=== PATIENT | female | born 1960 | race Caucasian/White ===

== ENCOUNTER 2019-04-14 09:38 | Inpatient (IN) ==
--- NOTE | 2019-04-12 13:59 | PAT Medication Instructions ---
Medication Instructions Date of Service April 12, 2019 Home Medications Medication Instructions Recorded sennosides [Senokot] 8.6 mg PO HS #30 tab 04/11/19 lisinopril 20 mg-hydrochlorothiazide 12.5 mg tablet 0.5 tab PO QAM multivitamin tablet 1 tab PO DAILY calcium carbonate 500 mg calcium (1,250 mg) chewable tablet 500 mg PO DAILY denosumab [Prolia] 60 mg SUBCUT .[id number] sennosides [Senokot] 8.6 mg PO HS docusate sodium [Colace] 100 mg PO BID PRN oxycodone 5 mg PO Q6H PRN Continue as directed denosumab [Prolia] 60 mg SUBCUT .[id number] DO NOT take the morning of surgery lisinopril 20 mg-hydrochlorothiazide 12.5 mg tablet 0.5 tab PO QAM multivitamin tablet 1 tab PO DAILY calcium carbonate 500 mg calcium (1,250 mg) chewable tablet 500 mg PO DAILY docusate sodium [Colace] 100 mg PO BID PRN Take morning of surgery With a small sip of water, OTHERWISE NOTHING TO EAT OR DRINK AFTER MIDNIGHT: oxycodone 5 mg PO Q6H PRN (okay to take up to 4 hours prior to surgery if needed) Take evening before surgery oxycodone 5 mg PO Q6H PRN (if needed) Other Notes If you have any questions please call us at [phone] or [phone] or [phone] or [phone]
--- NOTE | 2019-04-12 14:10 | Anesthesiology Consultation ---
Date of Service April 12, 2019 Assessment & Plan (1) Encounter for pre-operative examination: Chart Review Chart Review: Acceptable Risk for Surgery (pending preop testing (labs, EKG)) and Patient seen in Pre Admission Testing Teaching & Discussion Pre-Anesthesia Teaching/Discussion Notes: Instructed NPO after midnight before surgery,except medications with 15 cc of water. Medication instructions provided according to the PAT guidelines. History Surgery Operation Date: 04/14/19 12:00 Proposed Procedures p Right Laparoscopic Hand Assisted Nephrectomy - Roe Infante MD Height/Weight Height: 4 ft 11.75 in Weight: 71.4 kg Allergies Allergy/AdvReac Type Severity Reaction Status Date / Time No Known Allergies Allergy Verified 04/12/19 13:45 Medications Home Medications Medication Instructions Recorded Confirmed Last Taken lisinopril 20 0.5 tab PO QAM #30 tab 02/20/19 04/12/19 Unknown mg-hydrochlorothiazide 12.5 mg tablet multivitamin tablet 1 tab PO DAILY 02/20/19 04/12/19 Unknown calcium carbonate 500 mg calcium 500 mg PO DAILY tab 03/08/19 04/12/19 Unknown (1,250 mg) chewable tablet denosumab [Prolia] 60 mg SUBCUT .[id number] 04/11/19 04/12/19 Unknown sennosides [Senokot] 8.6 mg PO HS #30 tab 04/11/19 04/12/19 Unknown docusate sodium [Colace] 100 mg PO BID PRN 04/12/19 04/12/19 Unknown oxycodone 5 mg PO Q6H PRN 04/12/19 04/12/19 Unknown Past Medical History Medical History Arthritis Hypertension Osteoporosis Asthma childhood; no current issues H. pylori infection HX Right kidney mass Exercise / Class Metabolic Activity II 4-5 Yardwork/Stairs/Walk up hill Past Family History Family History Mother Osteoporosis Diabetes Sister Diabetes Osteoporosis Hypertension Brother Hypertension Aunt Diabetes Hypertension Past Surgical History Surgical History History of foot surgery RT/LEFT FOOT History of tooth extraction Ulnar nerve entrapment at elbow RT/LEFT ULNAR NERVE RELEASE History of carpal tunnel surgery RT/LEFT History of colonoscopy History of surgery on wrist LEFT (BONE SPUR REMOVED) Past Anesthesia History No Hx of Anesthesia Complications (except PONV) and No Family Hx of Anesthesia Complications History of PONV No Hx of Motion Sickness and History of PONV Social History Smoking Status: Former smoker tobacco type: cigarettes Do You Dip or Chew Tobacco: No Smoking End Date: Quit 30 YEARS AGO Hx Alcohol Use: Yes Alcohol type: hard liquor alcohol intake frequency: holidays/special occasions only Hx Substance Use: No substance use type: does not use Review of Systems Patient denies chest pain, shortness of breath, dyspnea on exertion, cough, wheezing, palpitations. Physical Exam Vital Signs VITALS BP 111/68 P 72 TEMP 97.5 SP02 99%RA RESP 16 PHYSICAL Full neck and c-spine range of motion. Full TMJ range of motion. TMD 3 finger breaths Mallampati Score 2 Dentition: missing molars, upper front cap Lungs: clear throughout to auscultation Cardiac: regular rate and rhythm, no murmurs noted Spine: normal Carotid arteries: negative bruit Extremities: no edema Testing Laboratory Results 04/11/19 WBC 10.95 H/H 11.4/35.1 PLATELETS 305 SODIUM 139 POTASSIUM 3.6 CHLORIDE 104 CO2 24 BUN 24 CREATININE 1.0 GLUCOSE [address]: 04/12/19: No significant abnormality identified within the chest. No evidence for metastatic disease.
[~2019-04-14 09:38] MED LIST: CEFAZOLIN 2000MG 2,000 MG/15 ML SYR IV SCH; DEXAMETHASONE SOD INJ 4 MG/ML VIAL ONE; GLYCOPYRROLATE 0.2 MG/ML VIAL ONE; HYDROmorphone INJ 2 MG/ML SYR/VIAL ONE; LIDOCAINE HCL 2% 2 ML VIAL/AMP(20MG/ML) INFIL ONE; LR 15ML/HR IV SCH; MIDAZOLAM HCL 1 MG/ML 2ML VIAL ONE; NEOSTIGMINE METHYLSULFATE 5 MG/5 ML SYR ONE; ONDANSETRON INJ 2 MG/ML 2 ML VIAL ONE; PROPOFOL IV EMULSION 10 MG/ML 20 ML VIAL IV ONE; ROCURONIUM BROMIDE 10 MG/ML 5 ML VIAL ONE; fentaNYL citrate 100 MCG/2 ML VIAL ONE
[2019-04-14] MEDS ORDERED: ACETAMINOPHEN 1,000 MG/100 ML VIAL IV SCH (10:30)
[2019-04-14] MEDS ORDERED: BUPIVACAINE 0.5 % 5 MG/1 ML MPF 30ML VIAL ONE (10:47)
[2019-04-14] MEDS ORDERED: ePHEDrine sulfate 50 MG/ML AMP IV PRN (11:21)
[2019-04-14] MEDS ORDERED: ATROPINE SULFATE 0.1 MG/ML 10ML SYR IV PRN (11:21)
[2019-04-14] MEDS ORDERED: ONDANSETRON INJ 2 MG/ML 2 ML VIAL IV PRN ×2 (11:21→14:22)
[2019-04-14] MEDS ORDERED: SCOPOLAMINE 1.5 MG TDSY TD ONE (11:35)
--- NOTE | 2019-04-14 11:58 | History & Physical Bridge Note ---
Date of Service April 14, 2019 History & Physical Bridge Note I have examined the patient, reviewed the History & Physical and in the interval since the performance of the History & Physical I have noted the following changes of clinical significance: no changes noted
[2019-04-14] MEDS ORDERED: KETAMINE HCL INJ 50 MG/ML 10 ML VIAL ONE (12:25)
[2019-04-14] MEDS ORDERED: PHENYLEPHRINE 100MCG/ML 5ML SYR ONE (12:40)
[2019-04-14] MEDS ORDERED: fentaNYL citrate 100 MCG/2 ML VIAL ONE (13:15)
[2019-04-14] MEDS ORDERED: SURGICEL ABSORB HEMOSTAT 2IN X 14IN TOP ONE (13:46)
[2019-04-14] MEDS ORDERED: ONDANSETRON INJ 2 MG/ML 2 ML VIAL ONE (13:55)
[2019-04-14] MEDS ORDERED: TISSEEL FIBRIN SEALANT 10ML TOP ONE (14:00)
[2019-04-14] MEDS ORDERED: OXYCODONE/ACETAMINOPHEN 5mg/325mg TAB PO PRN ×2 (14:22)
[2019-04-14] MEDS ORDERED: ACETAMINOPHEN 325 MG TAB PO PRN (14:22)
[2019-04-14] MEDS ORDERED: HYDROmorphone INJ 1 MG/ML SYRINGE IV PRN (14:26)
[2019-04-14] MEDS ORDERED: HYDROmorphone INJ 2 MG/ML SYR/VIAL IV PRN (14:26)
[2019-04-14] MEDS ORDERED: DOCUSATE SODIUM 100 MG CAP PO PRN (14:27)
[2019-04-14] MEDS: fentaNYL citrate 100 MCG/2 ML VIAL IV PRN ×5 (14:45→15:06)
--- NOTE | 2019-04-14 14:51 | Operative Report ---
Post Operative Report Pre & Post Diagnosis Operation Date: 04/14/19 12:00 Pre-Op Diagnosis: Right Renal Mass Post-Op Diagnosis: Right Renal Mass Procedure Operation Date: 04/14/19 12:00 Actual Procedures p Laparoscopic Hand Assisted Right Radical Nephrectomy(Right) - Roe Infante MD Surgeon Roe Infante MD Commercial Roofing Estimator Alivia Cheatham MD Estimated Blood Loss 200 Findings Consistent with Post-Op Diagnosis Specimens R kidney + LN Description of Procedure R MADELINN I attest to the content of the Intraoperative Record and any orders documented therein. Any exceptions are noted below.
[2019-04-14 15:03] LABS: Hematocrit (blood only) 33.3 % (37-47); Hemoglobin 10.7 g/dL (12.0-16.0); Mean Corpuscular Hemoglobin 23.8 pg (25-34); Mean Corpuscular Volume 74.2 fL (80-100); Mean Platelet Volume 8.6 fL (7.4-10.4); Platelet Count 274 K/uL (130-400); RDW Coefficient of Variation 16.3 % (11.5-14.5); RDW Standard Deviation 43.9 fL (36.4-46.3); Red Blood Count 4.49 M/uL (4.2-5.4)
[2019-04-14 15:13] LABS: Partial Thromboplastin Ratio 0.9; Partial Thromboplastin Time 25.4 Seconds (21.0-31.0); Prothrombin Time 10.4 Seconds (9.0-12.0)
[2019-04-14 15:15] LABS: Mean Corpuscular Hgb Conc 32.1 g/dL (32-36)
[2019-04-14 15:29] LABS: BUN Creatinine Ratio 15.3 (10-20); Calcium 8.7 mg/dl (8.5-10.1); Creatinine Clr Calc Pharmacy 52.9 ml/min; Est GFR (African American) 71.9; Est GFR (Non-African American) 62.1; Potassium 4.1 mmol/L (3.5-5.1)
[2019-04-14 15:37] LABS: Basophils # (auto) 0.01 K/uL (0-0.2); Basophils % (auto) 0.1 %; Eosinophils # (auto) 0.02 K/uL (0-0.5); Eosinophils % (auto) 0.1 %; Immature Granulocytes # (auto) 0.05 K/uL (0.00-0.02); Immature Granulocytes % (auto) 0.3 %; Lymphocytes # (auto) 1.14 K/uL (1.2-3.4); Lymphocytes % (auto) 7.2 %; Monocytes # (auto) 0.34 K/uL (0.11-0.59); Monocytes % (auto) 2.2 %; Neutrophils # (auto) 14.24 K/uL (1.4-6.5); Neutrophils % (auto) 90.1 %
--- NOTE | 2019-04-14 15:37 | Operative Report ---
DATE OF OPERATION: 04/14/2019 PREOPERATIVE DIAGNOSIS: A 13 x 10 x 8 cm right renal mass with perinephric adenopathy. POSTOPERATIVE DIAGNOSIS: A 13 x 10 x 8 cm right renal mass with perinephric adenopathy. PROCEDURE: Right-sided hand-assisted laparoscopic radical nephrectomy. SURGEON: Roe Infante MD. GUARD DRIVER: Yusuf Cheatham MD. The foundation assistant was present throughout the case for retraction, management of the laparoscopic camera, instrument passage, patient positioning, wound closure and general patient safety. ESTIMATED BLOOD LOSS: 200 mL. SPECIMENS SENT TO PATHOLOGY: Right kidney plus perinephric lymph nodes. DRAINS LEFT IN PLACE: Include a 16-[place] Mart catheter to gravity drainage. ANESTHESIA: General anesthesia with endotracheal intubation plus local at port sites. COMPLICATIONS: None. FINDINGS: Large, nodular and indurated right renal mass with nodes remaining adherent to tumor and IVC, and plane of dissection noted to be clean at the completion of the case. BRIEF HISTORY: Ms. Mccormick is a pleasant 58-year-old female who has presented earlier this week with acute right flank pain and underwent imaging via the Emergency Room. This has demonstrated a large and worrisome right renal mass with evidence of local marielena metastases. No evidence of distant metastases is present on CT scan of the abdomen nor on CT scan of the chest, which has been obtained perioperatively. Seeing the worrisome nature of the patient's imaging findings, she is being brought to the operating room for prompt extirpated surgery. Please see outpatient H and P for further details. Intravenous Ancef was provided for antibiotic coverage today and SCDs were used for DVT prophylaxis. Intravenous Tylenol was provided perioperatively for analgesic purposes. DESCRIPTION OF PROCEDURE: The patient was properly identified and brought into the operative suite after identification of appropriate consent on the chart. General anesthesia with endotracheal intubation was initiated and the patient was prepped and draped in standard fashion for this procedure. daytime babysitter-out procedure was followed. The patient was placed in a gentle right flank up position with all pressure points being padded and an axillary roll being present. Right arm was placed within an arm sling and the table was flexed. After this was complete, the patient was prepped and draped. A Andrews incision was made in the right lower quadrant and brought down to the fascia of the external oblique. This was incised and the abdomen was sharply entered using Metzenbaum scissors without any evidence of injury to the intra-abdominal contents. Wound was enlarged over the surgeon's finger and a hand port was placed. Abdomen was inspected and noted to be free of any worrisome adhesions in the midline. Nodular mass consistent with the patient's CT scan imaging was appreciated over the right kidney. Abdomen was insufflated to 15 mmHg and 2 additional 12 mm ports were placed in the mid clavicular line. The patient's mass was noted to contain a relative paucity of covering fat and be associated with numerous large and tortuous pathologic vessels. The white line of Toldt was identified and the colon was noted to be well removed. This was incised using Harmonic scalpel and the colon was mobilized medially. Thankfully, a plane of dissection medial to the tumor was found. The renal hilum was appreciated to be in a rather cephalad location with the kidney being pushed upward from the inferior pole mass. Dissection was carried on the medial aspect until the lateral aspect of the inferior vena cava was identified. Gonadal vein and ureter were not convincingly identified over the course of this dissection until later. Following the lateral plane of the IVC, the psoas muscle was easily identified thanks to a paucity of intra-abdominal fat. This allowed for lateral traction on the kidney and mobilization of the medial plane of dissection towards the hilum. A large number of thick and vascular adhesions were identified between the IVC and the kidney inferior to the renal hilum and were taken using a vascular staple load. This dissection was continued until the renal vein and renal artery were able to be palpated and circumscribed. These were taken using separate vascular staple loads until the kidney was devascularized. Thick lower pole attachments off the tumor were able to be taken with a vascular staple load. The ureter was noted to be in a posterior location behind the renal mass having been pushed laterally by the tumor mass. After the lower pole was freed, the upper pole of the kidney, which was normal on imaging and on palpation, was able to be circumscribed. Again vascular staple loads were taken to the level of the adrenal gland, which was noted to be grossly uninvolved to complete the mobilization of the kidney. The kidney was removed from the abdomen and handed off as a specimen. The plane of dissection was inspected and noted to be free of any residual palpably abnormal or marielena tissue. IVC was noted to be well cleaned over the extent which had been involved on CT scan imaging. Therefore, no further dissection was felt to be necessary at this time to remove more abnormal tissue. Surgicel as well as Tisseel tissue sealants were used over the surgical bed for additional hemostasis. Intra-abdominal pressure was lowered with no evidence of any active bleeding or oozing. The colon was replaced in its normal anatomic position and abdomen was desufflated, and ports and hand port were removed. Sponge and instrument count was noted to be correct. Flexion was removed from the table and the incision was closed in 2 layers using 0 Vicryl suture in a running fashion on the internal musculature and peritoneum and #1 Vicryl in both running and interrupted suture on a relatively flimsy external oblique fascia. Subcutaneous tissues were closed using 3-0 Vicryl and skin was closed using 4-0 Monocryl and Dermabond. The fascia was also closed at the level of the 12 mm ports with 0 Vicryl suture on a UR-6 followed by 4-0 Monocryl at the skin and Dermabond as well. Excess carbon dioxide gas had been removed from the abdomen prior to completion of closure. Anesthesia was reversed and the patient was transferred to the recovery room in stable condition. FOLLOWUP CARE: The patient will be admitted to the floor for standard postoperative management. I attest to the content of the Intraoperative Record and any orders documented therein. Any exception s are noted below.
[2019-04-14] MEDS: CHECK SCOPOLAMINE PATCH PLACEMENT SCH ×2 (16:00→23:32)
--- NOTE | 2019-04-14 16:22 | Anesthesiology Progress Note ---
Date of Service April 14, 2019 Anesthesia Post Procedure Vital Signs Vital Signs: Temp Pulse Pulse Resp BP Pulse Ox 04/14/19 15:35 36.4 C L 45 L 18 127/55 L 100 04/14/19 15:25 36.4 C L 47 L 19 123/57 L 100 04/14/19 15:15 36.4 C L 57 L 20 131/52 L 92 04/14/19 15:05 36.1 C L 52 L 14 140/63 100 04/14/19 14:55 36.1 C L 53 L 15 139/79 100 04/14/19 14:45 36.1 C L 54 L 19 150/71 H 100 04/14/19 14:37 36.1 C L 61 20 128/75 100 04/14/19 10:15 36.9 C 77 18 137/68 98 Pain Intensity Abdomen: Pain Intensity: 2 Transfer of Care Handoff Completed per policy Notes Mental Status: alert / awake / arousable and participated in evaluation Patient Amnestic to Procedure: Yes Nausea / Vomiting: adequately controlled Pain: adequately controlled Airway Patency, RR, SpO2: stable & adequate BP & HR: stable & adequate Hydration State: stable & adequate Anesthetic Complications: no major complications apparent and Pt Satisfied with anesthetic care
[2019-04-14] MEDS: CEFAZOLIN 2000MG 2,000 MG/15 ML SYR IV SCH (21:37)
[2019-04-14] MEDS: SENNA 8.6 MG TAB PO SCH (21:38)
[2019-04-14] MEDS: LACTATED RINGER'S 1,000 ML IV SCH ×2 (22:02→22:03)
[2019-04-15] MEDS: CEFAZOLIN 2000MG 2,000 MG/15 ML SYR IV SCH (04:00)
[2019-04-15 06:02] LABS: Basophils # (auto) 0.01 K/uL (0-0.2); Basophils % (auto) 0.1 %; Hematocrit (blood only) 33.5 % (37-47); Hemoglobin 10.9 g/dL (12.0-16.0); Immature Granulocytes # (auto) 0.02 K/uL (0.00-0.02); Immature Granulocytes % (auto) 0.2 %; Lymphocytes % (auto) 11.1 %; Mean Corpuscular Hemoglobin 23.8 pg (25-34); Mean Corpuscular Hgb Conc 32.5 g/dL (32-36); Mean Corpuscular Volume 73.1 fL (80-100); Mean Platelet Volume 8.7 fL (7.4-10.4); Monocytes # (auto) 1.05 K/uL (0.11-0.59); Neutrophils # (auto) 9.31 K/uL (1.4-6.5); Neutrophils % (auto) 79.6 %; Platelet Count 294 K/uL (130-400); RDW Coefficient of Variation 16.1 % (11.5-14.5); RDW Standard Deviation 42.7 fL (36.4-46.3); Red Blood Count 4.58 M/uL (4.2-5.4); White Blood Count 11.69 K/uL (4.8-10.8)
[2019-04-15 06:30] LABS: BUN Creatinine Ratio 11.6 (10-20); Calcium 8.2 mg/dl (8.5-10.1); Creatinine Clr Calc Pharmacy 44.8 ml/min; Est GFR (African American) 58.9; Est GFR (Non-African American) 50.8; Potassium 4.1 mmol/L (3.5-5.1)
[2019-04-15] MEDS: LACTATED RINGER'S 1,000 ML IV SCH (07:37)
[2019-04-15] MEDS: CALCIUM CARBONATE 1250MG TAB PO SCH (08:11)
[2019-04-15] MEDS: LISINOPRIL/HCTZ 20/12.5MG 1 TAB TAB PO SCH (08:11)
--- NOTE | 2019-04-15 08:42 | Urology Progress Note ---
Date of Service April 15, 2019 Assessment & Plan (1) Kidney mass: A/P 58 yo female POD#1 s/p R HALN. Doing well. Full liquids this AM. Advance activity. DC IVF later today if tolerating PO well. Consider advancing diet to soft mechanical later depending on results. Findings reviewed. Labwork acceptable - stable Hb, minimal rise in Cr so far. Patient with dilated and bleeding vessels in OR and bruising at incisions - Heparin held OVN, will provide SQ today. Subjective 58 yo female POD#1 s/p R HALN. She reports being OOBTC yesterday, taking clears this AM without nausea or emesis. Still groggy, feeling appropriate abdominal pain at side of hand port. No other events or complaints noted. Review of Systems Constitutional: no fever and no chills Eyes: no diplopia Ear, Nose, Mouth, Throat: no ear trauma Respiratory: no hemoptysis Cardiovascular: no chest pain Gastrointestinal: + abdominal pain Integumentary: no acne and no boil Neurologic: no paralysis Psychiatric: no hopelessness Allergy / Immunological: no tongue swelling Physical Exam Constitutional: WD/WN, vitals as above Eyes: eyes not dysmorphic ENMT: Ears: no external ear abnormality Neck: trachea midline; no anterior neck swelling Respiratory: no respiratory distress and does not use accessory muscles Cardiovascular: Vessels: radial pulses present Gastrointestinal (Abdomen): Inspection/Auscultation: abdomen not distended Percussion/Palpation: + abdomen tender (minimal, appropriate) and abdomen soft inc c/d/i with unchanged ecchymosis Musculoskeletal: Head/Neck/Chest: normocephalic and neck supple Skin: normal turgor Neurologic: awake; not obtunded Psychiatric: Orientation: oriented x 3 Lymphatic: no lymphadenopathy Results & Data Vital Signs (Past 12 Hours) Vital Signs Temp Pulse Resp BP Pulse Ox 04/15/19 07:26 36.8 C 71 16 144/75 H 98 04/15/19 03:57 37.1 C 67 18 156/79 H 95 04/14/19 23:59 36.9 C 66 17 160/78 H 97 PG Care Time/CCT Total # of Minutes Spent Total Time Spent with Patient: Total time spent is greater than 50% in coordination of care (as documented) at patient's floor/unit and/or counseling patient:
[2019-04-15] MEDS: HEPARIN SOD 5,000 UNIT/0.5 ML VIAL SQ SCH ×2 (11:28→21:23)
--- NOTE | 2019-04-15 17:02 | Anesthesiology Progress Note ---
Date of Service April 15, 2019 Anesthesia Post Procedure Vital Signs Vital Signs: Temp Pulse Resp BP Pulse Ox 04/15/19 15:33 37.2 C 75 17 159/84 H 98 04/15/19 11:27 64 18 162/79 H 96 04/15/19 07:26 36.8 C 71 16 144/75 H 98 04/15/19 03:57 37.1 C 67 18 156/79 H 95 04/14/19 23:59 36.9 C 66 17 160/78 H 97 04/14/19 19:03 36.5 C 64 17 146/82 H 97 04/14/19 17:57 36.4 C L 54 L 16 155/77 H 100 Pain Intensity Abdomen: Pain Intensity: 5 Transfer of Care Handoff Completed per policy Notes Mental Status: alert / awake / arousable and participated in evaluation Patient Amnestic to Procedure: Yes Nausea / Vomiting: adequately controlled Pain: adequately controlled Airway Patency, RR, SpO2: stable & adequate BP & HR: stable & adequate Hydration State: stable & adequate Anesthetic Complications: no major complications apparent and Pt Satisfied with anesthetic care
[2019-04-15] MEDS: SENNA 8.6 MG TAB PO SCH (21:23)
[2019-04-16] MEDS: CALCIUM CARBONATE 1250MG TAB PO SCH (07:35)
[2019-04-16] MEDS: LISINOPRIL/HCTZ 20/12.5MG 1 TAB TAB PO SCH (07:35)
--- NOTE | 2019-04-16 10:36 | Urology Progress Note ---
Date of Service April 16, 2019 Assessment & Plan (1) Kidney mass: 58 yo female POD#2 s/p R HALN, doing well. Regular diet this AM. If tolerates, DC home. Rx for Colace and narcotic provided. Postop limitations reviewed, postop visit confirmed. Patient vocalizes good understanding of the DC plan. Subjective 58 yo female POD#2 s/p R HALN, doing well. She was ambulatory yesterday, notes no pain but "soreness" in abdomen, no f/c/n/v, no BM, no distension, tolerating full liquids, hungry for more. Past notes reviewed, AM labs pending. Review of Systems Constitutional: no fever and no chills Eyes: no diplopia Ear, Nose, Mouth, Throat: no ear trauma Respiratory: no hemoptysis Cardiovascular: no chest pain Integumentary: no acne and no boil Neurologic: no paralysis Psychiatric: no hopelessness Allergy / Immunological: no tongue swelling Physical Exam Constitutional: WD/WN, vitals as above Eyes: eyes not dysmorphic ENMT: Ears: no external ear abnormality Neck: trachea midline; no anterior neck swelling Respiratory: no respiratory distress and does not use accessory muscles Cardiovascular: Vessels: radial pulses present Gastrointestinal (Abdomen): Inspection/Auscultation: abdomen not distended Percussion/Palpation: + abdomen tender (minimal, appropriate) and abdomen soft inc c/d/i with stable bruising Musculoskeletal: Head/Neck/Chest: normocephalic and neck supple Skin: normal turgor Neurologic: awake; not obtunded Psychiatric: Orientation: oriented x 3 Lymphatic: no lymphadenopathy Results & Data Vital Signs (Past 12 Hours) Vital Signs Temp Pulse Resp BP Pulse Ox 04/16/19 07:25 37.2 C 84 19 154/82 H 95 04/15/19 22:59 37.4 C 80 16 148/87 H 94 Laboratory Results Laboratory Results - last 48 hr 04/14/19 04/14/19 04/14/19 14:56 14:56 14:56 WBC 15.80 H RBC 4.49 Hgb 10.7 L Hct 33.3 L MCV 74.2 L MCH 23.8 L MCHC 32.1 RDW Std Deviation 43.9 RDW Coeff of Ebony 16.3 H Plt Count 274 MPV 8.6 Immature Gran % (Auto) 0.3 Neut % (Auto) 90.1 Lymph % (Auto) 7.2 Hughes % (Auto) 2.2 Eos % (Auto) 0.1 Baso % (Auto) 0.1 Immature Gran # (Auto) 0.05 H Neut # (Auto) 14.24 H Lymph # (Auto) 1.14 L Hughes # (Auto) 0.34 Eos # (Auto) 0.02 Baso # (Auto) 0.01 PT 10.4 INR 1.0 APTT 25.4 PTT Ratio 0.9 Sodium 142 Potassium 4.1 Chloride 111 H Carbon Dioxide 26 Anion Gap 5.0 BUN 15 Creatinine 1.00 Est Cr Clr Drug Dosing 52.9 Est GFR ( Amer) 71.9 Est GFR (Non-Af Amer) 62.1 BUN/Creatinine Ratio 15.3 Glucose 129 H Calcium 8.7 Lipase Hepatitis C Ab Screen 04/15/19 04/15/19 04/15/19 05:34 05:34 05:34 WBC 11.69 H RBC 4.58 Hgb 10.9 L Hct 33.5 L MCV 73.1 L MCH 23.8 L MCHC 32.5 RDW Std Deviation 42.7 RDW Coeff of Ebony 16.1 H Plt Count 294 MPV 8.7 Immature Gran % (Auto) 0.2 Neut % (Auto) 79.6 Lymph % (Auto) 11.1 Hughes % (Auto) 9.0 Eos % (Auto) 0.0 Baso % (Auto) 0.1 Immature Gran # (Auto) 0.02 Neut # (Auto) 9.31 H Lymph # (Auto) 1.30 Hughes # (Auto) 1.05 H Eos # (Auto) 0.00 Baso # (Auto) 0.01 PT INR APTT PTT Ratio Sodium 138 Potassium 4.1 Chloride 106 Carbon Dioxide 25 Anion Gap 7.0 BUN 14 Creatinine 1.18 Est Cr Clr Drug Dosing 44.8 Est GFR ( Amer) 58.9 Est GFR (Non-Af Amer) 50.8 BUN/Creatinine Ratio 11.6 Glucose 113 H Calcium 8.2 L Lipase 93 Hepatitis C Ab Screen Neg PG Care Time/CCT Total # of Minutes Spent Total Time Spent with Patient: Total time spent is greater than 50% in coordination of care (as documented) at patient's floor/unit and/or counseling patient:
[2019-04-16 10:37] LABS: Basophils # (auto) 0.01 K/uL (0-0.2); Basophils % (auto) 0.1 %; Eosinophils # (auto) 0.02 K/uL (0-0.5); Eosinophils % (auto) 0.2 %; Hematocrit (blood only) 33.7 % (37-47); Hemoglobin 11.2 g/dL (12.0-16.0); Immature Granulocytes # (auto) 0.04 K/uL (0.00-0.02); Immature Granulocytes % (auto) 0.3 %; Lymphocytes # (auto) 1.78 K/uL (1.2-3.4); Lymphocytes % (auto) 13.8 %; Mean Corpuscular Hemoglobin 24.6 pg (25-34); Mean Corpuscular Hgb Conc 33.2 g/dL (32-36); Mean Corpuscular Volume 73.9 fL (80-100); Mean Platelet Volume 8.8 fL (7.4-10.4); Monocytes # (auto) 1.08 K/uL (0.11-0.59); Monocytes % (auto) 8.4 %; Neutrophils # (auto) 9.94 K/uL (1.4-6.5); Neutrophils % (auto) 77.2 %; Platelet Count 303 K/uL (130-400); RDW Coefficient of Variation 16.5 % (11.5-14.5); RDW Standard Deviation 44.8 fL (36.4-46.3); Red Blood Count 4.56 M/uL (4.2-5.4); White Blood Count 12.87 K/uL (4.8-10.8)
--- NOTE | 2019-04-16 10:38 | Discharge Summary ---
Date of Service April 16, 2019 Admission HPI Per Admitting Provider Patient with a right renal mass being admitted for right hand-assisted laparoscopic nephrectomy and marielena dissection due to pathologic lymphadenopathy on CT scan. Please see H&P for further details. Admission Exam Per Admitting Provider See H&P Principal Diagnosis Right renal mass and pathologic lymphadenopathy. Discharge Exam Constitutional WD/WN, vitals as above Eyes eyes not dysmorphic ENMT Ears: no external ear abnormality Neck trachea midline; no anterior neck swelling Respiratory no respiratory distress and does not use accessory muscles Cardiovascular Vessels: radial pulses present Gastrointestinal (Abdomen) Inspection/Auscultation: abdomen not distended Percussion/Palpation: + abdomen tender (minimal, appropriate) and abdomen soft Musculoskeletal Head/Neck/Chest: normocephalic and neck supple Skin normal turgor Neurologic awake; not obtunded Psychiatric Orientation: oriented x 3 Lymphatic no lymphadenopathy Discharge Data Allergies Allergy/AdvReac Type Severity Reaction Status Date / Time hydromorphone [From Dilaudid] AdvReac Intermediate N/V Verified 04/14/19 10:45 Procedures Performed Operation Date: 04/14/19 12:00 Actual Procedures p Laparoscopic Hand Assisted Right Radical Nephrectomy(Right) - Roe Infante MD Hospital Course (1) Kidney mass: 58 yo female POD#2 s/p R HALN, doing well. Regular diet this AM. If tolerates, DC home. Rx for Colace and narcotic provided. Postop limitations reviewed, postop visit confirmed. Patient vocalizes good understanding of the DC plan. Total Time Total Time Spent Total Time Spent (In Minutes): 20 Total Time Includes: Examination of the Patient, Discharge Planning, Medication Reconciliation, Communication With Other Providers and Other Discharge Plan Discharge Items Patient Disposition: Home - Self-Care Reason For Visit: Renal Mass Discharge Diagnosis: Right renal mass with perinephric adenopathy s/p right hand assist lap nephrectomy. Condition: Good Discharge Goals: Therapeutic intervention Activity: Per 'Additional Instructions' section Activity Comment: walking and stairs in your home are okay Lifting: No more than 10 pounds Bathing: Keep incision dry Bathing Comment: okay to shower, no tub baths or soaking Sexual Activity: Wait until after follow-up appointment Exercise/Sports: Rest today and Wait until after follow-up appointment Driving/Machine Use: Resume 1 day after discharge Driving/Machine Use Comment: please do not drive while taking prescription pain control Non-emergency contact: Urologist Call non-emergency contact if: you have any medication questions, your symptoms worsen, your pain is not controlled, your pain is worsening, your pain is unusual for you, your temperature is above 101, your wound has increased redness and your wound has increased drainage Follow-up/Referrals: Roe Infante MD [Physician] - 04/29/19 2:30 pm Carloz Infante, [Primary Care Provider] - Diet: Regular Diet Comment: stay hydrated Addtl Provider Instructions: Please take all medications as prescribed and keep all follow-ups as scheduled. Please call our office at [phone] with any questions, concerns or need to reschedule appointments for any reason. We are happy to assist you. Recovering at home: We recommend having someone with you for the first few days after surgery to help care for you. It is okay to shower tomorrow. Please avoid swimming, bathing or using hot tub until incisions are well healed. Avoid driving until you are not requiring pain medication any further. Walk at least a few times a day. Increase your distance, as you feel able. Stairs in your home are okay. Please avoid strenuous or sexual activity until your follow-up. We recommend using stool softener (i.e. Colace) to prevent constipation and straining, especially the first two weeks post operatively. Call [facility] [place] [facility] at [phone] if you experience: Chest pain or trouble breathing (call 121 or go to the hospital). Fever of 101F or higher Symptoms of infection at incision site, including redness or swelling, warmth, or bad-smelling drainage If you have catheter, and you notice: o Bloody urine or drainage that is dark red or has large clots (Please remember a small amount of blood is normal) o No drainage from the catheter for more than 6 hours o The catheter comes out of your bladder Pain that is not controlled with medicines Prescriptions: Continued lisinopril-hydrochlorothiazide 20-12.5 mg tablet 0.5 tab PO QAM Qty: 30 RF: 0 multivitamin tablet 1 tab PO DAILY RF: 0 calcium carbonate [Calci-Chew] 500 mg calcium (1,250 mg) tablet,chewable 500 mg PO DAILY RF: 0 docusate sodium [Colace] 100 mg capsule 100 mg PO BID PRN (Reason: Constipation) Qty: 30 RF: 0 oxycodone 5 mg tablet 5 mg PO Q6H PRN (Reason: Pain) Qty: 20 RF: 0 Prolia 60 mg/mL syringe 60 mg subcut .[id number] RF: 0 sennosides [Senokot] 8.6 mg tablet 8.6 mg PO HS Qty: 30 RF: 0 Stand-Alone Forms: [facility] Discharge Orders: Discharge Order (Routine); Ordered 04/16/19 Ordered By: Roe Infante Admission Data Admit Date/Time: 04/14/19 14:22 Attending Provider: Roe Infante I. Admit Provider: Roe Infante I. Primary Care Provider: Carloz Infante Service: Surgical Services Other Pending Studies at Discharge: Yes Studies:: Pathology report
[2019-04-16] MEDS: HEPARIN SOD 5,000 UNIT/0.5 ML VIAL SQ SCH (11:21)
[2019-04-16 12:01] LABS: BUN Creatinine Ratio 9.4 (10-20); Calcium 9.3 mg/dl (8.5-10.1); Creatinine Clr Calc Pharmacy 41.3 ml/min; Est GFR (African American) 53.4; Potassium 3.9 mmol/L (3.5-5.1)
--- NOTE | 2019-04-20 06:08 | Coding Query ---
PATHOLOGY To promote full compliance with coding requirements relating to patient care, physician participation is requested in all cases of power generation equipment repairer uncertainty. Please assist us with the question(s) below: Please review the Pathology report and please document any relevant diagnosis(es) below: Diagnosis(es): Renal cell carcinoma with marielena metastasis. Thank you Chayito WHITLEY
== END 2019-04-16 14:01 | disposition home or self-care (01) | DRG 658 ==
LOC: ASU 09:38 → 3W 14:22

== ENCOUNTER 2019-07-30 10:23 | Inpatient (IN) ==
[2019-07-30] MEDS ORDERED: DiphenhydrAMINE HCL 50 MG/ML VIAL IV STA (10:54)
[2019-07-30] MEDS ORDERED: MoRPHine SULFATE 4 MG/ML 1 ML CARP\\VIAL IV STA (10:54)
[2019-07-30] MEDS ORDERED: ONDANSETRON INJ 2 MG/ML 2 ML VIAL IV STA (10:54)
[2019-07-30] MEDS ORDERED: SODIUM CHLORIDE 0.9% 500 ML IV SCH (11:00)
[2019-07-30 11:18] LABS: Basophils # (auto) 0.01 K/uL (0-0.2); Basophils % (auto) 0.1 %; Eosinophils # (auto) 0.21 K/uL (0-0.5); Hematocrit (blood only) 41.7 % (37-47); Hemoglobin 14.2 g/dL (12.0-16.0); Immature Granulocytes # (auto) 0.02 K/uL (0.00-0.02); Immature Granulocytes % (auto) 0.2 %; Lymphocytes # (auto) 2.03 K/uL (1.2-3.4); Lymphocytes % (auto) 19.1 %; Mean Corpuscular Hemoglobin 27.4 pg (25-34); Mean Corpuscular Hgb Conc 34.1 g/dL (32-36); Mean Corpuscular Volume 80.3 fL (80-100); Mean Platelet Volume 8.7 fL (7.4-10.4); Monocytes # (auto) 0.92 K/uL (0.11-0.59); Monocytes % (auto) 8.6 %; Neutrophils # (auto) 7.46 K/uL (1.4-6.5); Platelet Count 235 K/uL (130-400); RDW Coefficient of Variation 16.7 % (11.5-14.5); RDW Standard Deviation 48.9 fL (36.4-46.3); Red Blood Count 5.19 M/uL (4.2-5.4); White Blood Count 10.65 K/uL (4.8-10.8)
[2019-07-30 11:34] LABS: Alanine Aminotransferase 32 U/L (12-78); Albumin Level 3.5 gm/dl (3.4-5.0); Aspartate Aminotransferase 30 U/L (15-37); BUN Creatinine Ratio 19.7 (10-20); Blood Urea Nitrogen 30 mg/dl (7-18); Calcium 10.3 mg/dl (8.5-10.1); Carbon Dioxide 31 mmol/L (21-32); Chloride 108 mmol/L (98-107); Creatinine Clr Calc Pharmacy 34.5 ml/min; Est GFR (Non-African American) 37.1; Glucose 96 mg/dl (70-99); Lipase 281 U/L (73-393); Potassium 3.9 mmol/L (3.5-5.1); Sodium 143 mmol/L (136-145)
[2019-07-30 11:39] LABS: Albumin Globulin Ratio 0.8 (0.9-2); Alkaline Phosphatase 72 U/L (45-117); Bilirubin,Total 0.4 mg/dl (0.2-1); Globulin 4.2 gm/dl (2.5-4.0); Total Protein 7.7 gm/dl (6.4-8.2); Troponin I < 0.015 ng/ml (0-0.045)
[2019-07-30] MEDS ORDERED: IOVERSOL 100ml IV PRN (11:46)
--- NOTE | 2019-07-30 12:07 | CT Scan Report ---
CT abd pelvis IV con only CLINICAL HISTORY: 59 years-old Female presenting with epigastric and upper abdominal pain after chemo 4 days ago. TECHNIQUE: Multidetector CT of the abdomen and pelvis was performed after the administration of intra venous contrast. IV contrast: 93 mL of Optiray 320. One or more dose lowering techniques were used co nsistent with the principles of ALARA (as low as reasonably achievable), including automatic exposure control, mA or kV adjustment to individual patient size, and/or use of iterative reconstruction. COMPARISON: 06/20/2019. CT DOSE (mGy.cm): The estimated cumulative dose is 409.04 mGy.cm. 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 Lung bases: Normal heart size. No pericardial or pleural effusion. Minimal dependent changes likely a telectasis. Liver: Normal morphology. Redemonstration of several hepatic lesions, which measure up to 10 mm. Ther e is question of a new lesion in segment 8 (series 3 image 41). Additional lesions may also be new or better visualized on the current exam. Patent hepatic vasculature. Biliary: No intrahepatic or extrahepatic biliary ductal dilatation. There is peribiliary infiltrative change along the common duct. There may also be biliary wall enhancement and thickening. Normal gall bladder. Pancreas: Normal. Spleen: Normal. Splenule noted. Adrenal glands: Normal. Kidneys and ureters: Status post right nephrectomy. Traumatic interval decrease in size of the prior soft tissue nodule along the right psoas with a punctate residual nodule (series 3 image 224). The le ft kidney is normal apart from a nonobstructing 4 mm calculus at the lower pole. Cyst or calyceal div erticulum noted in the interpolar region of the left kidney. No hydronephrosis. Left ureter nondisten ded. Bladder: Normal. Pelvic organs: Uterus and ovaries normal. Bowel: A few diverticula noted in the sigmoid colon. No bowel wall thickening or pericolonic inflamma tory change. The appendix is normal. No bowel obstruction. Peritoneal cavity: No free fluid or intraperitoneal gas. Lymph nodes: No enlarged lymph nodes in the abdomen or pelvis. Vasculature: Aorta and IVC patent and normal in caliber. Abdominal wall: Normal. Musculoskeletal: No destructive osseous lesion. IMPRESSION: 1. Peribiliary inflammatory change with biliary wall thickening and enhancement. This is suspicious for ascending cholangitis. 2. Several hepatic lesions may be new from the prior exam raising concern for progression of disease . Remaining lesions are grossly stable. 3. Traumatic interval decrease in size of the metastatic deposit along the right psoas in the right nephrectomy bed. 4. Left nephrolithiasis. Electronically signed by: Irving Layton M.D. 07/30/2019 12:05 PM
[2019-07-30] MEDS ORDERED: PIPERACILL/TAZOBAC CONSULT ACTIVE PRN ×2 (12:54→15:34)
[2019-07-30] MEDS ORDERED: PIPERACILLIN/TAZOBACTAM 4.5 GM/120 ML BAG IV ONE (12:54)
--- NOTE | 2019-07-30 13:14 | Emergency Department Note ---
Entered by Eusebia Wilkins acting as a scribe for Hermann Bourgeois DO History of Present Illness General Chief complaint: Rash Stated complaint: ITCHY BLOTCHING ON CHEST & STOMACH PAIN - HIGH BP Time Seen by Provider: 07/30/19 10:46 Source: patient History of Present Illness Onset (ago): hour(s) (this morning) Location: chest Radiation: proximal (bilateral arms) and other (breasts) Pain Consistency: + other (episode) Maximum Pain Intensity: 3 Quality: + other (rash) Associated symptoms: + denies other symptoms (changes in bowel movements, urin dieudonne symptoms) and + other (epigastric abdominal pain, vomiting (x1), hyperte nsion) The patient is a 59 year old female that is presenting to the Emergency Room with complaints of an episode of a rash that started his morning. The patient reports that she first noticed a pruritic rash on her chest, breasts, and bilateral arms this morning. She notes that the rash is worse on her left arm than her right. She states that it is still present currently. She denies using any medications for her symptoms. She denies having had a similar rash in the past. She states that she has some waxing and waning epigastric abdominal pain that started yesterday. She reports that it feels like there is a bowling ball in her abdomen. She states that it radiates slightly into her back. She notes that she vomited once last night. She denies any diarrhea or constipation. She states that had a normal bowel movement around 0800 this morning. She denies any urinary symptoms. She notes that she had her kidney removed in 03/2019 secondary to cancer. The patient reports that she finished 5 rounds of radiation for a mass on her vaginal wall. She notes that she is currently on a daily chemotherapy medication and that she received her second infusion of another chemotherapy agent 4 days ago. She reports that her blood pressure has been elevated at home recently. Home Medications Home Medications Medication Instructions Recorded Confirmed Type lisinopril 20 0.5 tab PO QAM #30 tab 02/20/19 07/30/19 History mg-hydrochlorothiazide 12.5 mg tablet multivitamin 1 tab PO DAILY 02/20/19 07/30/19 History calcium carbonate 500 mg calcium 500 mg PO DAILY tab 03/08/19 07/30/19 History (1,250 mg) chewable tablet Prolia 60 mg SUBCUT UD 04/11/19 07/30/19 History ferrous sulfate 325 mg (65 mg 325 mg PO DAILY #30 tab 07/03/19 07/30/19 Rx iron) tablet axitinib 1 mg tablet 5 mg PO Q12H 07/12/19 07/30/19 History ondansetron HCl 4 mg tablet 4 mg PO Q8H PRN tab 07/12/19 07/30/19 History pembrolizumab 25 mg/mL intravenous 2 mg/kg IV UD ml 07/12/19 07/30/19 History solution Allergies Allergy/AdvReac Type Severity Reaction Status Date / Time hydromorphone [From Dilaudid] AdvReac Intermediate N/V Verified 07/30/19 11:28 Past Med/Surg History Medical History Anemia Arthritis Asthma childhood; no current issues Chronic kidney disease, stage II (mild) (Inactive) Fatigue (Inactive) H. pylori infection HX Hypertension Metastatic renal cell carcinoma Nausea (Inactive) Osteoporosis Renal cell carcinoma of right kidney (Inactive) 04/14/19 Dr. Vandana Infante Right kidney mass Vaginal bleeding (Inactive) Diagnosed with metastatic renal cell carcinoma of vaginal mass 06/19/19 Surgical History History of carpal tunnel surgery RT/LEFT History of colonoscopy History of foot surgery RT/LEFT FOOT for bilateral bone spurs and plantar fasciaitis Right foot also had surgery for 2 hammer toes History of nephrectomy, right (Inactive ~03/2019) History of surgery on wrist LEFT (BONE SPUR REMOVED) History of tooth extraction Ulnar nerve entrapment at elbow RT/LEFT ULNAR NERVE RELEASE Family History Mother , 78 yo Osteoporosis Diabetes Stroke Hypertension Sister Diabetes Osteoporosis Hypertension Stroke Brother Hypertension Diabetes Aunt Diabetes Hypertension Stroke Father Unknown family medical history Family/Other Cervical cancer Lupus Multiple personalities Family/Other Medical history unknown Son No problems noted. Son No problems noted. Daughter No problems noted. 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 [email or web address] Feels Safe at Home: Yes Smoking Status: Former smoker Tobacco Type: cigarettes ; Age Started Using Tobacco: 16 ; Age Quit Using Tobacco: 39 ; packs per day: 0.5 ; Cigarettes Per Day: 1/2 PPD x 15 yrs when she smoked; ; Second Hand Exposure: No ; Hx Alcohol Use: Yes Alcohol type: hard liquor Alcohol Intake Frequency: Rarely Hx Substance Use: No caffeine: Yes (1 cup/day) during the past year weight has: remained stable Dental Care, Regularly: Yes Physical Activity Frequency: 3-4 Times per Week Seatbelt Use: always Review of Systems See HPI for pertinent positives & negatives. and A total of 10 systems reviewed and were otherwise negative Physical Exam Vital Signs Vital Signs - 24 hr 07/30/19 10:32 Temperature 36.8 C Temperature Source Oral Pulse Rate 80 Respiratory Rate 25 H Respiratory Effort / Characteristics Non-Labored Respiratory Depth Normal Respiratory Pattern Regular Blood Pressure 199/104 H Blood Pressure Mean 135 Blood Pressure Position Sitting Pulse Oximetry 99 Oxygen Delivery Method Room Air Sepsis Recent Fever Within 48 Hours No Sepsis New/Unexplained Change in Mental Status No Sepsis Action Taken by Nursing No Action Required CONSTITUTIONAL/VITAL SIGNS: Reviewed / noted above. GENERAL: Non-toxic in appearance. INTEGUMENTARY: Warm, dry, and [place]. Very faint rash noted on the left lateral shoulder and anterior chest. HEAD: Normocephalic. EYES: without scleral icterus or trauma. ENT/OROPHARYNX: clear and moist. LYMPHADENOPATHY/NECK: Is supple without lymphadenopathy or meningismus. RESPIRATORY: Lungs clear and equal. CARDIOVASCULAR: Regular rate and rhythm. GI/ABDOMEN: Soft. No organomegaly or pulsatile mass. No rebound or guarding. Normal bowel sounds. Tenderness to palpation of epigastric area of abdomen. EXTREMITIES: Warm and well perfused. BACK: No CVA tenderness. NEUROLOGICAL: Intact without focal deficits. PSYCHIATRIC: normal affect. MUSCULOSKELETAL: Normally developed with good muscle tone. Course Course 1047:The patient was evaluated in room C10. A complete history and physical examination was performed. 1301: Upon reevaluation, the patient is resting comfortably. I discussed laboratory and radiographic results with the patient. She verbalized agreement of the treatment plan. The patient will be evaluated for further management and care. 1313: I discussed the patient's case with Dr. David, [facility], who will evaluate the patient for further management and care. Administered Medications Ioversol (Optiray 320 100ml) 93 ml IV ONCE PRN PRN Reason: Interaction Checking Stop: 08/03/19 11:45 Last Admin: 07/30/19 11:48 Dose: 93 ml Documented by: [id number] Discontinued Medications Diphenhydramine HCl (Benadryl) 50 mg IV NOW STA Stop: 07/30/19 10:55 Last Admin: 07/30/19 11:12 Dose: 50 mg Documented by: [id number] Sodium Chloride (Nss) 500 mls @ 999 mls/hr IV .Q31M AKHIL Stop: 07/30/19 11:30 Last Infusion: 07/30/19 12:04 Dose: 0 mls/hr Documented by: [id number] Admin: 07/30/19 11:13 Dose: 999 mls/hr Documented by: [id number] Morphine Sulfate (Morphine Sulfate) 4 mg IV NOW STA Stop: 07/30/19 10:55 Last Admin: 07/30/19 11:13 Dose: 4 mg Documented by: [id number] Ondansetron HCl (Zofran) 4 mg IV NOW STA Stop: 07/30/19 10:55 Last Admin: 07/30/19 11:12 Dose: 4 mg Documented by: [id number] Medical Decision Making Differential Diagnosis Differential considered: pancreatitis, hepatitis, or acute cholecystitis, AAA, UTI, pyelonephritis, kidney stones, appendicitis, diverticulitis, shingles, bowel obstruction mesenteric ischemia, intussusception,hernia, ovarian torsion, ruptured ovarian. Medical Records Attestation: I reviewed the patient's medical records. Home Medications Current Medication List: was personally reviewed by me Laboratory Data Attestation: I reviewed the patient's lab results. Result diagrams: 07/30/19 11:09 07/30/19 11:09 Lab Results 07/30/19 07/30/19 Range/Units 11: 11:09 WBC 10.65 (4.8-10.8) K/uL RBC 5.19 (4.2-5.4) M/uL Hgb 14.2 (12.0-16.0) g/dL Hct 41.7 (37-47) % MCV 80.3 (80-100) fL MCH 27.4 (25-34) pg MCHC 34.1 (32-36) g/dL RDW Std Deviation 48.9 H (36.4-46.3) fL RDW Coeff of Ebony 16.7 H (11.5-14.5) % Plt Count 235 (130-400) K/uL MPV 8.7 (7.4-10.4) fL Immature Gran % (Auto) 0.2 % Neut % (Auto) 70.0 % Lymph % (Auto) 19.1 % [place] % (Auto) 8.6 % Eos % (Auto) 2.0 % Baso % (Auto) 0.1 % Immature Gran # (Auto) 0.02 (0.00-0.02) K/uL Neut # (Auto) 7.46 H (1.4-6.5) K/uL Lymph # (Auto) 2.03 (1.2-3.4) K/uL [place] # (Auto) 0.92 H (0.11-0.59) K/uL Eos # (Auto) 0.21 (0-0.5) K/uL Baso # (Auto) 0.01 (0-0.2) K/uL Sodium 143 (136-145) mmol/L Potassium 3.9 (3.5-5.1) mmol/L Chloride 108 H (98-107) mmol/L Carbon Dioxide 31 (21-32) mmol/L Anion Gap 4.0 (3-11) BUN 30 H (7-18) mg/dl Creatinine 1.52 H (0.6-1.2) mg/dl Est Cr Clr Drug Dosing 34.5 ml/min Est GFR ( Amer) 43.0 Est GFR (Non-Af Amer) 37.1 BUN/Creatinine Ratio 19.7 (10-20) Glucose 96 (70-99) mg/dl Calcium 10.3 H (8.5-10.1) mg/dl Total Bilirubin 0.4 (0.2-1) mg/dl AST 30 (15-37) U/L ALT 32 (12-78) U/L Alkaline Phosphatase 72 (45-117) U/L Troponin I < 0.015 (0-0.045) ng/ml Total Protein 7.7 (6.4-8.2) gm/dl Albumin 3.5 (3.4-5.0) gm/dl Globulin 4.2 H (2.5-4.0) gm/dl Albumin/Globulin Ratio 0.8 L (0.9-2) Lipase 281 (73-393) U/L Imaging Data Radiologist's Impression: Radiology results as stated below per my review and the radiologist's interpretation: CT abd pelvis IV con only CLINICAL HISTORY: 59 years-old Female presenting with epigastric and upper abdominal pain after chemo 4 days ago. TECHNIQUE: Multidetector CT of the abdomen and pelvis was performed after the administration of intravenous contrast. IV contrast: 93 mL of Optiray 320. One or more dose lowering techniques were used consistent with the principles of ALARA (as low as reasonably achievable), including automatic exposure control, mA or kV adjustment to individual patient size, and/or use of iterative reconstruction. COMPARISON: 06/20/2019. CT DOSE (mGy.cm): The estimated cumulative dose is 409.04 mGy.cm. FINDINGS: Bulk Receiver topogram: Surgical clips project over the right upper quadrant and right mid abdomen. Lung bases: Normal heart size. No pericardial or pleural effusion. Minimal dependent changes likely atelectasis. Liver: Normal morphology. Redemonstration of several hepatic lesions, which measure up to 10 mm. There is question of a new lesion in segment 8 (series 3 image 41). Additional lesions may also be new or better visualized on the current exam. Patent hepatic vasculature. Biliary: No intrahepatic or extrahepatic biliary ductal dilatation. There is peribiliary infiltrative change along the common duct. There may also be biliary wall enhancement and thickening. Normal gallbladder. Pancreas: Normal. Spleen: Normal. Splenule noted. Adrenal glands: Normal. Kidneys and ureters: Status post right nephrectomy. Traumatic interval decrease in size of the prior soft tissue nodule along the right psoas with a punctate residual nodule (series 3 image 224). The left kidney is normal apart from a nonobstructing 4 mm calculus at the lower pole. Cyst or calyceal diverticulum noted in the interpolar region of the left kidney. No hydronephrosis. Left ureter nondistended. Bladder: Normal. Pelvic organs: Uterus and ovaries normal. Bowel: A few diverticula noted in the sigmoid colon. No bowel wall thickening or pericolonic inflammatory change. The appendix is normal. No bowel obstruction. Peritoneal cavity: No free fluid or intraperitoneal gas. Lymph nodes: No enlarged lymph nodes in the abdomen or pelvis. Vasculature: Aorta and IVC patent and normal in caliber. Abdominal wall: Normal. Musculoskeletal: No destructive osseous lesion. IMPRESSION: 1. Peribiliary inflammatory change with biliary wall thickening and enhancement. This is suspicious for ascending cholangitis. 2. Several hepatic lesions may be new from the prior exam raising concern for progression of disease. Remaining lesions are grossly stable. 3. Traumatic interval decrease in size of the metastatic deposit along the right psoas in the right nephrectomy bed. 4. Left nephrolithiasis. Electronically signed by: Irving Layton M.D. 07/30/2019 12:05 PM ECG Data Attestation: I personally reviewed and interpreted this ECG as follows: Indication: + abdominal pain Rate (beats per minute): 70 Rhythm: + normal sinus ECG ST segments: no ST elevation ECG Findings: no PACs and no PVCs Blood Pressure Blood Pressure Findings: Elevated blood pressure Blood Pressure Disposition: Referred to patients primary care provider MDM Narrative This is a 59-year-old female who presents to the ED with a chief complaint of epigastric and right upper quadrant abdominal pain. The patient states that she also has a rash that is itchy on the left shoulder and chest.. The patient has a history of metastatic renal cell carcinoma. She is currently getting radiation therapy as well as chemotherapy. Her last chemotherapy session was on Wednesday, 4 days ago. The patient reports that her symptoms started yesterday. She denies any urinary symptoms. Last bowel movement was this morning and normal. She denies any new meds other than her chemo. She vomited once yesterday evening. Her physical exam reveals tenderness to the epigastric area. Her blood pressure was elevated. An EKG shows a normal sinus rhythm. CBC is normal. Chemistry panel was unremarkable. Troponin was negative. Lipase was negative. CT scan of the abdomen pelvis reveals findings concerning for a sending cholangitis. The patient was treated with IV fluids. She was also given some IV Zofran and morphine for her symptoms. She was given IV Benadryl for the rash. The patient's symptoms did seem to improve. She was ordered IV Zosyn after blood cultures. I spoke with the hospitalist, who will see the patient for further inpatient evaluation and care. Impression & Plan Ascending cholangitis, Epigastric abdominal pain, Rash Discharge Plan Visit Data Chief Complaint: Rash Stated Complaint: ITCHY BLOTCHING ON CHEST & STOMACH PAIN - HIGH BP ED Provider: Hermann Bourgeois Discharge Problem: Ascending cholangitis, Epigastric abdominal pain, Rash Patient Disposition: Being Evaluated by Hospitalist Forms Stand Alone Forms: My [facility] Prescriptions Prescriptions: No Action ondansetron HCl [Zofran] 4 mg tablet 4 mg PO Q8H PRN (Reason: Nausea) RF: 0 Keytruda 25 mg/mL solution 2 mg/kg IV UD RF: 0 Inlyta 1 mg tablet 5 mg PO Q12H RF: 0 ferrous sulfate [Iron (ferrous sulfate)] 325 mg (65 mg iron) tablet 325 mg PO DAILY Qty: 30 RF: 0 lisinopril-hydrochlorothiazide 20-12.5 mg tablet 0.5 tab PO QAM Qty: 30 RF: 0 multivitamin tablet 1 tab PO DAILY RF: 0 calcium carbonate [Calci-Chew] 500 mg calcium (1,250 mg) tablet,chewable 500 mg PO DAILY RF: 0 Prolia 60 mg/mL syringe 60 mg subcut UD RF: 0 Referrals Referrals: Carloz Infante, [Primary Care Provider] - The scribe's documentation has been prepared under my direction and personally reviewed by me in its entirety. I confirm that the note above accurately reflects all work, treatment, procedures, and medical decision making performed by me.
[2019-07-30] MEDS ORDERED: MoRPHine SULFATE 2 MG/ML CARP IV PRN (14:23)
[2019-07-30] MEDS ORDERED: KETOROLAC TROMETHAMINE 15 MG/ML VIAL IV PRN (14:23)
[2019-07-30] MEDS ORDERED: MoRPHine SULFATE 4 MG/ML 1 ML CARP\\VIAL IV PRN (14:23)
[2019-07-30] MEDS ORDERED: ONDANSETRON INJ 2 MG/ML 2 ML VIAL IV PRN (14:23)
--- NOTE | 2019-07-30 14:58 | History & Physical Report ---
Date of Service July 30, 2019 Assessment & Plan (1) Ascending cholangitis: Admit tele NPO IV Zosyn MRCP to further evaluate Consult gastroenterology (2) Epigastric abdominal pain: Pain and nausea control Pepcid IV 20mg BID (3) Metastatic renal cell carcinoma: Undergoing chemotherapy - last treatment 4 days prior Completed 5 radiation treatments S/P Right nephrectomy 04/03 Hold axitinib until able to take po. (4) Rash: Improved with dose of Benadryl in the ED Does not appear to be Zoster will monitor. (5) Acute kidney injury: Suspect due to decreased po intake and vomiting. Follow renal function as IVF are given overnight. (6) HTN (hypertension): Hold lisinopril/HCTZ PRN IV Hydralazine. History of Present Illness 59 y/o female presented to the ED with 2 complaints. 1) She developed a pruritic rash on her chest, breasts, and b/l arms this am. She is being treated for with chemotherapy for metastatic renal cell CA. She reports that she had the second infusion 4 days prior. She has also completed 5 rounds of radiation for a mass on vaginal wall. 2) She developed abdominal pain yesterday that she describes as a "bowling ball" sensation in the epigastric area. She has had nausea and vomited last night. No diarrhea or constipation. Last bm was this am and reported as normal. No dysuria or hematuria. She had right nephrectomy in04/03. Primary Care Provider: Carloz Infante DO Allergies Allergy/AdvReac Type Severity Reaction Status Date / Time hydromorphone [From Dilaudid] AdvReac Intermediate N/V Verified 07/30/19 11:28 Home Medications Home Medications Medication Instructions Recorded Confirmed Type lisinopril 20 0.5 tab PO QAM #30 tab 02/20/19 07/30/19 History mg-hydrochlorothiazide 12.5 mg tablet multivitamin 1 tab PO DAILY 02/20/19 07/30/19 History calcium carbonate 500 mg calcium 500 mg PO DAILY tab 03/08/19 07/30/19 History (1,250 mg) chewable tablet Prolia 60 mg SUBCUT UD 04/11/19 07/30/19 History ferrous sulfate 325 mg (65 mg 325 mg PO DAILY #30 tab 07/03/19 07/30/19 Rx iron) tablet axitinib 1 mg tablet 5 mg PO Q12H 07/12/19 07/30/19 History ondansetron HCl 4 mg tablet 4 mg PO Q8H PRN tab 07/12/19 07/30/19 History pembrolizumab 25 mg/mL intravenous 2 mg/kg IV UD ml 07/12/19 07/30/19 History solution Past Med/Surg History Medical History Anemia Arthritis Asthma childhood; no current issues Chronic kidney disease, stage II (mild) (Inactive) Fatigue (Inactive) H. pylori infection HX Hypertension Metastatic renal cell carcinoma Nausea (Inactive) Osteoporosis Renal cell carcinoma of right kidney (Inactive) 04/14/19 Dr. Vandana Infante Right kidney mass Vaginal bleeding (Inactive) Diagnosed with metastatic renal cell carcinoma of vaginal mass 06/19/19 Surgical History History of carpal tunnel surgery RT/LEFT History of colonoscopy History of foot surgery RT/LEFT FOOT for bilateral bone spurs and plantar fasciaitis Right foot also had surgery for 2 hammer toes History of nephrectomy, right (Inactive ~03/2019) History of surgery on wrist LEFT (BONE SPUR REMOVED) History of tooth extraction Ulnar nerve entrapment at elbow RT/LEFT ULNAR NERVE RELEASE Family History Mother , 78 yo Osteoporosis Diabetes Stroke Hypertension Sister Diabetes Osteoporosis Hypertension Stroke Brother Hypertension Diabetes Aunt Diabetes Hypertension Stroke Father Unknown family medical history Family/Other Cervical cancer Lupus Multiple personalities Family/Other Medical history unknown Son No problems noted. Son No problems noted. Daughter No problems noted. 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 [employer] Other Information That Helps Us Care for You: No Feels Safe at Home: Yes Safety Concerns: Feels Safe At This Time Smoking Status: Former smoker Tobacco Type: cigarettes ; Age Started Using Tobacco: 16 ; Age Quit Using Tobacco: 39 ; packs per day: 0.5 ; Cigarettes Per Day: 1/2 PPD x 15 yrs when she smoked; ; Do You Dip or Chew Tobacco: No ; Smoking End Date: 1988 ; Second Hand Exposure: No ; Tobacco Cessation Education Requested by Patient: No Hx Alcohol Use: No Hx Substance Use: No caffeine: Yes (1 cup/day) during the past year weight has: remained stable Dental Care, Regularly: Yes Physical Activity Frequency: 3-4 Times per Week Seatbelt Use: always Review of Systems Review of Systems: Constitutional- no fever or chills. Eyes- no acute visual changes ENT- no sinus drainage; no pharyngitis Pulmonary- no cough, no wheezing, no shortness of breath Cardiac- no chest pain, no palpitations, no orthopnea, no dependent edema GI- As in HPI - As in HPI Musculoskeletal- no arthralgias, no myalgias Derm- As in HPI Hematologic- no unusual bruising, no unusual bleeding Lymphatics- no adenopathy Endocrine- no polyuria or polydipsia; no heat or cold intolerance Neuro- no headaches, no focal neurologic symptoms Psych- no anxiety, no depression Physical Exam Physical Exam: General- adult female, NAD Head- atraumatic Eyes- PERRL, EOMI, anicteric ENT- oropharynx clear Neck- supple, no JVD, no adenopathy, no thyromegaly. Lungs- CTA b/l no r/r/w Heart- regular rhythm; no murmur, no gallop, no rub appreciated Abdomen- normal bowel sounds, soft, + tenderness to palpation over epigastric region and to the right upper quadrant. Extremities- no pretibial edema, no calf tenderness; peripheral pulses intact Neuro- alert, oriented x 3; PERRL, EOMI; electrical/instrument technician II-XII grossly intact, non-focal. Skin- warm & dry, Faint lacy rash on left shoulder and chest. No blisters, Non- tender. Results & Data Vital Signs (Past 12 Hours) Vital Signs Temp Pulse Pulse Resp BP BP Pulse Ox 07/30/19 13:52 78 16 178/91 H 98 07/30/19 10:32 36.8 C 80 25 H 199/104 H 99 Laboratory Results Laboratory Results WBC 10.65 K/uL (4.8-10.8) 07/30/19 11:09 RBC 5.19 M/uL (4.2-5.4) 07/30/19 11:09 Hgb 14.2 g/dL (12.0-16.0) 07/30/19 11:09 Hct 41.7 % (37-47) 07/30/19 11:09 MCV 80.3 fL (80-100) 07/30/19 11:09 MCH 27.4 pg (25-34) 07/30/19 11:09 MCHC 34.1 g/dL (32-36) 07/30/19 11:09 RDW Std Deviation 48.9 fL (36.4-46.3) H 07/30/19 11:09 RDW Coeff of Ebony 16.7 % (11.5-14.5) H 07/30/19 11:09 Plt Count 235 K/uL (130-400) 07/30/19 11:09 MPV 8.7 fL (7.4-10.4) 07/30/19 11:09 Immature Gran % (Auto) 0.2 % 07/30/19 11:09 Neut % (Auto) 70.0 % 07/30/19 11:09 Lymph % (Auto) 19.1 % 07/30/19 11:09 [place] % (Auto) 8.6 % 07/30/19 11:09 Eos % (Auto) 2.0 % 07/30/19 11:09 Baso % (Auto) 0.1 % 07/30/19 11:09 Immature Gran # (Auto) 0.02 K/uL (0.00-0.02) 07/30/19 11:09 Neut # (Auto) 7.46 K/uL (1.4-6.5) H 07/30/19 11:09 Lymph # (Auto) 2.03 K/uL (1.2-3.4) 07/30/19 11:09 [place] # (Auto) 0.92 K/uL (0.11-0.59) H 07/30/19 11:09 Eos # (Auto) 0.21 K/uL (0-0.5) 07/30/19 11:09 Baso # (Auto) 0.01 K/uL (0-0.2) 07/30/19 11:09 Sodium 143 mmol/L (136-145) 07/30/19 11:09 Potassium 3.9 mmol/L (3.5-5.1) 07/30/19 11:09 Chloride 108 mmol/L (98-107) H 07/30/19 11:09 Carbon Dioxide 31 mmol/L (21-32) 07/30/19 11:09 Anion Gap 4.0 (3-11) 07/30/19 11:09 BUN 30 mg/dl (7-18) H 07/30/19 11:09 Creatinine 1.52 mg/dl (0.6-1.2) H 07/30/19 11:09 Est Cr Clr Drug Dosing 34.5 ml/min 07/30/19 11:09 Est GFR ( Amer) 43.0 07/30/19 11:09 Est GFR (Non-Af Amer) 37.1 07/30/19 11:09 BUN/Creatinine Ratio 19.7 (10-20) 07/30/19 11:09 Glucose 96 mg/dl (70-99) 07/30/19 11:09 Calcium 10.3 mg/dl (8.5-10.1) H 07/30/19 11:09 Total Bilirubin 0.4 mg/dl (0.2-1) 07/30/19 11:09 AST 30 U/L (15-37) 07/30/19 11:09 ALT 32 U/L (12-78) 07/30/19 11:09 Alkaline Phosphatase 72 U/L (45-117) 07/30/19 11:09 Troponin I < 0.015 ng/ml (0-0.045) 07/30/19 11:09 Total Protein 7.7 gm/dl (6.4-8.2) 07/30/19 11:09 Albumin 3.5 gm/dl (3.4-5.0) 07/30/19 11:09 Globulin 4.2 gm/dl (2.5-4.0) H 07/30/19 11:09 Albumin/Globulin Ratio 0.8 (0.9-2) L 07/30/19 11:09 Lipase 281 U/L (73-393) 07/30/19 11:09 Diagnostic Findings [facility] [place], [place] [phone] CT Scan Report Patient: PETER LEBLANC Date: 07/30/19 MR#: [id number]: Aleyda BARRAZA RD Acct ID:[id number]: Date: 1960City Zip: [place] [address] Age: 59Location: ED Sex: F Room/Bed: Att Phy:Diagnosis: ITCHY BLOTCHING ON CHEST & STOMACH PAIN - HIGH BP Lidia Phy: Carloz Infante, DOService Date: 07/30/19 Fam Phy:Interpreting Phy: Irving Layton MD Admit Phy: Ordering Phy: Hermann Bourgeois D.O. cc: ~ CT abd pelvis IV con only CLINICAL HISTORY: 59 years-old Female presenting with epigastric and upper abdominal pain after chemo 4 days ago. TECHNIQUE: Multidetector CT of the abdomen and pelvis was performed after the administration of intravenous contrast. IV contrast: 93 mL of Optiray 320. One or more dose lowering techniques were used consistent with the principles of ALARA (as low as reasonably achievable), including automatic exposure control, mA or kV adjustment to individual patient size, and/or use of iterative reconstruction. COMPARISON: 06/20/2019. CT DOSE (mGy.cm): The estimated cumulative dose is 409.04 mGy.cm. FINDINGS: Transit Planning Director topogram: Surgical clips project over the right upper quadrant and right mid abdomen. Lung bases: Normal heart size. No pericardial or pleural effusion. Minimal dependent changes likely atelectasis. Liver: Normal morphology. Redemonstration of several hepatic lesions, which measure up to 10 mm. There is question of a new lesion in segment 8 (series 3 image 41). Additional lesions may also be new or better visualized on the current exam. Patent hepatic vasculature. Biliary: No intrahepatic or extrahepatic biliary ductal dilatation. There is peribiliary infiltrative change along the common duct. There may also be biliary wall enhancement and thickening. Normal gallbladder. Pancreas: Normal. Spleen: Normal. Splenule noted. Adrenal glands: Normal. Kidneys and ureters: Status post right nephrectomy. Traumatic interval decrease in size of the prior soft tissue nodule along the right psoas with a punctate residual nodule (series 3 image 224). The left kidney is normal apart from a nonobstructing 4 mm calculus at the lower pole. Cyst or calyceal diverticulum noted in the interpolar region of the left kidney. No hydronephrosis. Left ureter nondistended. Bladder: Normal. Pelvic organs: Uterus and ovaries normal. Bowel: A few diverticula noted in the sigmoid colon. No bowel wall thickening or pericolonic inflammatory change. The appendix is normal. No bowel obstruction. Peritoneal cavity: No free fluid or intraperitoneal gas. Lymph nodes: No enlarged lymph nodes in the abdomen or pelvis. Vasculature: Aorta and IVC patent and normal in caliber. Abdominal wall: Normal. Musculoskeletal: No destructive osseous lesion. IMPRESSION: 1. Peribiliary inflammatory change with biliary wall thickening and enhancement. This is suspicious for ascending cholangitis. 2. Several hepatic lesions may be new from the prior exam raising concern for progression of disease. Remaining lesions are grossly stable. 3. Traumatic interval decrease in size of the metastatic deposit along the right psoas in the right nephrectomy bed. 4. Left nephrolithiasis. Electronically signed by: Irving Layton M.D. 07/30/2019 12:05 PM Dictated: 07/30/19 1156 Transcribed: 07/30/19 1156 Code Status & VTE Plan VTE Prophylaxis Plan VTE Prophylaxis will be ordered: Yes PG Care Time/CCT Total # of Minutes Spent Total Time Spent: 60 Total Time Spent with Patient: Total time spent is greater than 50% in coordination of care (as documented) at patient's floor/unit and/or counseling patient:
[2019-07-30] MEDS ORDERED: HydrALAZINE HCL 20 MG/ML VIAL IV PRN (15:34)
[2019-07-30] MEDS ORDERED: DiphenhydrAMINE HCL 50 MG/ML VIAL IV PRN (15:34)
[2019-07-30] MEDS: D5W AND 1/2NSS 1,000 ML IV SCH ×2 (16:59→23:49)
--- NOTE | 2019-07-30 17:01 | Magnetic Resonance Report ---
MR MRCP CLINICAL HISTORY: 59 years-old Female presenting with Cholangitis mid abdominal pain, intermittently radiating to the back, vomiting yesterday. TECHNIQUE: Multisequence, multiplanar MR imaging of the abdomen was performed without the use of intr avenous contrast. Dedicated MRCP protocol was utilized. 3-D volumetric and/or maximum intensity proje ction (MIP) images were subsequently reconstructed for review. IV contrast: None. COMPARISON: CT performed earlier today. FINDINGS: Localizer images: Unremarkable. Lung bases: Normal heart size. No pericardial or pleural effusion. Lung base clear. Liver: Normal morphology. Underlying hepatic lesions not appreciated on this exam. Flow related enhan cement preserved within the portal vein and hepatic veins. Biliary: Biliary wall thickening. No biliary ductal dilatation. The posterior right hepatic duct may insert on the left hepatic duct prior to the confluence with the right anterior hepatic duct. Normal gallbladder apart from trace pericholecystic fluid at the gallbladder neck. Pancreas: Normal noncontrast appearance. No pancreatic ductal dilatation or anomaly. Spleen: Normal noncontrast appearance. Adrenal glands: Normal noncontrast appearance. Kidneys and ureters: Right nephrectomy. Left renal cysts noted. Mild perinephric fat infiltration or fluid, nonspecific. No left hydronephrosis Bowel: Normal noncontrast appearance. No bowel obstruction. Peritoneal cavity: No free fluid. Lymph nodes: No gross lymphadenopathy allowing for noncontrast technique. Vasculature: Normal noncontrast appearance. Abdominal wall: Normal. Musculoskeletal: Normal. IMPRESSION: 1. No cholelithiasis or biliary duct dilatation. Biliary ductal wall thickening is again suggested. Correlate clinically for ascending cholangitis. 2. Trace pericholecystic fluid at the gallbladder neck likely relates to the presumed cholangitis. N o convincing evidence of cholecystitis. 3. Underlying hepatic lesions not appreciated on this noncontrast, nondedicated exam. Electronically signed by: Irving Layton M.D. 07/30/2019 5:00 PM
[2019-07-30 17:51] LABS: Appearance Urine Clear (Clear); Bilirubin Urine Negative (Negative); Blood Urine 1+ (Negative); Color Urine Yellow; Glucose Urine UA Negative (Negative); Ketones Urine Negative (Negative); Leukocyte Esterase Urine Trace (Negative); Nitrite Urine Negative (Negative); Protein Urine Negative (Negative); Specific Gravity Urine <= 1.005 (1.000-1.030); Urobilinogen Urine Negative (Negative)
[2019-07-30] MEDS: PIPERACILLIN/TAZOBACTAM 3.375 GM in DEXTROSE 5% 100 ML IV SCH (18:10)
[2019-07-30 18:17] LABS: Bacteria Urine Negative (Negative); RBC Urine 0-4 /hpf (0-4); Renal Epithelial Cells Urine 0-5 /lpf (0-5)
[2019-07-30] MEDS: FAMOTIDINE 20 MG in SYRINGE 3 ML IV SCH (20:31)
[2019-07-30] MEDS: HEPARIN SOD 5,000 UNIT/0.5 ML VIAL SQ SCH (20:31)
[2019-07-30] MEDS ORDERED: PIPERACILLIN/TAZOBACTAM 3.375 GM in DEXTROSE 5% 100 ML IV SCH (21:00)
[2019-07-31] MEDS: PIPERACILLIN/TAZOBACTAM 3.375 GM in DEXTROSE 5% 100 ML IV SCH ×2 (02:07→09:25)
[2019-07-31] MEDS: HEPARIN SOD 5,000 UNIT/0.5 ML VIAL SQ SCH ×3 (06:14→21:12)
[2019-07-31] MEDS: D5W AND 1/2NSS 1,000 ML IV SCH ×3 (06:16→18:33)
[2019-07-31 06:47] LABS: Hematocrit (blood only) 37.4 % (37-47); Hemoglobin 12.5 g/dL (12.0-16.0); Mean Corpuscular Hgb Conc 33.4 g/dL (32-36); Mean Corpuscular Volume 80.8 fL (80-100); Mean Platelet Volume 8.9 fL (7.4-10.4); Platelet Count 187 K/uL (130-400); RDW Standard Deviation 49.9 fL (36.4-46.3); Red Blood Count 4.63 M/uL (4.2-5.4)
[2019-07-31 07:39] LABS: Albumin Globulin Ratio 0.8 (0.9-2); Albumin Level 2.8 gm/dl (3.4-5.0); BUN Creatinine Ratio 14.1 (10-20); Bilirubin Direct 0.1 mg/dl (0-0.2); Bilirubin,Total 0.8 mg/dl (0.2-1); Calcium 8.5 mg/dl (8.5-10.1); Creatinine Clr Calc Pharmacy 33.4 ml/min; Est GFR (African American) 41.4; Est GFR (Non-African American) 35.7; Globulin 3.4 gm/dl (2.5-4.0); Potassium 3.6 mmol/L (3.5-5.1); Total Protein 6.2 gm/dl (6.4-8.2)
[2019-07-31] MEDS: FAMOTIDINE 20 MG in SYRINGE 3 ML IV SCH (09:25)
--- NOTE | 2019-07-31 16:41 | Hospitalist Progress Note ---
Date of Service July 31, 2019 Assessment & Plan (1) Epigastric abdominal pain: Patient is a 59 year old female with PMHx Metastatic Renal Cell Carcinoma with chemo & radiation treatments, presenting initially for complaints of abdominal pain and rash. Epigastric abdominal pain -Initial concern for Ascending Cholangitis from CT and MRCP impressions -GI Consulted, appreciate recs -Notes Ascending Cholangitis unlikely since patient has no elevated white count or fever and has normal liver and lipase tests. -Believes it is secondary to patients chemotherapy. -Recommend advancing diet to clear liquids tonight, full diet in AM, DC if patient tolerates full. -Recommend Benedryl prior to next chemo infusion. -IV Zosyn started initially for empiric treatment of Ascending Cholangitis - discontinued. -Pepcid IV, Zofran PRN for nausea control -Pain control with Ketolorac, Morphine Metastatic Renal Cell Carcinoma -Undergoing chemotherapy - last treatment 5 days prior -Completed 5 radiation treatments -S/P Right nephrectomy 04/03 -Continue Axitinib BID with Zofran 8mg BID Rash -Improved with dose of Benadryl in the ED -Currently without rash. -will monitor. THAO -Suspect due to decreased po intake and vomiting. -Fluids d/c since patient is taking PO -BMP in AM. HTN -Hold lisinopril/HCTZ, consider restart in the AM. -PRN IV Hydralazine. FEN/GI - Clear liquids, advance to full in AM Code - Full DVT - Heparin Dispo - PCU w/ Tele - Plan for DC in AM if able to tolerate full diet. (2) Metastatic renal cell carcinoma: (3) Rash: (4) Acute kidney injury: (5) HTN (hypertension): Supervising Physician Co-Signing Physician Notes Resident Physician Supervision Note: I independently interviewed and examined the patient and verified the flores history and physical, reviewed labs and image studies, discussed the case with the resident Dr. Rogel and agree with the findings and care plan. Subjective Patient seen at the bedside this morning. Patient stated that she was feeling much better today and that her epigastric pain and nausea had significantly improved. She notes that her epigastric pain is a 2/10 this morning and that it does not radiate. She also notes the rash that she came in with last night has resolved. She states that she last had chemotherapy 5 days ago and that she had finished her radiation therapy last week. Review of Systems Constitutional: no fever, no chills, no sweats, no body aches, no fatigue and no weakness Eyes: no eye pain Ear, Nose, Mouth, Throat: no dizziness Respiratory: no cough, no dyspnea and no dyspnea on exertion Cardiovascular: no chest pain, no dyspnea, no dyspnea on exertion, no palpitations, no lightheadedness and no calf pain Gastrointestinal: + abdominal pain (2/10 epigastric pain ); no bloating, no nausea, no vomiting and no constipation Genitourinary: no dysuria and no hematuria Integumentary: no rash Physical Exam Constitutional: WD/WN, vitals as above Eyes: normal visual rg by confrontation ENMT: external ear and nose normal, oropharynx normal Neck: trachea midline, no thyromegaly Respiratory: normal respiratory effort, lungs clear to auscultation Cardiovascular: RRR, no murmur, no edema Extremities: no calf tenderness and no edema Gastrointestinal (Abdomen): Inspection/Auscultation: abdomen normal to inspection and normal bowel sounds; abdomen not distended Percussion/Palpation: + abdomen tender (slight TTP epigastric region) and abdomen soft; no guarding Skin: no rashes, warm and dry Psychiatric: A+Ox3, euthymic affect Results & Data Vital Signs (Past 12 Hours) Vital Signs Temp Pulse Pulse Resp BP Pulse Ox 07/31/19 15:54 36.6 C 60 18 138/83 96 07/31/19 10:54 36.9 C 59 L 18 122/80 96 07/31/19 07:44 36.4 C L 64 18 112/70 98 07/31/19 07:00 60 Laboratory Results Abnormal lab results 07/30/19 07/31/19 07/31/19 Range/Units 17:12 06:23 06:23 RDW Std Deviation 49.9 H (36.4-46.3) fL RDW Coeff of Ebony 17.0 H (11.5-14.5) % BUN 22 H (7-18) mg/dl Creatinine 1.57 H (0.6-1.2) mg/dl Glucose 107 H (70-99) mg/dl Total Protein 6.2 L (6.4-8.2) gm/dl Albumin 2.8 L (3.4-5.0) gm/dl Albumin/Globulin Ratio 0.8 L (0.9-2) Urine Blood 1+ H (Negative) Ur Leukocyte Esterase Trace H (Negative) Urine WBC 5-10 H (0-5) /hpf Ur Epithelial Cells 10-20 H (0-5) /lpf Medications Administered Current Inpatient Medications Axitinib (Inlyta) 5 ea PO 0700,1900 [facility] Stop: 08/30/19 18:59 Diphenhydramine HCl (Benadryl) 25 mg IV Q4H PRN PRN Reason: Itching Stop: 08/29/19 15:33 Heparin Sodium (Porcine) (Heparin Sodium (Porcine)) 5,000 units SQ Q8 [facility] Stop: 08/29/19 21:59 Last Admin: 07/31/19 14:25 Dose: 5,000 units Documented by: Hydralazine HCl (Hydralazine Hcl) 10 mg IV Q4H PRN PRN Reason: Systolic BP > 160 or diastolic >95 Stop: 08/29/19 15:33 Dextrose/Sodium Chloride (D5w And 1/2nss) 1,000 mls @ 150 mls/hr IV .Q6H40M [facility] Stop: 08/29/19 15:33 Last Admin: 07/31/19 12:55 Dose: 150 mls/hr Documented by: Famotidine 20 mg/ Syringe 5 mls @ 2.5 mls/min IV DAILY [facility] Stop: 08/29/19 20:59 Ketorolac Tromethamine (Toradol) 15 mg IV Q6H PRN PRN Reason: Mild pain/fever Stop: 08/04/19 14:22 Last Admin: 07/30/19 16:59 Dose: 15 mg Documented by: Morphine Sulfate (Morphine Sulfate) 2 mg IV Q3H PRN PRN Reason: Moderate Pain Stop: 08/13/19 14:22 Morphine Sulfate (Morphine Sulfate) 4 mg IV Q4H PRN PRN Reason: Severe Pain Stop: 08/13/19 14:22 Ondansetron HCl (Zofran) 4 mg IV Q4H PRN PRN Reason: nausea or vomiting Stop: 08/29/19 14:22 Ondansetron HCl (Zofran Odt) 8 mg PO 0700,1900 [facility] Stop: 08/30/19 18:59
--- NOTE | 2019-07-31 16:44 | Consultation Report ---
DATE OF CONSULTATION: 07/31/2019 REASON FOR EVALUATION: Epigastric and chest pain and possible cholangitis. HISTORY OF PRESENT ILLNESS: The patient is a 59-year-old who was diagnosed with a renal cell carcinoma of the right kidney status post right nephrectomy in 03/2019. The patient was also found to have metastatic disease to the vaginal area and has received 5 radiation therapy treatments. She is currently on a Keytruda IV and also takes an oral medication in the form of chemotherapy twice a day. Her last infusion of Keytruda was 5 days ago, she presented to the hospital 2 days ago with a full sensation in the epigastric and chest area like a bowling ball sensation. She had vomited twice at home. She also developed a splotchy red rash across her chest and upper arms that resolved with Benadryl. Since being hospitalized, she had a CAT scan of the abdomen that showed some thickening of the bile duct, raising the possibility of ascending cholangitis. The patient does not have an elevated white count, does not have a fever. Her liver tests and lipase are normal, pretty much ruling out ascending cholangitis. PAST MEDICAL HISTORY: Remarkable for carpal tunnel surgery, foot surgery, wrist surgery, ulnar entrapment surgery in the right elbow. She has had a right nephrectomy for renal cell cancer metastatic to the vaginal area. She has osteoporosis, chronic kidney disease, asthma. MEDICATIONS: Per list. ALLERGIES: DILAUDID. FAMILY HISTORY: Mother of diabetes, hypertension and stroke. Father; unknown family history of the father. She has 2 sons and a daughter, all healthy. REVIEW OF SYSTEMS: Currently negative for 12 systems. SOCIAL HISTORY: The patient is . 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 Former smoker, drinks alcohol rarely. PHYSICAL EXAMINATION: GENERAL: The patient is sitting in bed, writing Rita cards in no acute distress. VITAL SIGNS: Normal. She is afebrile. ABDOMEN: Shows a right lower quadrant scar and a drain scar. There are no masses, tenderness, or hepatosplenomegaly. Villar sign is negative. IMPRESSION: The patient has epigastric pain, probably reaction to her chemotherapy as there was a rash associated with it that resolved with Benadryl. Her white count, liver tests, lipase are all normal. CAT scan was really nondiagnostic. I really do not think she has cholangitis. There are no gallstones. I think we can advance her diet to a full liquid diet at this point and a solid diet tomorrow, if she tolerates it and if she does well, she can probably go home tomorrow. I would recommend that she get Benadryl prior to her next chemo infusion as I suspect that her reaction that required hospitalization was from her chemo.
[2019-07-31] MEDS: ONDANSETRON 8MG OD TAB PO SCH (18:52)
[2019-07-31] MEDS: INLYTA 5 MG PO SCH (18:52)
[2019-08-01] MEDS: HEPARIN SOD 5,000 UNIT/0.5 ML VIAL SQ SCH (06:11)
[2019-08-01] MEDS: ONDANSETRON 8MG OD TAB PO SCH (06:46)
[2019-08-01] MEDS: INLYTA 5 MG PO SCH (06:47)
[2019-08-01 06:51] LABS: Hematocrit (blood only) 38.3 % (37-47); Hemoglobin 12.6 g/dL (12.0-16.0); Mean Corpuscular Hemoglobin 26.5 pg (25-34); Mean Corpuscular Hgb Conc 32.9 g/dL (32-36); Mean Corpuscular Volume 80.6 fL (80-100); Platelet Count 186 K/uL (130-400); RDW Coefficient of Variation 16.9 % (11.5-14.5); RDW Standard Deviation 49.6 fL (36.4-46.3); Red Blood Count 4.75 M/uL (4.2-5.4); White Blood Count 5.18 K/uL (4.8-10.8)
[2019-08-01 07:21] LABS: BUN Creatinine Ratio 9.4 (10-20); Calcium 8.8 mg/dl (8.5-10.1); Creatinine Clr Calc Pharmacy 39.8 ml/min; Est GFR (African American) 51.5; Est GFR (Non-African American) 44.5; Potassium 4.3 mmol/L (3.5-5.1)
[2019-08-01 07:52] VITALS: PULSE 65; TEMP 97.9; O2SAT 99
[2019-08-01] MEDS ORDERED: FAMOTIDINE 20 MG in SYRINGE 3 ML IV SCH (09:00)
--- NOTE | 2019-08-01 09:58 | Discharge Summary ---
Date of Service August 01, 2019 Admission HPI Per Admitting Provider 59 y/o female presented to the ED with 2 complaints. 1) She developed a pruritic rash on her chest, breasts, and b/l arms this am. She is being treated for with chemotherapy for metastatic renal cell CA. She reports that she had the second infusion 4 days prior. She has also completed 5 rounds of radiation for a mass on vaginal wall. 2) She developed abdominal pain yesterday that she describes as a "bowling ball" sensation in the epigastric area. She has had nausea and vomited last night. No diarrhea or constipation. Last bm was this am and reported as normal. No dysuria or hematuria. She had right nephrectomy in 04/03. Admission Exam Per Admitting Provider General- adult female, NAD Head- atraumatic Eyes- PERRL, EOMI, anicteric ENT- oropharynx clear Neck- supple, no JVD, no adenopathy, no thyromegaly. Lungs- CTA b/l no r/r/w Heart- regular rhythm; no murmur, no gallop, no rub appreciated Abdomen- normal bowel sounds, soft, + tenderness to palpation over epigastric region and to the right upper quadrant. Extremities- no pretibial edema, no calf tenderness; peripheral pulses intact Neuro- alert, oriented x 3; PERRL, EOMI; spray dry operator II-XII grossly intact, non-focal. Skin- warm & dry, Faint lacy rash on left shoulder and chest. No blisters, Non- tender. Principal Diagnosis Epigastric pain secondary to chemotherapy Discharge Exam Constitutional WD/WN, vitals as above Eyes normal visual rg by confrontation ENMT external ear and nose normal, oropharynx normal Neck trachea midline, no thyromegaly Respiratory normal respiratory effort, lungs clear to auscultation Cardiovascular RRR, no murmur, no edema Extremities: no calf tenderness and no edema Gastrointestinal (Abdomen) Inspection/Auscultation: abdomen normal to inspection and normal bowel sounds; abdomen not distended Percussion/Palpation: abdomen soft; abdomen nontender and no guarding Skin no rashes, warm and dry Psychiatric A+Ox3, euthymic affect Discharge Data Allergies Allergy/AdvReac Type Severity Reaction Status Date / Time hydromorphone [From Dilaudid] AdvReac Intermediate N/V Verified 07/30/19 11:28 Consultations 07/30/19 13:08 ED Decision to Admit Stat 07/30/19 15:34 Consult Gastroenterology Routine Ordered Studies 07/30/19 10:54 CT abd pelvis IV con only Stat 07/30/19 15:34 MR MRCP Routine Hospital Course (1) Epigastric abdominal pain: Patient is a 59 year old female with PMHx Metastatic Renal Cell Carcinoma with chemo & radiation treatments, presenting initially for complaints of abdominal pain and rash. Epigastric abdominal pain secondary to chemotherapy side effect -Initial concern for Ascending Cholangitis from CT and MRCP impressions -GI Consulted, appreciate recs -Notes Ascending Cholangitis unlikely since patient has no elevated white count or fever and has normal liver and lipase tests. -Believes it is secondary to patients chemotherapy. -Recommend advancing diet to clear liquids tonight, full diet in AM, DC if patient tolerates full. -Recommend Benedryl prior to next chemo infusion. -IV Zosyn started initially for empiric treatment of Ascending Cholangitis - discontinued. -Pain and nausea resolved. -Patient tolerated full diet. Metastatic Renal Cell Carcinoma -Undergoing chemotherapy - last treatment 6 days prior -Completed 5 radiation treatments -S/P Right nephrectomy 04/03 -Continued Axitinib BID with Zofran 8mg BID Rash -Improved with dose of Benadryl in the ED -Rash resolved THAO -Suspect due to decreased po intake and vomiting. -Fluids d/c since patient is taking PO -Creatinine improved to 1.31 from 1.52 on admission. HTN -Held lisinopril/HCTZ. resumed on discharge FEN/GI - Full diet Code - Full DVT - Heparin while inpatient Dispo - Patient DC Home (2) Metastatic renal cell carcinoma: (3) Rash: (4) Acute kidney injury: (5) HTN (hypertension): Total Time Total Time Spent Total Time Spent (In Minutes): see attending attestation Discharge Plan Discharge Items Patient Disposition: Home - Self-Care Reason For Visit: CHOLANGITIS Discharge Diagnosis: Epigastric pain, likely secondary to chemotherapy reaction Condition on Discharge: Good Activity: Per Instructions section Non-emergency contact: Primary Care Provider Call non-emergency contact if: you have any medication questions and your symptoms worsen Follow-up/Referrals: Carloz Infante DO [Primary Care Provider] - Diet: Regular Addtl Attending Provider Instructions: kika Minor were evaluated and treated at [facility] from the dates of 07/30/19 - 08/01/19 for epigastric pain and rash. You had noted that you had been having nausea and vomiting for the previous 3 days upon admission. You were given Benadryl in the ED which resolved your rash, and your nausea and epigastric pain was controlled with medications as well. Imaging showed that you may have had an infection of your bile duct, but further lab work and evaluation by our Certified Mortician ruled that out. We feel that your symptoms more likely came from the recent treatment of chemotherapy that you had received for your metastatic renal cell carcinoma. Our Certified Mortician recommended that you take Benadryl prior to your next chemotherapy appointment, as that may help prevent both the epigastric pain and rash from recurring. You are being discharged after tolerating a regular diet home. Please follow up with your PCP within the next week. Please continue your home medications as prescribed. If you have any questions or concerns, please contact us at the hospital, your PCP, or return to the ED for further evaluation. Pending Studies at Discharge: No Stand-Alone Forms: My [facility] [employer], Work/School Release (Inpt), Smoking Cessation Medications and DC Order Prescriptions: Continued ondansetron HCl [Zofran] 4 mg tablet 4 mg PO Q8H PRN (Reason: Nausea) RF: 0 Keytruda 25 mg/mL solution 2 mg/kg IV UD RF: 0 Inlyta 1 mg tablet 5 mg PO Q12H RF: 0 ferrous sulfate [Iron (ferrous sulfate)] 325 mg (65 mg iron) tablet 325 mg PO DAILY Qty: 30 RF: 0 lisinopril-hydrochlorothiazide 20-12.5 mg tablet 0.5 tab PO QAM Qty: 30 RF: 0 multivitamin tablet 1 tab PO DAILY RF: 0 calcium carbonate [Calci-Chew] 500 mg calcium (1,250 mg) tablet,chewable 500 mg PO DAILY RF: 0 Prolia 60 mg/mL syringe 60 mg subcut UD RF: 0 Discharge Orders: Discharge Order (Routine); Ordered 08/01/19 Ordered By: Tay Rogel Admission Data Admit Date/Time: 07/30/19 15:23 Attending Provider: Daniela Martin Admit Provider: Francisco Javier David Primary Care Provider: Carloz Infante Other Providers: Francisco Javier David ; Jonas Salazar Other Interventions: Discharge Summary Assessment (RN) Last Done: 08/01/19 11:56 DC Date/Time DO NOT enter until pt leaves facility: 08/01/19 13:15 Supervising Physician Co-Signing Physician Notes Resident Physician Supervision Note: I independently interviewed and examined the patient and verified the flores history and physical, reviewed labs and image studies, discussed the case with the resident Dr. Rogel and agree with the findings and care plan.
[2019-08-01 11:58] VITALS: BP 109/72
== END 2019-08-01 13:15 | disposition home or self-care (01) | DRG 445 ==
LOC: ED 10:23 → 2S 14:50 → SUATTDRO 15:23

== ENCOUNTER 2021-09-26 17:14 | Inpatient (IN) ==
[2021-09-26] MEDS ORDERED: SODIUM CHLORIDE 0.9% 500 ML IV SCH (17:45)
--- NOTE | 2021-09-26 18:02 | XRay Report ---
XR chest 1V portable CLINICAL HISTORY: weakness TECHNIQUE: Single frontal radiograph of the chest was obtained. Comparison: None available at the time of this dictation. FINDINGS: No lines and tubes are seen. Calcified aortic knob is seen. The lungs are clear. No evidence of pleur al effusion or pneumothorax. IMPRESSION: No acute chest disease. ACT 112: Negative or not required by law. Electronically signed by: Kyaw Avila M.D. 09/26/2021 6:01 PM
[2021-09-26] MEDS ORDERED: SODIUM CHLORIDE 0.9% 1000ML 1,000 ML IV ONE (18:03)
[2021-09-26] MEDS ORDERED: ONDANSETRON INJ 2 MG/ML 2 ML VIAL IV STA (18:03)
[2021-09-26 18:24] LABS: Basophils # (auto) 0.02 K/uL (0-0.2); Basophils % (auto) 0.2 %; Eosinophils # (auto) 0.38 K/uL (0-0.5); Eosinophils % (auto) 4.1 %; Hematocrit (blood only) 45.2 % (37-47); Hemoglobin 15.5 g/dL (12.0-16.0); Immature Granulocytes # (auto) 0.01 K/uL (0.00-0.02); Immature Granulocytes % (auto) 0.1 %; Lymphocytes # (auto) 3.26 K/uL (1.2-3.4); Lymphocytes % (auto) 34.8 %; Mean Corpuscular Hemoglobin 28.3 pg (25-34); Mean Corpuscular Hgb Conc 34.3 g/dL (32-36); Mean Corpuscular Volume 82.6 fL (80-100); Mean Platelet Volume 9.3 fL (7.4-10.4); Monocytes # (auto) 0.74 K/uL (0.11-0.59); Monocytes % (auto) 7.9 %; Neutrophils # (auto) 4.97 K/uL (1.4-6.5); Neutrophils % (auto) 52.9 %; Platelet Count 348 K/uL (130-400); RDW Coefficient of Variation 16.1 % (11.5-14.5); RDW Standard Deviation 48.4 fL (36.4-46.3); Red Blood Count 5.47 M/uL (4.2-5.4); White Blood Count 9.38 K/uL (4.8-10.8)
[2021-09-26 18:38] LABS: INR 0.9 (0.9-1.1); Prothrombin Time 9.6 Seconds (9.0-12.0)
--- NOTE | 2021-09-26 18:52 | Emergency Department Note ---
Impression & Plan Shock, Metastatic renal cell carcinoma, Acute renal failure (ARF), Back pain ED Provider Note Provider: Eris Peguero MD DATE OF SERVICE: 09/26/2021 CHIEF COMPLAINT: Weakness HISTORY OF PRESENT ILLNESS: Patient is a 61-year-old female with a past medical history including renal cell cancer status post right nephrectomy and chemotherapy, hypothyroidism, mild CAD, and prior episode of cholangitis presenting here today via ambulance from PCPs office. Patient evidently is been following closely with them with worsening weakness. Has been increasing malaise and weakness difficulty ambulating with some shortness of breath at times decreased oral intake. Patient noted at the PCPs office to be hypotensive and requiring some oxygen. Patient states over the past 3 weeks has been having spasms and pain her back. Denies abdominal pain or chest pain. States she feels somewhat lightheaded but denies any falls. Patient reports she has been nauseous at times reports she is had little intake basically the last several days. Has been given some oxycodone which he states has not helped her back pain. Patient states she has been feeling unsteady. REVIEW OF SYSTEMS: A total of 10 review of systems was obtained and negative except as stated above in the HPI. PAST MEDICAL HISTORY: As noted above MEDICATIONS: Reviewed home medication list SOCIAL HISTORY: Former smoker PHYSICAL EXAM: GENERAL: alert and oriented in no acute distress on stretcher fatigued in appearance Head: normocephalic and atraumatic EYES: No injection, discharge or icterus. NECK: Trachea midline. Supple. ENT: Mucous membranes pink and moist. LUNGS: Airway patent. No retractions. Breath sounds clear with good air entry bilaterally. HEART: Regular rate and rhythm. No chest wall tenderness ABDOMEN: Soft and non-tender, without guarding or rebound. SKIN: Acyanotic, warm, dry, without rashes EXTREMITIES: Without swelling, tenderness or deformity NEUROLOGICAL: No focal deficits moving all extremities No aphasia. No facial droop or slurred speech. EK bpm normal sinus rhythm. No PVC or PAC. No acute ST segment elevation or depression with nonspecific T wave changes. QTc 575 CONTINUOUS CARDIAC MONITORING: was ordered and showed a heart rate of 70s-90s bpm in normal sinus rhythm Patient's laboratory studies and imaging reviewed. Differential includes Infection, dehydration, metabolic abnormality, hypo/hyperglycemia, electrolyte disturbance, anemia, hypoxia, cardiac sources, intracerebral event, toxicologic, neurologic, as well as other pathologies. IMPRESSION/MEDICAL DECISION MAKING: Reviewed prior medical records here with significant history for the patient. Blood pressure begins to improve with some IV hydration here. Question dehydration. Given her history of cancer and chemotherapy question if infection may be playing a part. Fairly benign abdomen. Not significantly hypoxic here but was hypoxic earlier. Given her complex history however will complete a CT of the chest as well as the abdomen pelvis today. Blood work returns likely with no leukocytosis or leukopenia. No anemia noted today. Lactate not elevated. Negative Covid test. Chest x-ray per radiology without findings concerning for pneumonia, pneumothorax, or pleural effusion. Procalcitonin does return elevated but greater than 4. EKG and troponin were sent. Some evidence of prolonged QTC. Troponin detectable not abnormal. Doubt this represents ACS. Significantly worse creatinine today BUN minimally elevated. Some anion gap noted. No hyperkalemia based on labs. Ammonia not elevated. Patient given additional 1.5 L lactated Ringer's after 1.5 L of normal saline. Given the persistent hypotension as well as history of some steroid he was given a dose of hydrocortisone. Will start on Levophed as her blood pressures of trended down to the 80s again. Reports that she feels some twitches and weakness in her extremities diffusely. Patient reports that she does not want dialysis would be full code otherwise. Sent for noncontrast CT of the abdomen pelvis. CT abdomen pelvis without acute pathology per the radiology report. Will defer any further PE work-up at this time as again she has been weaned to room air. Patient mentating appropriately. Question septic shock although I do not have a clear source. Has needed to escalate some of the Levophed drip. Covered with vancomycin for MRSA coverage. Discussed with the hospitalist team and patient updated at bedside. DIAGNOSIS: Weakness, acute renal failure, shock, prolonged QTC, history of renal cell cancer DISPOSITION: Hospitalist will evaluate Patient was agreeable with this plan. Critical Care I have personally spent 46 minutes of critical care time in the direct managemen t of this patient. This includes bedside care, interpretation of diagnostic studies, and testing, discussion with consultants, patient, and family members, and other required patient management activities. These 46 minutes is in excess of all separately billable procedures. Past Med/Surg History Medical History (Updated 09/26/21 @ 23:01 by ABDULKADIR Turner) Anemia Arthritis Asthma childhood; no current issues Chronic kidney disease, stage II (mild) H. pylori infection HX Hyperthyroidism Metastatic renal cell carcinoma Osteoporosis Renal cell carcinoma of right kidney 04/14/19 Dr. Vandana Infante--sx/chemo Surgical History History of carpal tunnel surgery RT/LEFT History of colonoscopy History of foot surgery RT/LEFT FOOT for bilateral bone spurs and plantar fasciaitis Right foot also had surgery for 2 hammer toes History of nephrectomy, right (~03/2019) History of surgery on wrist LEFT (BONE SPUR REMOVED) History of tooth extraction Ulnar nerve entrapment at elbow RT/LEFT ULNAR NERVE RELEASE Family History Mother , 78 yo Diabetes Osteoporosis Hypertension Stroke Sister Diabetes Osteoporosis Hypertension Stroke Brother Diabetes Hypertension Aunt Diabetes Cardiac disorder Hypertension Stroke Father Unknown family medical history Family/Other Multiple personalities Cervical cancer Lupus Uncle Diabetes Cardiac disorder Stroke Grandfather Parkinsonism Other No family history of adverse response to anesthesia Denies family history of Ovarian cancer Prostate cancer Kidney disease Myocardial infarction Breast cancer Colorectal cancer Social History Smoking Status: Never smoker Age Started Using Tobacco: 16; Age Quit Using Tobacco: 39; packs per day: 0.5; Cigarettes Per Day: 1/2 PPD x 15 yrs when she smoked;; Second Hand Exposure: No; Hx Alcohol Use: No Hx Substance Use: No Preferred Language: Yi Communication Ability: Effective Visual Impairment: No Limitations Hearing Ability: Normal Retail Account Executive Required: No Beliefs That Will Affect Care: None marital status: Current Living Situation: Spouse current occupational status: employed 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 Feels Safe at Home: Yes Childhood Exposure to Second-Hand Smoke: Yes caffeine: Yes (1 cup/day) during the past year weight has: remained stable Dental Care, Regularly: Yes Physical Activity Frequency: 3-4 Times per Week Seatbelt Use: always Sunscreen Use: Yes Assistive Devices: Glasses Allergies Allergies Allergy/AdvReac Type Severity Reaction Status Date / Time hydromorphone [From Dilaudid] AdvReac Intermediate N/V Verified 09/26/21 16:07 Home Meds Home Medications Medication Instructions Recorded Confirmed multivitamin 1 tab PO QDL 02/20/19 09/26/21 denosumab 60 mg/mL subcutaneous 60 mg SUBCUT UD 04/11/19 09/26/21 syringe (Prolia) pembrolizumab 25 mg/mL intravenous 2 mg/kg IV .EVERY 6 WEEKS ml 07/12/19 solution (Keytruda) ascorbic acid (vitamin C) 1,000 mg 1 g PO QDL 06/07/20 09/26/21 tablet (Vitamin C) cholecalciferol (vitamin D3) 25 1,000 unit PO QAM 06/07/20 09/26/21 mcg (1,000 unit) tablet (Vitamin D3) nystatin 100,000 unit/gram topical 1 applic TOPICAL BID PRN 06/07/20 09/26/21 powder potassium gluconate 595 mg (99 mg) 595 mg PO QDL 06/07/20 09/26/21 tablet axitinib 1 mg tablet (Inlyta) 2 mg PO .ON HOLD SINCE09/24/21 tab 09/17/21 09/26/21 cyclobenzaprine 10 mg tablet 10 mg PO HS PRN 09/26/21 09/26/21 ondansetron HCl 8 mg tablet 8 mg PO Q8 PRN 09/26/21 09/26/21 oxycodone 5 mg tablet 5 mg PO .EVERY 4-6 HOURS PRN 09/26/21 09/26/21 pantoprazole 40 mg tablet,delayed 40 mg PO DAILY 09/26/21 09/26/21 release Previous Rx's Medication Instructions Recorded levothyroxine 100 mcg tablet 100 mcg PO .COMPLEX 90 Days #90 tab 09/03/21 lisinopril 20 0.5 tab PO QAM #90 tab 09/03/21 mg-hydrochlorothiazide 12.5 mg tablet Results & Data (ED) Vital Signs Vital Signs - 24 hr 09/26/21 17:17 09/26/21 18:20 09/26/21 18:21 Temperature 36.4 C L Temperature Source Oral Pulse Rate 114 H 83 Pulse Rate [Apical] 83 Pulse Rate from SpO2 Sensor Pulse Rhythm Regular Pulse Strength Normal Respiratory Rate 20 19 19 Respiratory Effort / Characteristics Non-Labored Spontaneous Respiratory Depth Normal Respiratory Pattern Regular Blood Pressure 85/53 L 81/45 L Blood Pressure [Right Arm] 81/45 L Blood Pressure Mean 63 57 Blood Pressure Mean [Right Arm] 57 Blood Pressure Position Sitting Pulse Oximetry 97 98 Oxygen Delivery Method Room Air Room Air Sepsis Recent Fever Within 48 Hours No Sepsis New/Unexplained Change in Mental Status No Sepsis Action Taken by Nursing No Action Required 09/26/21 18:30 09/26/21 18:31 09/26/21 18:40 Temperature Temperature Source Pulse Rate 84 84 87 Pulse Rate [Apical] Pulse Rate from SpO2 Sensor Pulse Rhythm Pulse Strength Respiratory Rate 12 11 L 15 Respiratory Effort / Characteristics Respiratory Depth Respiratory Pattern Blood Pressure 96/50 L Blood Pressure [Right Arm] Blood Pressure Mean 65 Blood Pressure Mean [Right Arm] Blood Pressure Position Pulse Oximetry Oxygen Delivery Method Sepsis Recent Fever Within 48 Hours Sepsis New/Unexplained Change in Mental Status Sepsis Action Taken by Nursing 09/26/21 18:45 09/26/21 18:49 09/26/21 18:50 Temperature Temperature Source Pulse Rate 87 83 84 Pulse Rate [Apical] Pulse Rate from SpO2 Sensor 85 Pulse Rhythm Pulse Strength Respiratory Rate 13 15 8 L Respiratory Effort / Characteristics Respiratory Depth Respiratory Pattern Blood Pressure 86/60 L Blood Pressure [Right Arm] Blood Pressure Mean 60 68 Blood Pressure Mean [Right Arm] Blood Pressure Position Pulse Oximetry 99 Oxygen Delivery Method Sepsis Recent Fever Within 48 Hours Sepsis New/Unexplained Change in Mental Status Sepsis Action Taken by Nursing 09/26/21 19:00 09/26/21 19:10 09/26/21 19:15 Temperature Temperature Source Pulse Rate 85 86 85 Pulse Rate [Apical] Pulse Rate from SpO2 Sensor 84 86 86 Pulse Rhythm Pulse Strength Respiratory Rate 18 14 12 Respiratory Effort / Characteristics Respiratory Depth Respiratory Pattern Blood Pressure 97/60 L 68/43 L Blood Pressure [Right Arm] Blood Pressure Mean 72 51 Blood Pressure Mean [Right Arm] Blood Pressure Position Pulse Oximetry 94 95 95 Oxygen Delivery Method Sepsis Recent Fever Within 48 Hours Sepsis New/Unexplained Change in Mental Status Sepsis Action Taken by Nursing 09/26/21 19:20 09/26/21 19:30 09/26/21 19:40 Temperature Temperature Source Pulse Rate 87 82 82 Pulse Rate [Apical] Pulse Rate from SpO2 Sensor 86 83 82 Pulse Rhythm Pulse Strength Respiratory Rate 21 10 L 12 Respiratory Effort / Characteristics Respiratory Depth Respiratory Pattern Blood Pressure 82/39 L 77/44 L Blood Pressure [Right Arm] Blood Pressure Mean 53 55 Blood Pressure Mean [Right Arm] Blood Pressure Position Pulse Oximetry 96 98 99 Oxygen Delivery Method Sepsis Recent Fever Within 48 Hours Sepsis New/Unexplained Change in Mental Status Sepsis Action Taken by Nursing 09/26/21 19:45 09/26/21 19:50 09/26/21 19:53 Temperature Temperature Source Pulse Rate 83 85 85 Pulse Rate [Apical] Pulse Rate from SpO2 Sensor 83 94 H 87 Pulse Rhythm Pulse Strength Respiratory Rate 11 L 19 15 Respiratory Effort / Characteristics Respiratory Depth Respiratory Pattern Blood Pressure 70/45 L 80/49 L Blood Pressure [Right Arm] Blood Pressure Mean 53 59 Blood Pressure Mean [Right Arm] Blood Pressure Position Pulse Oximetry 99 86 L 97 Oxygen Delivery Method Sepsis Recent Fever Within 48 Hours Sepsis New/Unexplained Change in Mental Status Sepsis Action Taken by Nursing 09/26/21 19:55 09/26/21 20:00 09/26/21 20:07 Temperature Temperature Source Pulse Rate 88 81 83 Pulse Rate [Apical] 81 Pulse Rate from SpO2 Sensor 87 86 84 Pulse Rhythm Pulse Strength Respiratory Rate 13 19 12 Respiratory Effort / Characteristics Respiratory Depth Respiratory Pattern Blood Pressure 67/48 L 104/57 L 95/48 L Blood Pressure [Right Arm] 104/57 L Blood Pressure Mean 54 72 63 Blood Pressure Mean [Right Arm] 72 Blood Pressure Position Pulse Oximetry 97 91 96 Oxygen Delivery Method Sepsis Recent Fever Within 48 Hours Sepsis New/Unexplained Change in Mental Status Sepsis Action Taken by Nursing 09/26/21 20:10 09/26/21 20:15 09/26/21 20:38 Temperature Temperature Source Pulse Rate 82 Pulse Rate [Apical] 83 85 Pulse Rate from SpO2 Sensor 97 H Pulse Rhythm Pulse Strength Respiratory Rate 11 L 11 L 19 Respiratory Effort / Characteristics Respiratory Depth Respiratory Pattern Blood Pressure 72/48 L Blood Pressure [Right Arm] 70/53 L 81/55 L Blood Pressure Mean 56 Blood Pressure Mean [Right Arm] 58 63 Blood Pressure Position Pulse Oximetry 89 L 99 98 Oxygen Delivery Method Room Air Sepsis Recent Fever Within 48 Hours Sepsis New/Unexplained Change in Mental Status Sepsis Action Taken by Nursing 09/26/21 20:44 09/26/21 21:25 09/26/21 22:04 Temperature Temperature Source Pulse Rate Pulse Rate [Apical] 86 88 85 Pulse Rate from SpO2 Sensor Pulse Rhythm Pulse Strength Respiratory Rate 15 13 11 L Respiratory Effort / Characteristics Respiratory Depth Respiratory Pattern Blood Pressure Blood Pressure [Right Arm] 95/69 L 107/65 97/72 L Blood Pressure Mean Blood Pressure Mean [Right Arm] 77 79 80 Blood Pressure Position Pulse Oximetry 100 97 97 Oxygen Delivery Method Sepsis Recent Fever Within 48 Hours Sepsis New/Unexplained Change in Mental Status Sepsis Action Taken by Nursing 09/26/21 22:06 Temperature Temperature Source Pulse Rate Pulse Rate [Apical] 87 Pulse Rate from SpO2 Sensor Pulse Rhythm Pulse Strength Respiratory Rate 12 Respiratory Effort / Characteristics Respiratory Depth Respiratory Pattern Blood Pressure Blood Pressure [Right Arm] 97/72 L Blood Pressure Mean Blood Pressure Mean [Right Arm] 80 Blood Pressure Position Pulse Oximetry 98 Oxygen Delivery Method Room Air Sepsis Recent Fever Within 48 Hours Sepsis New/Unexplained Change in Mental Status Sepsis Action Taken by Nursing Laboratory Data Result diagrams: 09/26/21 18:05 09/26/21 18:05 Lab Results 09/26/21 09/26/21 09/26/21 Range/Units 18:05 18:05 18:05 WBC 9.38 (4.8-10.8) K/uL RBC 5.47 H (4.2-5.4) M/uL Hgb 15.5 (12.0-16.0) g/dL Hct 45.2 (37-47) % MCV 82.6 (80-100) fL MCH 28.3 (25-34) pg MCHC 34.3 (32-36) g/dL RDW Std Deviation 48.4 H (36.4-46.3) fL RDW Coeff of Ebony 16.1 H (11.5-14.5) % Plt Count 348 (130-400) K/uL MPV 9.3 (7.4-10.4) fL Immature Gran % (Auto) 0.1 % Neut % (Auto) 52.9 % Lymph % (Auto) 34.8 % [place] % (Auto) 7.9 % Eos % (Auto) 4.1 % Baso % (Auto) 0.2 % Neut # (Auto) 4.97 (1.4-6.5) K/uL Lymph # (Auto) 3.26 (1.2-3.4) K/uL [place] # (Auto) 0.74 H (0.11-0.59) K/uL Eos # (Auto) 0.38 (0-0.5) K/uL Baso # (Auto) 0.02 (0-0.2) K/uL Immature Gran # (Auto) 0.01 (0.00-0.02) K/uL PT (9.0-12.0) Seconds INR (0.9-1.1) VBG pH (7.36-7.41) VBG pCO2 (38-50) mmHg VBG pO2 mmHg VBG HCO3 mmol/L VBG O2 Saturation % VBG Base Excess mEq/L Barometric Pressure mm/Hg Sodium 133 L (136-145) mmol/L Potassium 3.8 (3.5-5.1) mmol/L Chloride 97 L (98-107) mmol/L Carbon Dioxide 19 L (21-32) mmol/L Anion Gap 17 H (3-11) BUN 27 H (6-23) mg/dl Creatinine 3.86 H (0.6-1.2) mg/dl Est Cr Clr Drug Dosing Not Reportable Est GFR ( Amer) 13.8 ml/min Est GFR (Non-Af Amer) 11.9 ml/min BUN/Creatinine Ratio 7.0 L (10-20) Glucose 91 (70-99(Fasting)) mg/dl Lactate (0.4-2.0) mmol/L Calcium 9.8 (8.5-10.1) mg/dl Magnesium 2.4 (1.7-2.4) mg/dl Total Bilirubin 0.7 (0.2-1.0) mg/dl AST 40 H (13-39) U/L ALT 26 (7-52) U/L Alkaline Phosphatase 45 (34-104) U/L Ammonia (18-72) umol/L Total Creatine Kinase (26-192) U/L Troponin I 0.04 (0-0.04) ng/ml Total Protein 6.3 (6.0-8.3) gm/dl Albumin 3.7 (3.4-5.0) gm/dl Globulin 2.6 (2.5-4.0) gm/dl Albumin/Globulin Ratio 1.4 (0.9-2) Lipase 38 (11-82) U/L Procalcitonin (0-0.5) ng/ml TSH 2.887 (0.300-4.500) uIu/ml Urine Color Urine Appearance (Clear) Urine pH (4.5-7.5) Ur Specific [place] (1.000-1.030) Urine Protein (Negative) Urine Glucose (UA) (Negative) Urine Ketones (Negative) Urine Blood (Negative) Urine Nitrite (Negative) Urine Bilirubin (Negative) Urine Urobilinogen (Negative) Ur Leukocyte Esterase (Negative) Urine WBC (Auto) (0-5) /hpf Urine RBC (Auto) (0-4) /hpf U Hyaline Cast (Auto) (0-5) /lpf U Epithel Cells (Auto) (0-5) /lpf Urine Bacteria (Auto) (Negative) Uric Acid Crystals (None Prsent) Ur Random Creatinine mg/dl Urine Sodium mmol/L Urine Potassium mmol/L Urine Chloride mmol/L SARS-CoV-2, RNA, NAAT (NEGATIVE) 09/26/21 09/26/21 09/26/21 Range/Units 18:05 18:05 18:05 WBC (4.8-10.8) K/uL RBC (4.2-5.4) M/uL Hgb (12.0-16.0) g/dL Hct (37-47) % MCV (80-100) fL MCH (25-34) pg MCHC (32-36) g/dL RDW Std Deviation (36.4-46.3) fL RDW Coeff of Ebony (11.5-14.5) % Plt Count (130-400) K/uL MPV (7.4-10.4) fL Immature Gran % (Auto) % Neut % (Auto) % Lymph % (Auto) % [place] % (Auto) % Eos % (Auto) % Baso % (Auto) % Neut # (Auto) (1.4-6.5) K/uL Lymph # (Auto) (1.2-3.4) K/uL [place] # (Auto) (0.11-0.59) K/uL Eos # (Auto) (0-0.5) K/uL Baso # (Auto) (0-0.2) K/uL Immature Gran # (Auto) (0.00-0.02) K/uL PT 9.6 (9.0-12.0) Seconds INR 0.9 (0.9-1.1) VBG pH (7.36-7.41) VBG pCO2 (38-50) mmHg VBG pO2 mmHg VBG HCO3 mmol/L VBG O2 Saturation % VBG Base Excess mEq/L Barometric Pressure mm/Hg Sodium (136-145) mmol/L Potassium (3.5-5.1) mmol/L Chloride (98-107) mmol/L Carbon Dioxide (21-32) mmol/L Anion Gap (3-11) BUN (6-23) mg/dl Creatinine (0.6-1.2) mg/dl Est Cr Clr Drug Dosing Est GFR ( Amer) ml/min Est GFR (Non-Af Amer) ml/min BUN/Creatinine Ratio (10-20) Glucose (70-99(Fasting)) mg/dl Lactate 1.8 (0.4-2.0) mmol/L Calcium (8.5-10.1) mg/dl Magnesium (1.7-2.4) mg/dl Total Bilirubin (0.2-1.0) mg/dl AST (13-39) U/L ALT (7-52) U/L Alkaline Phosphatase (34-104) U/L Ammonia (18-72) umol/L Total Creatine Kinase (26-192) U/L Troponin I (0-0.04) ng/ml Total Protein (6.0-8.3) gm/dl Albumin (3.4-5.0) gm/dl Globulin (2.5-4.0) gm/dl Albumin/Globulin Ratio (0.9-2) Lipase (11-82) U/L Procalcitonin 4.32 H (0-0.5) ng/ml TSH (0.300-4.500) uIu/ml Urine Color Urine Appearance (Clear) Urine pH (4.5-7.5) Ur Specific [place] (1.000-1.030) Urine Protein (Negative) Urine Glucose (UA) (Negative) Urine Ketones (Negative) Urine Blood (Negative) Urine Nitrite (Negative) Urine Bilirubin (Negative) Urine Urobilinogen (Negative) Ur Leukocyte Esterase (Negative) Urine WBC (Auto) (0-5) /hpf Urine RBC (Auto) (0-4) /hpf U Hyaline Cast (Auto) (0-5) /lpf U Epithel Cells (Auto) (0-5) /lpf Urine Bacteria (Auto) (Negative) Uric Acid Crystals (None Prsent) Ur Random Creatinine mg/dl Urine Sodium mmol/L Urine Potassium mmol/L Urine Chloride mmol/L SARS-CoV-2, RNA, NAAT (NEGATIVE) 09/26/21 09/26/21 09/26/21 Range/Units 18:05 18:20 19:01 WBC (4.8-10.8) K/uL RBC (4.2-5.4) M/uL Hgb (12.0-16.0) g/dL Hct (37-47) % MCV (80-100) fL MCH (25-34) pg MCHC (32-36) g/dL RDW Std Deviation (36.4-46.3) fL RDW Coeff of Ebony (11.5-14.5) % Plt Count (130-400) K/uL MPV (7.4-10.4) fL Immature Gran % (Auto) % Neut % (Auto) % Lymph % (Auto) % [place] % (Auto) % Eos % (Auto) % Baso % (Auto) % Neut # (Auto) (1.4-6.5) K/uL Lymph # (Auto) (1.2-3.4) K/uL [place] # (Auto) (0.11-0.59) K/uL Eos # (Auto) (0-0.5) K/uL Baso # (Auto) (0-0.2) K/uL Immature Gran # (Auto) (0.00-0.02) K/uL PT (9.0-12.0) Seconds INR (0.9-1.1) VBG pH (7.36-7.41) VBG pCO2 (38-50) mmHg VBG pO2 mmHg VBG HCO3 mmol/L VBG O2 Saturation % VBG Base Excess mEq/L Barometric Pressure mm/Hg Sodium (136-145) mmol/L Potassium (3.5-5.1) mmol/L Chloride (98-107) mmol/L Carbon Dioxide (21-32) mmol/L Anion Gap (3-11) BUN (6-23) mg/dl Creatinine (0.6-1.2) mg/dl Est Cr Clr Drug Dosing Est GFR ( Amer) ml/min Est GFR (Non-Af Amer) ml/min BUN/Creatinine Ratio (10-20) Glucose (70-99(Fasting)) mg/dl Lactate (0.4-2.0) mmol/L Calcium (8.5-10.1) mg/dl Magnesium (1.7-2.4) mg/dl Total Bilirubin (0.2-1.0) mg/dl AST (13-39) U/L ALT (7-52) U/L Alkaline Phosphatase (34-104) U/L Ammonia 14.0 L (18-72) umol/L Total Creatine Kinase 267 H (26-192) U/L Troponin I (0-0.04) ng/ml Total Protein (6.0-8.3) gm/dl Albumin (3.4-5.0) gm/dl Globulin (2.5-4.0) gm/dl Albumin/Globulin Ratio (0.9-2) Lipase (11-82) U/L Procalcitonin (0-0.5) ng/ml TSH (0.300-4.500) uIu/ml Urine Color Urine Appearance (Clear) Urine pH (4.5-7.5) Ur Specific [place] (1.000-1.030) Urine Protein (Negative) Urine Glucose (UA) (Negative) Urine Ketones (Negative) Urine Blood (Negative) Urine Nitrite (Negative) Urine Bilirubin (Negative) Urine Urobilinogen (Negative) Ur Leukocyte Esterase (Negative) Urine WBC (Auto) (0-5) /hpf Urine RBC (Auto) (0-4) /hpf U Hyaline Cast (Auto) (0-5) /lpf U Epithel Cells (Auto) (0-5) /lpf Urine Bacteria (Auto) (Negative) Uric Acid Crystals (None Prsent) Ur Random Creatinine mg/dl Urine Sodium mmol/L Urine Potassium mmol/L Urine Chloride mmol/L SARS-CoV-2, RNA, NAAT NEGATIVE (NEGATIVE) 09/26/21 09/26/21 09/26/21 Range/Units 19:01 22:00 22:00 WBC (4.8-10.8) K/uL RBC (4.2-5.4) M/uL Hgb (12.0-16.0) g/dL Hct (37-47) % MCV (80-100) fL MCH (25-34) pg MCHC (32-36) g/dL RDW Std Deviation (36.4-46.3) fL RDW Coeff of Ebony (11.5-14.5) % Plt Count (130-400) K/uL MPV (7.4-10.4) fL Immature Gran % (Auto) % Neut % (Auto) % Lymph % (Auto) % [place] % (Auto) % Eos % (Auto) % Baso % (Auto) % Neut # (Auto) (1.4-6.5) K/uL Lymph # (Auto) (1.2-3.4) K/uL [place] # (Auto) (0.11-0.59) K/uL Eos # (Auto) (0-0.5) K/uL Baso # (Auto) (0-0.2) K/uL Immature Gran # (Auto) (0.00-0.02) K/uL PT (9.0-12.0) Seconds INR (0.9-1.1) VBG pH 7.35 L (7.36-7.41) VBG pCO2 38 (38-50) mmHg VBG pO2 32 mmHg VBG HCO3 21 mmol/L VBG O2 Saturation < 60.0 % VBG Base Excess -4.3 mEq/L Barometric Pressure 726.1 mm/Hg Sodium (136-145) mmol/L Potassium (3.5-5.1) mmol/L Chloride (98-107) mmol/L Carbon Dioxide (21-32) mmol/L Anion Gap (3-11) BUN (6-23) mg/dl Creatinine (0.6-1.2) mg/dl Est Cr Clr Drug Dosing Est GFR ( Amer) ml/min Est GFR (Non-Af Amer) ml/min BUN/Creatinine Ratio (10-20) Glucose (70-99(Fasting)) mg/dl Lactate (0.4-2.0) mmol/L Calcium (8.5-10.1) mg/dl Magnesium (1.7-2.4) mg/dl Total Bilirubin (0.2-1.0) mg/dl AST (13-39) U/L ALT (7-52) U/L Alkaline Phosphatase (34-104) U/L Ammonia (18-72) umol/L Total Creatine Kinase (26-192) U/L Troponin I (0-0.04) ng/ml Total Protein (6.0-8.3) gm/dl Albumin (3.4-5.0) gm/dl Globulin (2.5-4.0) gm/dl Albumin/Globulin Ratio (0.9-2) Lipase (11-82) U/L Procalcitonin (0-0.5) ng/ml TSH (0.300-4.500) uIu/ml Urine Color Urine Appearance (Clear) Urine pH (4.5-7.5) Ur Specific [place] (1.000-1.030) Urine Protein (Negative) Urine Glucose (UA) (Negative) Urine Ketones (Negative) Urine Blood (Negative) Urine Nitrite (Negative) Urine Bilirubin (Negative) Urine Urobilinogen (Negative) Ur Leukocyte Esterase (Negative) Urine WBC (Auto) (0-5) /hpf Urine RBC (Auto) (0-4) /hpf U Hyaline Cast (Auto) (0-5) /lpf U Epithel Cells (Auto) (0-5) /lpf Urine Bacteria (Auto) (Negative) Uric Acid Crystals (None Prsent) Ur Random Creatinine 119.5 mg/dl Urine Sodium 36 mmol/L Urine Potassium 39.5 mmol/L Urine Chloride 34 mmol/L SARS-CoV-2, RNA, NAAT (NEGATIVE) 09/26/21 Range/Units 22:00 WBC (4.8-10.8) K/uL RBC (4.2-5.4) M/uL Hgb (12.0-16.0) g/dL Hct (37-47) % MCV (80-100) fL MCH (25-34) pg MCHC (32-36) g/dL RDW Std Deviation (36.4-46.3) fL RDW Coeff of Ebony (11.5-14.5) % Plt Count (130-400) K/uL MPV (7.4-10.4) fL Immature Gran % (Auto) % Neut % (Auto) % Lymph % (Auto) % [place] % (Auto) % Eos % (Auto) % Baso % (Auto) % Neut # (Auto) (1.4-6.5) K/uL Lymph # (Auto) (1.2-3.4) K/uL [place] # (Auto) (0.11-0.59) K/uL Eos # (Auto) (0-0.5) K/uL Baso # (Auto) (0-0.2) K/uL Immature Gran # (Auto) (0.00-0.02) K/uL PT (9.0-12.0) Seconds INR (0.9-1.1) VBG pH (7.36-7.41) VBG pCO2 (38-50) mmHg VBG pO2 mmHg VBG HCO3 mmol/L VBG O2 Saturation % VBG Base Excess mEq/L Barometric Pressure mm/Hg Sodium (136-145) mmol/L Potassium (3.5-5.1) mmol/L Chloride (98-107) mmol/L Carbon Dioxide (21-32) mmol/L Anion Gap (3-11) BUN (6-23) mg/dl Creatinine (0.6-1.2) mg/dl Est Cr Clr Drug Dosing Est GFR ( Amer) ml/min Est GFR (Non-Af Amer) ml/min BUN/Creatinine Ratio (10-20) Glucose (70-99(Fasting)) mg/dl Lactate (0.4-2.0) mmol/L Calcium (8.5-10.1) mg/dl Magnesium (1.7-2.4) mg/dl Total Bilirubin (0.2-1.0) mg/dl AST (13-39) U/L ALT (7-52) U/L Alkaline Phosphatase (34-104) U/L Ammonia (18-72) umol/L Total Creatine Kinase (26-192) U/L Troponin I (0-0.04) ng/ml Total Protein (6.0-8.3) gm/dl Albumin (3.4-5.0) gm/dl Globulin (2.5-4.0) gm/dl Albumin/Globulin Ratio (0.9-2) Lipase (11-82) U/L Procalcitonin (0-0.5) ng/ml TSH (0.300-4.500) uIu/ml Urine Color Dark Yellow Urine Appearance Clear (Clear) Urine pH 5.0 (4.5-7.5) Ur Specific [place] 1.018 (1.000-1.030) Urine Protein Trace H (Negative) Urine Glucose (UA) Negative (Negative) Urine Ketones 1+ H (Negative) Urine Blood 1+ H (Negative) Urine Nitrite Negative (Negative) Urine Bilirubin Negative (Negative) Urine Urobilinogen Negative (Negative) Ur Leukocyte Esterase Trace H (Negative) Urine WBC (Auto) 1-5 (0-5) /hpf Urine RBC (Auto) 0-4 (0-4) /hpf U Hyaline Cast (Auto) 10-30 H (0-5) /lpf U Epithel Cells (Auto) >30 H (0-5) /lpf Urine Bacteria (Auto) Negative (Negative) Uric Acid Crystals Present A (None Prsent) Ur Random Creatinine mg/dl Urine Sodium mmol/L Urine Potassium mmol/L Urine Chloride mmol/L SARS-CoV-2, RNA, NAAT (NEGATIVE) Administered Medications Norepinephrine Bitartrate (Levophed/D5w) 8 mg in 508 mls @ 38.431 mls/hr IV .[id number] [facility]; Protocol Stop: 10/26/21 19:29 Last Titration: 09/26/21 21:05 Dose: 0.11 mcg/kg/min, 38.4 mls/hr Documented by: [id number] Titration: 09/26/21 20:17 Dose: 0.09 mcg/kg/min, 31.4 mls/hr Documented by: [id number] Titration: 09/26/21 20:10 Dose: 0.07 mcg/kg/min, 24.5 mls/hr Documented by: [id number] Admin: 09/26/21 19:57 Dose: 0.05 mcg/kg/min, 17.5 mls/hr Documented by: [id number] Cosigned by: [id number] Vancomycin HCl 1,750 mg/ (Sodium Chloride) 535 mls @ 200 mls/hr IV NOW ONE Stop: 09/26/21 23:45 Last Admin: 09/26/21 21:59 Dose: 200 mls/hr Documented by: [id number] Discontinued Medications Hydrocortisone Sodium Succinate (Hydrocortisone Sod Succinate 100 Mg/2 Ml Vial) 50 mg IV NOW STA Stop: 09/26/21 19:28 Last Admin: 09/26/21 19:38 Dose: 50 mg Documented by: [id number] Hydrocortisone Sodium Succinate (Hydrocortisone Sod Succinate 100 Mg/2 Ml Vial) 100 mg IV NOW STA Stop: 09/26/21 21:06 Last Admin: 09/26/21 21:19 Dose: 100 mg Documented by: [id number] Sodium Chloride (Nss) 500 mls @ 999 mls/hr IV .Q31M AKHIL Stop: 09/26/21 18:15 Last Infusion: 09/26/21 19:12 Dose: 0 mls/hr Documented by: [id number] Admin: 09/26/21 18:18 Dose: 999 mls/hr Documented by: [id number] Sodium Chloride (Nss 1000ml) 1,000 mls @ 999 mls/hr IV .Q1H1M ONE Stop: 09/26/21 19:03 Last Infusion: 09/26/21 19:12 Dose: 0 mls/hr Documented by: [id number] Admin: 09/26/21 18:18 Dose: 999 mls/hr Documented by: [id number] Lactated Ringer's (Lr) 1,000 mls @ 999 mls/hr IV .Q1H1M ONE Stop: 09/26/21 20:27 Last Infusion: 09/26/21 21:35 Dose: 0 mls/hr Documented by: [id number] Admin: 09/26/21 19:45 Dose: 999 mls/hr Documented by: [id number] Cefepime HCl (Maxipime) 2,000 mg in 20 mls @ 5 mls/min IV NOW STA; Protocol Stop: 09/26/21 19:37 Last Admin: 09/26/21 19:39 Dose: 5 mls/min Documented by: [id number] Lactated Ringer's (Lr) 500 mls @ 999 mls/hr IV .Q31M ONE Stop: 09/26/21 21:21 Last Infusion: 09/26/21 21:47 Dose: 0 mls/hr Documented by: [id number] Admin: 09/26/21 21:16 Dose: 999 mls/hr Documented by: [id number] Ondansetron HCl (Ondansetron Inj 2 Mg/Ml 2 Ml Vial) 4 mg IV NOW STA Stop: 09/26/21 18:04 Last Admin: 09/26/21 18:18 Dose: 4 mg Documented by: [id number] Imaging Data Radiologist's Impression: Chest X-Ray 09/26/21 17:23 XR chest 1V portable CLINICAL HISTORY: weakness TECHNIQUE: Single frontal radiograph of the chest was obtained. Comparison: None available at the time of this dictation. FINDINGS: No lines and tubes are seen. Calcified aortic knob is seen. The lungs are clear. No evidence of pleural effusion or pneumothorax. IMPRESSION: No acute chest disease. ACT 112: Negative or not required by law. Electronically signed by: Kyaw Avila M.D. 09/26/2021 6:01 PM Abdomen/Pelvis CT 09/26/21 19:13 CT abd pelvis wo con CLINICAL HISTORY: back pain, vomiting, rhiannon TECHNIQUE: Helical axial images of the abdomen and pelvis were obtained. Automated dose lowering techniques and/or adjustment according to patient size were utilized for this exam. This exam was performed without intravenous contrast. COMPARISON: None available at the time of this dictation. FINDINGS: Lower chest: No acute abnormality Liver: Unremarkable. No focal lesions are seen. Gallbladder and biliary tree: No calcified gallstones. Normal caliber wall. No intra- or extrahepatic biliary ductal dilation. Pancreas: Unremarkable, no focal lesions. Spleen: Splenule is incidentally noted. Adrenals: Unremarkable. Kidneys and ureters: Status post right nephrectomy. Bladder: Limited evaluation due to underdistention. Reproductive organs: Unremarkable. Bowel: Unremarkable appearance of the bowel. The appendix is normal. Lymph nodes Retroperitoneal: Unremarkable. Mesenteric: Unremarkable. Pelvic: Unremarkable. Peritoneum: Normal. Vessels: Unremarkable. Abdominal wall: A fat-containing umbilical hernia is seen. Bones: Unremarkable. IMPRESSION: No acute abnormalities. ACT 112: Negative or not required by law. Electronically signed by: Kyaw Avila M.D. 09/26/2021 8:47 PM Discharge Plan Visit Data Chief Complaint: Weakness Stated Complaint: Weakness ED Provider: Eris Peguero Discharge Problem: Shock, Metastatic renal cell carcinoma, Acute renal failure (ARF), Back pain Patient Disposition: Being Evaluated by Hospitalist Forms Stand Alone Forms: [facility] Prescriptions Prescriptions: No Action Keytruda 25 mg/mL solution 2 mg/kg IV .EVERY 6 WEEKS RF: 0 lisinopril-hydrochlorothiazide 20-12.5 mg tablet 0.5 tab PO QAM Qty: 90 RF: 1 levothyroxine 100 mcg tablet 100 mcg PO .COMPLEX 90 Days Qty: 90 RF: 0 Inlyta 1 mg tablet 2 mg PO .ON HOLD SINCE09/24/21 RF: 0 multivitamin tablet 1 tab PO QDL RF: 0 Prolia 60 mg/mL syringe 60 mg subcut UD RF: 0 nystatin 100,000 unit/gram powder 1 applic topical BID PRN (Reason: Rash) RF: 0 ascorbic acid (vitamin C) [Vitamin C] 1,000 mg Tablet 1 g PO QDL RF: 0 cholecalciferol (vitamin D3) [Vitamin D3] 25 mcg (1,000 unit) Tablet 1,000 unit PO QAM RF: 0 potassium gluconate 595 mg (99 mg) Tablet 595 mg PO QDL RF: 0 ondansetron HCl 8 mg tablet 8 mg PO Q8 PRN (Reason: Nausea) RF: 0 oxycodone 5 mg tablet 5 mg PO .EVERY 4-6 HOURS PRN (Reason: Pain) RF: 0 pantoprazole 40 mg tablet,delayed release (DR/EC) 40 mg PO DAILY RF: 0 cyclobenzaprine 10 mg tablet 10 mg PO HS PRN (Reason: Muscle Spasm) RF: 0 Referrals Referrals: Carloz Infante DO [Primary Care Provider] - Discharge Problem: Metastatic renal cell carcinoma Qualifiers: Laterality: right Qualified Code(s): C64.1 - Malignant neoplasm of right kidney, except renal pelvis Acute renal failure (ARF) Qualifiers: Acute renal failure type: unspecified Qualified Code(s): N17.9 - Acute kidney failure, unspecified Back pain Qualifiers: Back pain location: low back pain Sciatica presence: without sciatica
[2021-09-26 19:11] LABS: Alanine Aminotransferase 26 U/L (7-52); Albumin Globulin Ratio 1.4 (0.9-2); Albumin Level 3.7 gm/dl (3.4-5.0); Alkaline Phosphatase 45 U/L (34-104); Anion Gap 17 (3-11); Aspartate Aminotransferase 40 U/L (13-39); Bilirubin,Total 0.7 mg/dl (0.2-1.0); Blood Urea Nitrogen 27 mg/dl (6-23); Calcium 9.8 mg/dl (8.5-10.1); Carbon Dioxide 19 mmol/L (21-32); Chloride 97 mmol/L (98-107); Est GFR (African American) 13.8 ml/min; Est GFR (Non-African American) 11.9 ml/min; Globulin 2.6 gm/dl (2.5-4.0); Glucose 91 mg/dl (70-99(Fasting)); Lipase 38 U/L (11-82); Magnesium 2.4 mg/dl (1.7-2.4); Potassium 3.8 mmol/L (3.5-5.1); Sodium 133 mmol/L (136-145); Total Protein 6.3 gm/dl (6.0-8.3)
[2021-09-26 19:16] LABS: Base Excess VBG -4.3 mEq/L; HCO3 VBG 21 mmol/L; Oxygen Saturation VBG < 60.0 %; PCO2 VBG 38 mmHg (38-50); PO2 VBG 32 mmHg; pH VBG 7.35 (7.36-7.41)
[2021-09-26] MEDS ORDERED: HYDROCORTISONE SOD SUCCINATE 100 MG/2 ML VIAL IV STA ×3 (19:27→22:03)
[2021-09-26] MEDS ORDERED: LACTATED RINGER'S 1,000 ML IV ONE (19:27)
[2021-09-26] MEDS ORDERED: STAT IV Infusion **Titration per Protocol STA (19:27)
[2021-09-26 19:34] LABS: Troponin I 0.04 ng/ml (0-0.04)
[2021-09-26] MEDS ORDERED: CEFEPIME 2,000 MG/20 ML VIAL IV STA (19:34)
[2021-09-26] MEDS: NOREPINEPHRINE/D5W 8 MG/508 ML BAG IV SCH (19:57)
--- NOTE | 2021-09-26 20:49 | CT Scan Report ---
CT abd pelvis wo con CLINICAL HISTORY: back pain, vomiting, rhiannon TECHNIQUE: Helical axial images of the abdomen and pelvis were obtained. Automated dose lowering tech niques and/or adjustment according to patient size were utilized for this exam. This exam was perfor med without intravenous contrast. COMPARISON: None available at the time of this dictation. FINDINGS: Lower chest: No acute abnormality Liver: Unremarkable. No focal lesions are seen. Gallbladder and biliary tree: No calcified gallstones. Normal caliber wall. No intra- or extrahepatic biliary ductal dilation. Pancreas: Unremarkable, no focal lesions. Spleen: Splenule is incidentally noted. Adrenals: Unremarkable. Kidneys and ureters: Status post right nephrectomy. Bladder: Limited evaluation due to underdistention. Reproductive organs: Unremarkable. Bowel: Unremarkable appearance of the bowel. The appendix is normal. Lymph nodes Retroperitoneal: Unremarkable. Mesenteric: Unremarkable. Pelvic: Unremarkable. Peritoneum: Normal. Vessels: Unremarkable. Abdominal wall: A fat-containing umbilical hernia is seen. Bones: Unremarkable. IMPRESSION: No acute abnormalities. ACT 112: Negative or not required by law. Electronically signed by: Kyaw Avila M.D. 09/26/2021 8:47 PM
[2021-09-26] MEDS ORDERED: LACTATED RINGER'S 500 ML IV ONE (20:51)
[2021-09-26] MEDS ORDERED: VANCOMYCIN HCL 1,750 MG in SODIUM CHLORIDE 0.9% 500 ML IV ONE (21:05)
[2021-09-26] MEDS ORDERED: VANCOMYCIN CONSULT ACTIVE PRN (21:05)
[2021-09-26] MEDS ORDERED: ICU PROTOCOL FOR HYPERGLYCEMIA PRN (21:50)
[2021-09-26 22:16] LABS: Appearance Urine Clear (Clear); Bacteria Urine Automated Negative (Negative); Bilirubin Urine Negative (Negative); Blood Urine 1+ (Negative); Color Urine Dark Yellow; Epithelial Cell Urine Auto >30 /lpf (0-5); Glucose Urine UA Negative (Negative); Ketones Urine 1+ (Negative); Leukocyte Esterase Urine Trace (Negative); Nitrite Urine Negative (Negative); Protein Urine Trace (Negative); RBC Urine Automated 0-4 /hpf (0-4); Specific Gravity Urine 1.018 (1.000-1.030); Urobilinogen Urine Negative (Negative)
[2021-09-26 22:24] LABS: Urine Potassium 39.5 mmol/L
--- NOTE | 2021-09-26 22:24 | History & Physical Report ---
Date of Service September 26, 2021 Assessment & Plan (1) Shock: Plan: Shock requiring Levophed infusion to maintain MAPS - DDX: Sepsis vs. Adrenal insufficiency vs. hypovolemia - Patient resuscitated with 2L crystalloid- continue with Normosol infusion - Compensated metabolic acidosis with GAP 17 - Base deficit -4 - Responded to stress dose steroid- continue Hydrocortisone 50mg IV q6 - Blood and urine culture pending- PCT 4.32 - Continue Vanco and Cefepime- Defer to ICU for Vanco vs. Dapto - TSH is normal - random cortisol pending (unable to perform on weekend) - No new medications and no BB/CA channel blockers as cause - To the ICU continue workup and supportive care (2) ARF (acute renal failure): Plan: Acute rise in SPINNER OPEN END to 3.8 - Likely secondary to hypotension - Trace protein with trace blood- no EOS in periphery - BUN stable - HCO3 19- follow closely- consider changing IVF to isotonic HCO3 if needed - Renal artery ultrasound with Duplex pending- CTAP performed without contrast secondary to SPINNER OPEN END - MONIE/Diuretic held - FeUREA- pending with UUN - UCT 119.5 with UA- 36 (3) Metastatic renal cell carcinoma: Plan: 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 - Patient is maintained on Pembrolizumab her Axitinib is on hold - Last treatment was last week. (4) Back pain at L4-L5 level: Plan: Consider MRI when stable and central access obtained for further eval of back pain etiology (5) Hypothyroidism: Plan: Stable TSH and T4 (6) Numbness and tingling of both legs: Plan: CK mildly elevated 267 - Consider MRI once stable - Has been ongoing so not acute change (7) GERD (gastroesophageal reflux disease): Plan: Change PPI to IV while on high dose steroids and vasopressor History of Present Illness Primary Care Provider: Carloz Infante, DO 61 YOF with past medical history of: HTN, Hypothyroidism, solitary kidney and Renal cell carcinoma with right sided nephrectomy 2018 who has been battling side effects including weakness in bilateral extremities and diarrhea, appetite loss and weight loss. She has been on steroids to assist manage these symptoms of 5mg PO daily, which has been weaned off in late Aug. She has had ongoing lower back pain starting in Sep 06 with muscle spasms that are causing her to have her muscles tighten up as well as her legs and she has to spend most of her time lying down. She was evaluated by orthopaedics for her pain following a CT AP in without metastic disease and normal appearing left kidney and adrenal gland. 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 For her appetite loss she has recently stopped her Axitinib. She was to have a AM cortisol drawn within the upcoming weeks. Patient is mentating well and is appropriate at this time. She deneis any new medications starting, or having any fevers, chills, urinary symptoms or loss of bowels or bladder. Her back pain is in the lower lumbar region and is steady and sharp ache in nature, worsens with bending forward or sitting. Relieved somewhat by lying down. She has seen chiropractor recently and denies any injections. Patient comes to the EMD today following PCP evaluation where she was noted to be hypotensive, unsteadiness when getting up from standing. She did not endorse labored breathing or hypoxia however PCP note states she started showing signs of labored breathing and EMS was called. She arrived to the EMD remaining hypotensive and hypothermic, a septic workup was initiated to include blood c ulture, procalcitonin, lactate and VBG as well as routine CBC and BMP. She was initiated on Levophed infusion that was escalated to 0.12mcg/kg/min to maintain MAPS ~65. Her BMP was notable for acute rise in her SPINNER OPEN END to 3.86 from 0.96 on 09/22/21 (baseline 0.9-1.29), HCO3 19, compensated metabolic acidosis, mild hyponatremia 133, Gap of 17. PCT was elevated to 4 with normal lactate. She had CT of abdomen and pelvis done with no acute process, CXR without opacities or pneumothorax. She has no focal neurological deficits. Patient was initially given 50mg IV hydrocortisone without effect, and re-dose 100mg hydrocortisone for total of 150mg Hydrocortisone with increase in her BP and MAPS currently. Her TSH is normal and her electrolytes are within normal range. Urine was obtained for UA, renal lytes, renal ultrasound with Doppler ordered, She was started on Cefepime and Vancomycin for empiric coverage. ICU was consulted for admission. Allergies Allergy/AdvReac Type Severity Reaction Status Date / Time hydromorphone [From Dilaudid] AdvReac Intermediate N/V Verified 09/26/21 16:07 Home Medications Medication Instructions Recorded Confirmed Type multivitamin 1 tab PO QDL 02/20/19 09/26/21 History denosumab 60 mg/mL subcutaneous 60 mg SUBCUT UD 04/11/19 09/26/21 History syringe (Prolia) pembrolizumab 25 mg/mL intravenous 2 mg/kg IV .EVERY 6 WEEKS ml 07/12/19 09/26/21 History solution (Keytruda) ascorbic acid (vitamin C) 1,000 mg 1 g PO QDL 06/07/20 09/26/21 History tablet (Vitamin C) cholecalciferol (vitamin D3) 25 1,000 unit PO QAM 06/07/20 09/26/21 History mcg (1,000 unit) tablet (Vitamin D3) nystatin 100,000 unit/gram topical 1 applic TOPICAL BID PRN 06/07/20 09/26/21 History powder potassium gluconate 595 mg (99 mg) 595 mg PO QDL 06/07/20 09/26/21 History tablet levothyroxine 100 mcg tablet 100 mcg PO .COMPLEX 90 Days #90 tab 09/03/21 09/26/21 Rx lisinopril 20 0.5 tab PO QAM #90 tab 09/03/21 09/26/21 Rx mg-hydrochlorothiazide 12.5 mg tablet axitinib 1 mg tablet (Inlyta) 2 mg PO .ON HOLD SINCE09/24/21 tab 09/17/21 09/26/21 History cyclobenzaprine 10 mg tablet 10 mg PO HS PRN 09/26/21 09/26/21 History ondansetron HCl 8 mg tablet 8 mg PO Q8 PRN 09/26/21 09/26/21 History oxycodone 5 mg tablet 5 mg PO .EVERY 4-6 HOURS PRN 09/26/21 09/26/21 History pantoprazole 40 mg tablet,delayed 40 mg PO DAILY 09/26/21 09/26/21 History release Past Med/Surg History Medical History (Updated 09/26/21 @ 23:01 by ABDULKADIR Turner) Anemia Arthritis Asthma childhood; no current issues Chronic kidney disease, stage II (mild) H. pylori infection HX Hyperthyroidism Metastatic renal cell carcinoma Osteoporosis Renal cell carcinoma of right kidney 04/14/19 Dr. Vandana Infante--sx/chemo Surgical History History of carpal tunnel surgery RT/LEFT History of colonoscopy History of foot surgery RT/LEFT FOOT for bilateral bone spurs and plantar fasciaitis Right foot also had surgery for 2 hammer toes History of nephrectomy, right (~03/2019) History of surgery on wrist LEFT (BONE SPUR REMOVED) History of tooth extraction Ulnar nerve entrapment at elbow RT/LEFT ULNAR NERVE RELEASE Family History Mother , 78 yo Diabetes Osteoporosis Hypertension Stroke Sister Diabetes Osteoporosis Hypertension Stroke Brother Diabetes Hypertension Aunt Diabetes Cardiac disorder Hypertension Stroke Father Unknown family medical history Family/Other Multiple personalities Cervical cancer Lupus Uncle Diabetes Cardiac disorder Stroke Grandfather Parkinsonism Other No family history of adverse response to anesthesia Denies family history of Ovarian cancer Prostate cancer Kidney disease Myocardial infarction Breast cancer Colorectal cancer Social History Smoking Status: Never smoker Age Started Using Tobacco: 16; Age Quit Using Tobacco: 39; packs per day: 0.5; Cigarettes Per Day: 1/2 PPD x 15 yrs when she smoked;; Second Hand Exposure: No; Do You Dip or Chew Tobacco: No; Tobacco Cessation Education Requested by Patient: No Hx Alcohol Use: No Hx Substance Use: No Preferred Language: Ukrainian Communication Ability: Effective Visual Impairment: No Limitations Hearing Ability: Normal [facility] Required: No Beliefs That Will Affect Care: None marital status: Current Living Situation: Spouse current occupational status: employed 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 Other Information That Helps Us Care for You: No Feels Safe at Home: Yes Safety Concerns: Feels Safe At This Time Childhood Exposure to Second-Hand Smoke: Yes caffeine: Yes (1 cup/day) during the past year weight has: remained stable Dental Care, Regularly: Yes Physical Activity Frequency: 3-4 Times per Week Seatbelt Use: always Sunscreen Use: Yes Assistive Devices: Glasses Review of Systems Review of Systems: REVIEW OF SYSTEMS: Constitutional: No fever, sweats or chills Eyes: No diplopia, no worsening or blurred vision ENT: normal hearing, no trouble swallowing Respiratory: No cough, sputum, dyspnea at rest or on exertion Cardiovascular: (+) dizziness today, No chest pain, tightness or palpitations Abdomen: No pain, nausea, vomiting, diarrhea or constipation Musculoskeletal: (+) lower back pain with weakness, leg muscle pain, joint pain , calf pain, swelling Neurologic: (+) weakness, numbness/tingling, or balance problems Psychiatric: No anxiety or depression Skin: No rash or itch Physical Exam Physical Exam: PHYSICAL EXAM: General: awake, alert, fatigued Head: Normocephalic, atraumatic ENT: PERRLA, EOMI, no pharyngeal exudate, mucous membranes moist Neuro: AAO x 3, speech clear and appropriate, strength 4/5 upper and 4/5 lower extremity, pain with straight leg raise, sensation intact and equal all extremities and dermatomes, no pronator drift, normal Babinski, no loss of bowel or bladder Chest: equal rise and fall of the chest, no accessory muscle use, no heaves or thrills, decreased in the bases Cardiac: Regular rate and rhythm, telemetry reviewed-NSR with PAc, skin warm dry, cap refill <3 seconds, peripheral pulses +2 no JVD, no murmur, trace lower extremity edema bilaterally GI: NABS x 4 quadrants, soft, nontender to palpation, no rebound, guarding or tenderness, small soft hernia : Spontaneously voiding- last voided at 1500- Mart placed, no pain, no CVA tenderness, Extremities: Normal inspection, no peripheral edema or erythema, calfs nontender to palpation Psych: Normal mood and affect Skin: no rash or erythema Results & Data Results & Data ([facility]) Vital Signs (Past 12 Hours) Vital Signs Temp Pulse Pulse Resp BP BP Pulse Ox 09/26/21 22:06 87 12 97/72 L 98 09/26/21 22:04 85 11 L 97/72 L 97 09/26/21 21:25 88 13 107/65 97 09/26/21 20:44 86 15 95/69 L 100 09/26/21 20:38 85 19 81/55 L 98 09/26/21 20:15 83 11 L 70/53 L 99 09/26/21 20:10 82 11 L 72/48 L 89 L 09/26/21 20:07 83 12 95/48 L 96 09/26/21 20:00 81 81 19 104/57 L 104/57 L 91 09/26/21 19:55 88 13 67/48 L 97 09/26/21 19:53 85 15 80/49 L 97 09/26/21 19:50 85 19 86 L 09/26/21 19:45 83 11 L 70/45 L 99 09/26/21 19:40 82 12 99 09/26/21 19:30 82 10 L 77/44 L 98 09/26/21 19:20 87 21 82/39 L 96 09/26/21 19:15 85 12 68/43 L 95 09/26/21 19:10 86 14 95 09/26/21 19:00 85 18 97/60 L 94 09/26/21 18:50 84 8 L 99 09/26/21 18:49 83 15 86/60 L 09/26/21 18:45 87 13 09/26/21 18:40 87 15 09/26/21 18:31 84 11 L 96/50 L 09/26/21 18:30 84 12 09/26/21 18:21 83 19 81/45 L 09/26/21 18:20 83 19 81/45 L 98 09/26/21 17:17 36.4 C L 114 H 20 85/53 L 97 Laboratory Results Abnormal lab results 09/26/21 09/26/21 09/26/21 Range/Units 18:05 18:05 18:05 RBC 5.47 H (4.2-5.4) M/uL RDW Std Deviation 48.4 H (36.4-46.3) fL RDW Coeff of Ebony 16.1 H (11.5-14.5) % [place] # (Auto) 0.74 H (0.11-0.59) K/uL VBG pH (7.36-7.41) Sodium 133 L (136-145) mmol/L Chloride 97 L (98-107) mmol/L Carbon Dioxide 19 L (21-32) mmol/L Anion Gap 17 H (3-11) BUN 27 H (6-23) mg/dl Creatinine 3.86 H (0.6-1.2) mg/dl BUN/Creatinine Ratio 7.0 L (10-20) AST 40 H (13-39) U/L Ammonia (18-72) umol/L Total Creatine Kinase (26-192) U/L Procalcitonin 4.32 H (0-0.5) ng/ml Urine Protein (Negative) Urine Ketones (Negative) Urine Blood (Negative) Ur Leukocyte Esterase (Negative) U Hyaline Cast (Auto) (0-5) /lpf U Epithel Cells (Auto) (0-5) /lpf Uric Acid Crystals (None Prsent) 09/26/21 09/26/21 09/26/21 Range/Units 18:05 19:01 19:01 RBC (4.2-5.4) M/uL RDW Std Deviation (36.4-46.3) fL RDW Coeff of Ebony (11.5-14.5) % [place] # (Auto) (0.11-0.59) K/uL VBG pH 7.35 L (7.36-7.41) Sodium (136-145) mmol/L Chloride (98-107) mmol/L Carbon Dioxide (21-32) mmol/L Anion Gap (3-11) BUN (6-23) mg/dl Creatinine (0.6-1.2) mg/dl BUN/Creatinine Ratio (10-20) AST (13-39) U/L Ammonia 14.0 L (18-72) umol/L Total Creatine Kinase 267 H (26-192) U/L Procalcitonin (0-0.5) ng/ml Urine Protein (Negative) Urine Ketones (Negative) Urine Blood (Negative) Ur Leukocyte Esterase (Negative) U Hyaline Cast (Auto) (0-5) /lpf U Epithel Cells (Auto) (0-5) /lpf Uric Acid Crystals (None Prsent) 09/26/21 Range/Units 22:00 RBC (4.2-5.4) M/uL RDW Std Deviation (36.4-46.3) fL RDW Coeff of Ebony (11.5-14.5) % [place] # (Auto) (0.11-0.59) K/uL VBG pH (7.36-7.41) Sodium (136-145) mmol/L Chloride (98-107) mmol/L Carbon Dioxide (21-32) mmol/L Anion Gap (3-11) BUN (6-23) mg/dl Creatinine (0.6-1.2) mg/dl BUN/Creatinine Ratio (10-20) AST (13-39) U/L Ammonia (18-72) umol/L Total Creatine Kinase (26-192) U/L Procalcitonin (0-0.5) ng/ml Urine Protein Trace H (Negative) Urine Ketones 1+ H (Negative) Urine Blood 1+ H (Negative) Ur Leukocyte Esterase Trace H (Negative) U Hyaline Cast (Auto) 10-30 H (0-5) /lpf U Epithel Cells (Auto) >30 H (0-5) /lpf Uric Acid Crystals Present A (None Prsent) Diagnostic Findings Chest X-Ray 09/26/21 17:23 XR chest 1V portable CLINICAL HISTORY: weakness TECHNIQUE: Single frontal radiograph of the chest was obtained. Comparison: None available at the time of this dictation. FINDINGS: No lines and tubes are seen. Calcified aortic knob is seen. The lungs are clear. No evidence of pleural effusion or pneumothorax. IMPRESSION: No acute chest disease. ACT 112: Negative or not required by law. Electronically signed by: Kyaw Avila M.D. 09/26/2021 6:01 PM Abdomen/Pelvis CT 09/26/21 19:13 CT abd pelvis wo con CLINICAL HISTORY: back pain, vomiting, rhiannon TECHNIQUE: Helical axial images of the abdomen and pelvis were obtained. Automated dose lowering techniques and/or adjustment according to patient size were utilized for this exam. This exam was performed without intravenous contrast. COMPARISON: None available at the time of this dictation. FINDINGS: Lower chest: No acute abnormality Liver: Unremarkable. No focal lesions are seen. Gallbladder and biliary tree: No calcified gallstones. Normal caliber wall. No intra- or extrahepatic biliary ductal dilation. Pancreas: Unremarkable, no focal lesions. Spleen: Splenule is incidentally noted. Adrenals: Unremarkable. Kidneys and ureters: Status post right nephrectomy. Bladder: Limited evaluation due to underdistention. Reproductive organs: Unremarkable. Bowel: Unremarkable appearance of the bowel. The appendix is normal. Lymph nodes Retroperitoneal: Unremarkable. Mesenteric: Unremarkable. Pelvic: Unremarkable. Peritoneum: Normal. Vessels: Unremarkable. Abdominal wall: A fat-containing umbilical hernia is seen. Bones: Unremarkable. IMPRESSION: No acute abnormalities. ACT 112: Negative or not required by law. Electronically signed by: Kyaw Avila M.D. 09/26/2021 8:47 PM Medications Administered Home Medications multivitamin 1 tab PO QDL 02/20/19 [History Confirmed 09/26/21] denosumab 60 mg/mL subcutaneous syringe (Prolia) 60 mg SUBCUT UD 04/11/19 [History Confirmed 09/26/21] pembrolizumab 25 mg/mL intravenous solution (Keytruda) 2 mg/kg IV .EVERY 6 WEEKS ml 07/12/19 [History Confirmed 09/26/21] ascorbic acid (vitamin C) 1,000 mg tablet (Vitamin C) 1 g PO QDL 06/07/20 [History Confirmed 09/26/21] cholecalciferol (vitamin D3) 25 mcg (1,000 unit) tablet (Vitamin D3) 1,000 unit PO QAM 06/07/20 [History Confirmed 09/26/21] nystatin 100,000 unit/gram topical powder 1 applic TOPICAL BID PRN 06/07/20 [History Confirmed 09/26/21] potassium gluconate 595 mg (99 mg) tablet 595 mg PO QDL 06/07/20 [History Confirmed 09/26/21] levothyroxine 100 mcg tablet 100 mcg PO .COMPLEX 90 Days #90 tab 09/03/21 [Rx Confirmed 09/26/21] lisinopril 20 mg-hydrochlorothiazide 12.5 mg tablet 0.5 tab PO QAM #90 tab 09/03/21 [Rx Confirmed 09/26/21] axitinib 1 mg tablet (Inlyta) 2 mg PO .ON HOLD SINCE09/24/21 tab 09/17/21 [History Confirmed 09/26/21] cyclobenzaprine 10 mg tablet 10 mg PO HS PRN 09/26/21 [History Confirmed 09/26/21] ondansetron HCl 8 mg tablet 8 mg PO Q8 PRN 09/26/21 [History Confirmed 09/26/21] oxycodone 5 mg tablet 5 mg PO .EVERY 4-6 HOURS PRN 09/26/21 [History Confirmed 09/26/21] pantoprazole 40 mg tablet,delayed release 40 mg PO DAILY 09/26/21 [History Confirmed 09/26/21] Active Medications Heparin Sodium (Porcine) (Heparin Sod 5,000 Unit/0.5 Ml Vial) 7,500 units SQ Q8 AKHIL Stop: 10/26/21 21:59 Norepinephrine Bitartrate (Levophed/D5w) 8 mg in 508 mls @ 38.431 mls/hr IV .[id number] AKHIL; Protocol Stop: 10/26/21 19:29 Last Titration: 09/26/21 21:05 Dose: 0.11 mcg/kg/min, 38.4 mls/hr Documented by: Vancomycin HCl 1,750 mg/ (Sodium Chloride) 535 mls @ 200 mls/hr IV NOW ONE Stop: 09/26/21 23:45 Last Admin: 09/26/21 21:59 Dose: 200 mls/hr Documented by: Parenteral Electrolytes (Normosol-R) 1,000 mls @ 125 mls/hr IV .Q8H AKHIL Stop: 10/26/21 21:59 Pantoprazole Sodium 40 mg/ (Syringe) 10 mls @ 5 mls/min IV DAILY@1100 AKHIL Stop: 10/27/21 10:59 Miscellaneous (Icu Protocol For Hyperglycemia) 1 ea N/A PRN PRN; Protocol PRN Reason: Hyperglycemia Protocol Stop: 09/28/21 21:49 Miscellaneous Information (Vancomycin Consult Active) 1 ea N/A UD PRN PRN Reason: Consult Stop: 10/26/21 21:04 Norepinephrine Bitartrate (Levophed/D5w) 8 mg in 508 mls @ 38.431 mls/hr IV .[id number] AKHIL; Protocol Stop: 10/26/21 19:29 Last Titration: 09/26/21 21:05 Dose: 0.11 mcg/kg/min, 38.4 mls/hr Documented by: [id number] Titration: 09/26/21 20:17 Dose: 0.09 mcg/kg/min, 31.4 mls/hr Documented by: [id number] Titration: 09/26/21 20:10 Dose: 0.07 mcg/kg/min, 24.5 mls/hr Documented by: [id number] Admin: 09/26/21 19:57 Dose: 0.05 mcg/kg/min, 17.5 mls/hr Documented by: [id number] Cosigned by: [id number] Vancomycin HCl 1,750 mg/ (Sodium Chloride) 535 mls @ 200 mls/hr IV NOW ONE Stop: 09/26/21 23:45 Last Admin: 09/26/21 21:59 Dose: 200 mls/hr Documented by: [id number] Discontinued Medications Hydrocortisone Sodium Succinate (Hydrocortisone Sod Succinate 100 Mg/2 Ml Vial) 50 mg IV NOW STA Stop: 09/26/21 19:28 Last Admin: 09/26/21 19:38 Dose: 50 mg Documented by: [id number] Hydrocortisone Sodium Succinate (Hydrocortisone Sod Succinate 100 Mg/2 Ml Vial) 100 mg IV NOW STA Stop: 09/26/21 21:06 Last Admin: 09/26/21 21:19 Dose: 100 mg Documented by: [id number] Sodium Chloride (Nss) 500 mls @ 999 mls/hr IV .Q31M AKHIL Stop: 09/26/21 18:15 Last Infusion: 09/26/21 19:12 Dose: 0 mls/hr Documented by: [id number] Admin: 09/26/21 18:18 Dose: 999 mls/hr Documented by: [id number] Sodium Chloride (Nss 1000ml) 1,000 mls @ 999 mls/hr IV .Q1H1M ONE Stop: 09/26/21 19:03 Last Infusion: 09/26/21 19:12 Dose: 0 mls/hr Documented by: [id number] Admin: 09/26/21 18:18 Dose: 999 mls/hr Documented by: [id number] Lactated Ringer's (Lr) 1,000 mls @ 999 mls/hr IV .Q1H1M ONE Stop: 09/26/21 20:27 Last Infusion: 09/26/21 21:35 Dose: 0 mls/hr Documented by: [id number] Admin: 09/26/21 19:45 Dose: 999 mls/hr Documented by: [id number] Cefepime HCl (Maxipime) 2,000 mg in 20 mls @ 5 mls/min IV NOW STA; Protocol Stop: 09/26/21 19:37 Last Admin: 09/26/21 19:39 Dose: 5 mls/min Documented by: [id number] Lactated Ringer's (Lr) 500 mls @ 999 mls/hr IV .Q31M ONE Stop: 09/26/21 21:21 Last Infusion: 09/26/21 21:47 Dose: 0 mls/hr Documented by: [id number] Admin: 09/26/21 21:16 Dose: 999 mls/hr Documented by: [id number] Ondansetron HCl (Ondansetron Inj 2 Mg/Ml 2 Ml Vial) 4 mg IV NOW STA Stop: 09/26/21 18:04 Last Admin: 09/26/21 18:18 Dose: 4 mg Documented by: [id number] ECG Additional Comments: NSR with prolonged QT 503 Code Status & VTE Plan Code Status CODE: FULL VTE: SCDs, Heparin 7500 q8 subq VTE Prophylaxis Plan VTE Prophylaxis will be ordered: Yes Supervising Physician Co-Signing Physician Notes Patient seen and examined, chart reviewed, case discussed with ABDULKADIR Corbin and I agree with his assessment and plan as above. In brief, patient is a 61yo female with history of HTN, Hypothyroidism, RCC s/p right nephrectomy presenting with weakness, diarrhea, appetite loss. Seen by PCP today and found to be hypotensive and unsteady. Hypothermia with T of 36.4. Low blood pressures in ER unresponsive to 3L crystalloid infusion. Administered Hydrocortisone 50mg IV + 100mg IV in the ER. Patient initiated on Levophed infusion. Seen at bedside in MICU after transferred from ER. Patient being prepped for central line placement. States that she feels much improved. Denies fever, chills, chest pain, cough, facial pain, joint pain, recent vomiting or diarrhea. Skin - warm, dry, intact, no rashes or lesions HEENT - NC/AT, Neck supple, No JVD Heart - +S1/S2, regular, no m/r/g Lungs - CTA anteriorly, no rales/rhonchi/wheezes Abd - +BS, soft, NT/ND Ext - No edema Labs and images reviewed. Patient with anion gap metabolic acidosis - pH on VBG=7.35, Gap=17, HCO3=19 BUN=27, Cr=3.86 up from 10 and 0.96, respectively on 09/22/21 Procalcitonin is elevated at 4.32 CT Abdomen and Pelvis unremarkable as was chest x-ray Assessment/Plan - 61yo female presenting with hypothermia, shock resistant to IVF resuscitation (3L total administered in ER, 30mL/kg met). Ddx to include adrenal insufficiency - patient recently on steroids which have been tapered off. She is s/p nephrectomy for RCC - metastatic disease with mets to liver, left kidney. ?Sepsis - source unclear ?Dehydration as well -MICU admission -Continue Levophed infusion - goal MAP >65 -Continue stress dose hydrocortisone -Empiric antibiotics, await cultures -Follow renal function -Renal duplex pending -Remainder as above PG Care Time/CCT Total # of Minutes Spent Total Time Spent with Patient: Total time spent is greater than 50% in coordination of care (as documented) at patient's floor/unit and/or counseling patient: Critical Care time 60 minutes Coding Level of Care Code None Diagnoses Shock R57.9 Metastatic renal cell carcinoma C64.1 Laterality: right ARF (acute renal failure) N17.9 Hypothyroidism E03.9 Numbness and tingling of both legs R20.0; R20.2 GERD (gastroesophageal reflux disease) K21.9 Back pain at L4-L5 level M54.50 (1) Metastatic renal cell carcinoma Laterality: right Qualified Code(s): C64.1 - Malignant neoplasm of right kidney, except renal pelvis
[2021-09-26 22:34] LABS: Uric Acid Crystals Urine Present (None Prsent)
--- NOTE | 2021-09-26 23:46 | Critical Care Consultation ---
Date of Consultation September 26, 2021 Assessment & Plan (1) Shock: Reason Critically Ill: 61-year-old female with metastatic renal cell carcinoma and solitary kidney presents to the ICU in shock requiring vasopressor support Neuro - CAM ICU: Negative Cardiac - Shocketiology septic versus adrenal insufficiency -See ID below for treatment of sepsis -Possible adrenal insufficiency as patient has been weaned from prednisone recently. Received 150 mg hydrocortisone in the ED. Will proceed with 50 mg every 6 -Received 2.5 L crystalloid bolus. Continue with IV fluid resuscitation -Hold antihypertensives -Central line inserted for vasopressors. Currently on Levophed drip and will titrate for maps greater than 65 Respiratory - No history of pulmonary disease. Currently maintaining oxygen saturation on room air without labored breathing. Continuous monitoring pulse ox GI - N.p.o. Famotidine RENAL/LYTES - Acute renal failurecreatinine 3.86 with baseline 0.96 and patient with solitary kidney. -Likely ATN secondary to hypotension -Follow-up US duplex renal artery -Continue maintain maps greater than 65 -Continue with IV fluid resuscitation -Avoid nephrotoxins and renally adjust medications -Monitor with routine BMPs Metastatic renal cell carcinomainitial stage of three with mets to liver, left kidney, IVC, left hilar -Most recent scan without evidence of metastasis -Currently maintained on Keytruda which she states she received Wednesday - Foleystrict I's and O's ENDO - No history of diabetes, ICU hyperglycemic protocol Hypothyroidcontinue Synthroid HEME - H&H stable, monitor routine CBCs ID - Sepsis?Patient with normal WBC and afebrile but currently in shock with elevated procalcitonin. Without clear source patient on chemotherapy and steroids. -Continue broad-spectrum antibiotics cefepime, vancomycin -Follow-up urine and blood culture LINES/IV ACCESS - Right internal jugular line DVT PROPHYLAXIS - SCDs I have personally spent 50 minutes of critical care time in the direct management of this patient. This is a life/limb threatening event. This includes time spent evaluating patient, direct bedside care, chart review, placing orders, interpretation of diagnostic studies, discussion with consultants, patient, and family members, as well as other required patient management activities. This time is exclusive of all separately billable procedures, and teaching time and separate from and in addition to any other critical care service time. Thank you for allowing us to participate in the care of this patient. Please refer to my attending physician's documentation for any further recommendations. (2) Back pain at L4-L5 level: (3) GERD (gastroesophageal reflux disease): (4) ARF (acute renal failure): (5) Shock: (6) Metastatic renal cell carcinoma: (7) Solitary kidney: History of Present Illness History of Present Illness Patient is a 61-year-old female with past medical history significant for HTN, hypothyroidism, solitary kidney and renal cell carcinoma with right-sided nephrectomy in 2019. She states that her last chemotherapy was on Wednesday with Keytruda. She was also on 5 mg prednisone daily which was recently weaned off in August. She was evaluated by her primary care physician earlier today and was noted to be weak and unsteady while standing and hypotensive. She was noted to be hypotensive and hypothermic in the ED with elevated pro calcitonin, and she had elevated creatinine. She was started on Levophed drip. She also received 2.5 L crystalloid bolus. Chest x-ray was unremarkable along with CT a bdomen and pelvis. She received 150 mg hydrocortisone in the ED. She was started on broad-spectrum antibiotics and transferred to the ICU. Currently patient is alert and oriented and appears comfortable and is mentating well. She denies any current headaches or dizziness or syncope. She denies recent illness, cough, congestion, sore throat, shortness of breath, chest pain, palpitations, abdominal pain, nausea or vomiting or diarrhea, or swelling in extremities. Patient does state that she has had recent muscle spasms of back pain that started late August. Allergies Allergy/AdvReac Type Severity Reaction Status Date / Time hydromorphone [From Dilaudid] AdvReac Intermediate N/V Verified 09/26/21 16:07 Home Medications Medication Instructions Recorded Confirmed Type multivitamin 1 tab PO QDL 02/20/19 09/26/21 History denosumab 60 mg/mL subcutaneous 60 mg SUBCUT UD 04/11/19 09/26/21 History syringe (Prolia) pembrolizumab 25 mg/mL intravenous 2 mg/kg IV .EVERY 6 WEEKS ml 07/12/19 09/26/21 History solution (Keytruda) ascorbic acid (vitamin C) 1,000 mg 1 g PO QDL 06/07/20 09/26/21 History tablet (Vitamin C) cholecalciferol (vitamin D3) 25 1,000 unit PO QAM 06/07/20 09/26/21 History mcg (1,000 unit) tablet (Vitamin D3) nystatin 100,000 unit/gram topical 1 applic TOPICAL BID PRN 06/07/20 09/26/21 History powder potassium gluconate 595 mg (99 mg) 595 mg PO QDL 06/07/20 09/26/21 History tablet levothyroxine 100 mcg tablet 100 mcg PO .COMPLEX 90 Days #90 tab 09/03/21 09/26/21 Rx lisinopril 20 0.5 tab PO QAM #90 tab 09/03/21 09/26/21 Rx mg-hydrochlorothiazide 12.5 mg tablet axitinib 1 mg tablet (Inlyta) 2 mg PO .ON HOLD SINCE09/24/21 tab 09/17/21 09/26/21 History cyclobenzaprine 10 mg tablet 10 mg PO HS PRN 09/26/21 09/26/21 History ondansetron HCl 8 mg tablet 8 mg PO Q8 PRN 09/26/21 09/26/21 History oxycodone 5 mg tablet 5 mg PO .EVERY 4-6 HOURS PRN 09/26/21 09/26/21 History pantoprazole 40 mg tablet,delayed 40 mg PO DAILY 09/26/21 09/26/21 History release Patient History Medical History (Updated 09/26/21 @ 23:01 by ABDULKADIR Turner) Anemia Arthritis Asthma childhood; no current issues Chronic kidney disease, stage II (mild) H. pylori infection HX Hyperthyroidism Metastatic renal cell carcinoma Osteoporosis Renal cell carcinoma of right kidney 04/14/19 Dr. Vandana Infante--sx/chemo Surgical History History of carpal tunnel surgery RT/LEFT History of colonoscopy History of foot surgery RT/LEFT FOOT for bilateral bone spurs and plantar fasciaitis Right foot also had surgery for 2 hammer toes History of nephrectomy, right (~03/2019) History of surgery on wrist LEFT (BONE SPUR REMOVED) History of tooth extraction Ulnar nerve entrapment at elbow RT/LEFT ULNAR NERVE RELEASE Family History Mother , 78 yo Diabetes Osteoporosis Hypertension Stroke Sister Diabetes Osteoporosis Hypertension Stroke Brother Diabetes Hypertension Aunt Diabetes Cardiac disorder Hypertension Stroke Father Unknown family medical history Family/Other Multiple personalities Cervical cancer Lupus Uncle Diabetes Cardiac disorder Stroke Grandfather Parkinsonism Other No family history of adverse response to anesthesia Denies family history of Ovarian cancer Prostate cancer Kidney disease Myocardial infarction Breast cancer Colorectal cancer Social History Smoking Status: Never smoker Age Started Using Tobacco: 16; Age Quit Using Tobacco: 39; packs per day: 0.5; Cigarettes Per Day: 1/2 PPD x 15 yrs when she smoked;; Second Hand Exposure: No; Do You Dip or Chew Tobacco: No; Tobacco Cessation Education Requested by Patient: No Hx Alcohol Use: No Hx Substance Use: No Preferred Language: Arabic Communication Ability: Effective Visual Impairment: No Limitations Hearing Ability: Normal Sap Architect Required: No Beliefs That Will Affect Care: None marital status: Current Living Situation: Spouse current occupational status: employed 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 Other Information That Helps Us Care for You: No Feels Safe at Home: Yes Safety Concerns: Feels Safe At This Time Childhood Exposure to Second-Hand Smoke: Yes caffeine: Yes (1 cup/day) during the past year weight has: remained stable Dental Care, Regularly: Yes Physical Activity Frequency: 3-4 Times per Week Seatbelt Use: always Sunscreen Use: Yes Assistive Devices: Glasses Review of Systems Review of Systems: All systems reviewed & are unremarkable except as noted in HPI & below Physical Exam Constitutional: cooperative and comfortable Eyes: PERRL, conjunctivae normal, anicteric sclerae ENMT: external ear and nose normal, oropharynx normal Neck: trachea midline, no thyromegaly Respiratory: normal respiratory effort, lungs clear to auscultation Cardiovascular: RRR, no murmur, no edema Heart Sounds: normal S1 and normal S2 Vessels: no JVD Extremities: normal capillary refill Gastrointestinal (Abdomen): normal bowel sounds, soft, nontender, no hepatosplenomegaly Musculoskeletal: no cyanosis or clubbing, extremities motor strength 5/5 Skin: no rashes, warm and dry Neurologic: PERRL, EOMI, accommodation nl, no face palsy, no dysarthria Psychiatric: A+Ox3, euthymic affect Genitourinary: Indwelling Mart catheter present Results & Data Results & Data ([facility]) Vital Signs (Past 12 Hours) Vital Signs Temp Pulse Pulse Resp BP BP Pulse Ox 09/26/21 22:06 87 12 97/72 L 98 09/26/21 22:04 85 11 L 97/72 L 97 09/26/21 21:25 88 13 107/65 97 09/26/21 20:44 86 15 95/69 L 100 09/26/21 20:38 85 19 81/55 L 98 09/26/21 20:15 83 11 L 70/53 L 99 09/26/21 20:10 82 11 L 72/48 L 89 L 09/26/21 20:07 83 12 95/48 L 96 09/26/21 20:00 81 81 19 104/57 L 104/57 L 91 09/26/21 19:55 88 13 67/48 L 97 09/26/21 19:53 85 15 80/49 L 97 09/26/21 19:50 85 19 86 L 09/26/21 19:45 83 11 L 70/45 L 99 09/26/21 19:40 82 12 99 09/26/21 19:30 82 10 L 77/44 L 98 09/26/21 19:20 87 21 82/39 L 96 09/26/21 19:15 85 12 68/43 L 95 09/26/21 19:10 86 14 95 09/26/21 19:00 85 18 97/60 L 94 09/26/21 18:50 84 8 L 99 09/26/21 18:49 83 15 86/60 L 09/26/21 18:45 87 13 09/26/21 18:40 87 15 09/26/21 18:31 84 11 L 96/50 L 09/26/21 18:30 84 12 09/26/21 18:21 83 19 81/45 L 09/26/21 18:20 83 19 81/45 L 98 09/26/21 17:17 36.4 C L 114 H 20 85/53 L 97 Coding Level of Care Code Critical Care 1st 30-74 mins Diagnoses Back pain at L4-L5 level M54.50 GERD (gastroesophageal reflux disease) K21.9 ARF (acute renal failure) N17.9 Shock R57.9 Metastatic renal cell carcinoma C64.1 Laterality: right Shock R57.9 Solitary kidney Q60.0 (1) Metastatic renal cell carcinoma Laterality: right Qualified Code(s): C64.1 - Malignant neoplasm of right kidney, except renal pelvis
--- NOTE | 2021-09-27 00:28 | Procedure Note ---
Procedure Note Date of Service September 27, 2021 Note INTERNAL JUGULAR CENTRAL LINE PROCEDURE NOTE: Procedure: Internal Jugular Central Line Placement Attending: Dr. Adams Provider: ABDULKADIR Pinedo Indication: Central Drug Administration Anesthesia: Lidocaine 1% Line placed emergently in the setting of shock requiring vasopressor support. A time-out was completed verifying correct patient, procedure, site, positioning, and implants(s) or special equipment if applicable. Patients right neck was cleansed and draped in the typical sterile fashion using Chloraprep. The Internal Jugular Vein and Carotid Artery were identified using ultrasound. The superficial tissue was anesthetized using three mL of 1% lidocaine without epinephrine under direct visualization with the ultrasound. After adequate anesthetization was achieved, the Internal Jugular vein was cannulated under direct ultrasound guidance using an introducer needle on a syringe. Good venous blood return was maintained prior to removal of syringe from introducer needle. Using Seldinger Technique, a guide wire was advanced through the introducer needle without resistance. The introducer needle was removed and ultrasound images were obtained of the guide wire within the Internal Jugular Vein and saved to the patients medical record. A small incision was made in penetrating fashion at the guide wire insertion site utilizing an 11 blade scalpel. The dilator was advanced to the vessel without resistance. The dilator was exchanged for the triple lumen catheter which was advanced into the vessel without resistance. The guide wire was removed intact from the catheter without issue. Claves were placed on each catheter tip with confirmation of good blood flow from each lumen. Each port was easily flushed with sterile saline. The catheter was placed at 16 cm and sutured in place. BioPatch was applied to the catheter and a sterile Tegaderm dressing was applied over the catheter with careful attention to sterility. Patient tolerated procedure well. No immediate complications were met. Post procedure x-ray was completed, placement was appropriate and no pneumothorax was noted. Images obtained are saved for permanent record Procedural Ultrasound Guidance: Procedure Date: 09/27/2021 Indication: Central venous catheter insertion Attending: Dr. Adams Provider: ABDULKADIR Pinedo Artery AND Vein visualized: Yes Compressible Vein: Yes Guidewire or Short Catheter seen in vein prior to dilation: Yes Line confirmed in Vein with ultrasound: Yes Images obtained are saved for permanent record. Coding CPT Codes Tubes, Drains, and Vasc Access - Tubes, Drains, and Vasc Access: [id number] Place catheter in vein superior or inferior vena cava ([id number]) Tubes, Drains, and Vasc Access - Tubes, Drains, and Vasc Access: [id number] Ultrasound Guidance For Vascular ([id number]) [facility] [place] Procedure Codes (Charges) Tubes, Drains, and Vasc Access Procedure 1: Tubes, Drains, and Vasc Access: [id number] Place catheter in vein superior or inferior vena cava Procedure 2: Tubes, Drains, and Vasc Access: [id number] Ultrasound Guidance For Vascular
[2021-09-27] MEDS ORDERED: NORMOSOL-R 1,000 ML IV SCH (01:00)
[2021-09-27] MEDS: HEPARIN SOD 5,000 UNIT/0.5 ML VIAL SQ SCH ×4 (01:01→21:00)
[2021-09-27] MEDS: NORMOSOL-R 1,000 ML IV SCH ×3 (01:01→18:48)
[2021-09-27] MEDS: HYDROCORTISONE SOD 50 MG in SYRINGE 0 ML IV SCH ×4 (03:18→21:00)
[2021-09-27 06:44] LABS: Est GFR (African American) 32.6 ml/min; Est GFR (Non-African American) 28.1 ml/min
[2021-09-27 06:45] LABS: Albumin Level 3.2 gm/dl (3.4-5.0); BUN Creatinine Ratio 10.1 (10-20); Bilirubin,Total 0.4 mg/dl (0.2-1.0); Calcium 7.9 mg/dl (8.5-10.1); Creatinine Clr Calc Pharmacy 29.9 ml/min; Magnesium 2.2 mg/dl (1.7-2.4); Phosphorus 5.2 mg/dl (2.5-4.9); Potassium 3.9 mmol/L (3.5-5.1); Total Protein 5.2 gm/dl (6.0-8.3)
[2021-09-27 07:04] LABS: Hematocrit (blood only) 39.4 % (37-47); Hemoglobin 13.2 g/dL (12.0-16.0); Immature Granulocytes # (auto) 0.02 K/uL (0.00-0.02); Immature Granulocytes % (auto) 0.2 %; Lymphocytes # (auto) 0.75 K/uL (1.2-3.4); Lymphocytes % (auto) 8.2 %; Mean Corpuscular Hemoglobin 28.1 pg (25-34); Mean Platelet Volume 8.7 fL (7.4-10.4); Monocytes # (auto) 0.16 K/uL (0.11-0.59); Monocytes % (auto) 1.8 %; Neutrophils # (auto) 8.18 K/uL (1.4-6.5); Neutrophils % (auto) 89.8 %; Platelet Count 322 K/uL (130-400); RDW Coefficient of Variation 16.4 % (11.5-14.5); RDW Standard Deviation 49.9 fL (36.4-46.3); Red Blood Count 4.69 M/uL (4.2-5.4); White Blood Count 9.11 K/uL (4.8-10.8)
--- NOTE | 2021-09-27 07:09 | Electrocardiogram Report ---
Test Reason : Blood Pressure : / mmHG Vent. Rate : 081 BPM Atrial Rate : 081 BPM P-R Int : 150 ms QRS Dur : 094 ms QT Int : 520 ms P-R-T Axes : 041 -23 065 degrees QTc Int : 604 ms Normal sinus rhythm T wave abnormality, consider anterior ischemia Prolonged QT Abnormal ECG When compared with ECG of 30-JUL-2019 11:02, Nonspecific T wave abnormality now evident in Inferior leads T wave inversion more evident in Anterior leads QT has lengthened Confirmed by Paco Naylor ([id number]) on 09/27/2021 7:08:51 AM Referred By: Carloz Infante Confirmed By:Paco Naylor
[2021-09-27 07:11] LABS: Mean Corpuscular Hgb Conc 33.5 g/dL (32-36)
[2021-09-27] MEDS ORDERED: POTASSIUM CHLORIDE / WTR 10 MEQ/100 ML PLCT IV ONE (07:15)
--- NOTE | 2021-09-27 07:36 | Ultrasound Report ---
US duplex renal artery CLINICAL HISTORY: Acute kidney injury. Hypotension. Assess for renal artery stenosis. COMPARISON STUDY: Abdomen and pelvis CT 09/26/2021. FINDINGS: The right kidney is surgically absent. The left kidney measures 13.2 cm. Left renal vein is patent. No left-sided hydronephrosis. Resistive indices of the left renal arcuate arteries measure l ess than 0.8. Peak systolic velocity within the proximal left renal artery is 163 cm/s. There is a sm all septated cyst within the left kidney measuring 1.2 cm. The bladder is decompressed by Mart chin ter. IMPRESSION: 1. Prior right nephrectomy. 2. No evidence for left renal artery stenosis. ACT 112: Negative or not required by law. Electronically signed by: Luis Leiva M.D. 09/27/2021 7:35 AM
--- NOTE | 2021-09-27 07:41 | XRay Report ---
XR chest 1V portable HISTORY: central line placement COMPARISON: Chest 09/26/2021. FINDINGS: The lungs are clear. Cardiac silhouette is normal in size. No pleural effusions. No pneumot horax. Right jugular central venous catheter terminates at the expected location of the distal SVC. IMPRESSION: Right jugular central venous catheter terminates at the distal SVC. No pneumothorax. ACT 112: Negative or not required by law. Electronically signed by: Luis Leiva M.D. 09/27/2021 7:39 AM
--- NOTE | 2021-09-27 08:42 | Pharmacy Report ---
Pharmacy Vanc AUC Short Note - Date of Service September 27, 2021 - Assessment & Plan Assessment 61 year old F receiving Vancomycin and Cefepime for empiric treatment of sepsis. * PMHx significant for renal cell carcinoma s/p right nephrectomy and subsequent CKD. * Afebrile but was tachycardic and hypotensive requiring Levophed. * Renal fxn improved significantly today. Cultures pending. Plan Vancomycin * AUC/ALIN is the preferred PK/PD target for vancomycin * AUC guided dosing is effective and associated with decreased risk of nephrotoxicity compared to traditional trough targets * Loading dose of 1750 mg IV x 1 * Maintenance dose of 1000 mg IV every 24 hours - will stop after 48 hours for empiric indication * No trough will be ordered unless therapy is to extend beyond 48 hours. Cefepime * 2000 mg IV every 24 hours is appropriate Pharmacy will continue to follow and will adjust dose/frequency as necessary. Thank you.
[2021-09-27] MEDS ORDERED: HYDROCORTISONE SOD 100 MG in SYRINGE 0 ML IV SCH (09:00)
[2021-09-27] MEDS: FAMOTIDINE 20 MG TAB PO SCH ×2 (10:14→21:00)
--- NOTE | 2021-09-27 10:29 | Hospitalist Progress Note ---
Date of Service September 27, 2021 Assessment & Plan (1) Shock: Plan: Shock requiring Levophed infusion to maintain MAPS Improved - DDX: Sepsis vs. Adrenal insufficiency vs. hypovolemia - most likely adrenal insufficiency from history - Patient resuscitated with 2L crystalloid- continue with Normosol infusion - Responded to stress dose steroid- continue Hydrocortisone 50mg IV q6 - Blood and urine culture pending- PCT 4.32 - negative @ 24 hours - Continue Vanco and Cefepime pending 48 hours negative blood cultures - TSH is normal - random cortisol pending (unable to perform on weekend) - No new medications and no BB/CA channel blockers as cause - Continue in the ICU as still requiring Levophed (2) ARF (acute renal failure): Plan: Acute rise in Cr to 3.8 - Likely secondary to hypotension - Trace protein with trace blood- no EOS in periphery - BUN stable - HCO3 14 - consider switching to IV bicarb - deferred IV fluids to ICU team - Renal artery ultrasound with Duplex normal - MONIE/Diuretic held (3) Metastatic renal cell carcinoma: Plan: 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 - Patient is maintained on Pembrolizumab her Axitinib is on hold - Last treatment was last week. (4) Back pain at L4-L5 level: Plan: Consider MRI when stable and central access obtained for further eval of back pain etiology (5) Hypothyroidism: Plan: Stable TSH and T4 (6) Numbness and tingling of both legs: Plan: CK mildly elevated 267 - Consider MRI once stable - Has been ongoing so not acute change (7) GERD (gastroesophageal reflux disease): Plan: Change PPI to IV while on high dose steroids and vasopressor Plan: VTE Prophylaxis - heparin 5000 units Q8H Diet - NPO while on vasopressors Disposition - continued ICU stay while still requiring norepinephrine Admission and Anticipated Discharge Date Admission Date: September 26, 2021 Subjective No current concerns. No dizziness. Continues on 0.03mcg/kg/min Norepinephrine. No urinary or respiratory symptoms to suggest infective etiology. Drinking well without. 4 week of general progressive decline. [place] like she had the flu without the fever or chills. Nausea, loss of appetite and generalized fatigue. [place]le weakness but was not specifically proximal muscles. More acute decline over last 2 days with associated hypotension. Review of Systems Review of Systems: All systems reviewed & are unremarkable except as noted in Subjective Physical Exam Constitutional: WD/WN, vitals as above Eyes: + anicteric sclerae; normal pupil size ENMT: external ear and nose normal, oropharynx normal Neck: trachea midline, no thyromegaly Respiratory: normal respiratory effort, lungs clear to auscultation Cardiovascular: RRR, no murmur, no edema Gastrointestinal (Abdomen): normal bowel sounds, soft, nontender, no hepatosplenomegaly Musculoskeletal: no cyanosis or clubbing, extremities motor strength 5/5 Skin: no rashes, warm and dry Neurologic: moves all extremities and awake; not confused Psychiatric: A+Ox3, euthymic affect Results & Data Results & Data ([facility]) Vital Signs (Past 12 Hours) Vital Signs Temp Pulse Pulse Resp BP BP BP 09/27/21 06:30 80 22 97/66 L 09/27/21 06:00 77 16 116/70 09/27/21 05:30 83 14 138/87 09/27/21 05:00 86 20 96/70 L 09/27/21 04:30 87 18 111/65 09/27/21 04:00 37 C 84 20 105/68 09/27/21 03:30 85 17 105/72 09/27/21 03:00 90 89 18 105/70 09/27/21 02:01 92 H 18 100/64 09/27/21 01:30 85 14 106/74 09/27/21 01:00 81 13 117/76 09/27/21 00:30 87 14 118/80 09/27/21 00:25 36.4 C L 92 H 16 66/36 L 09/27/21 00:00 85 12 120/70 09/26/21 23:51 85 16 123/89 09/26/21 23:45 88 21 Pulse Ox 09/27/21 06:30 97 09/27/21 06:00 95 09/27/21 05:30 95 09/27/21 05:00 94 09/27/21 04:30 93 09/27/21 04:00 94 09/27/21 03:30 96 09/27/21 03:00 89 L 09/27/21 02:01 92 09/27/21 01:30 94 09/27/21 01:00 95 09/27/21 00:30 94 09/27/21 00:25 98 09/27/21 00:00 95 09/26/21 23:51 94 09/26/21 23:45 95 PG Care Time/CCT Total # of Minutes Spent Total Time Spent with Patient: Total time spent is greater than 50% in coordination of care (as documented) at patient's floor/unit and/or counseling patient: Coding Level of Care Code 44943 Subseq Hosp Care Lvl 3 Diagnoses Shock R57.9 ARF (acute renal failure) N17.9 Metastatic renal cell carcinoma C64.1 Laterality: right Back pain at L4-L5 level M54.50 Hypothyroidism E03.9 Numbness and tingling of both legs R20.0; R20.2 GERD (gastroesophageal reflux disease) K21.9 (1) Metastatic renal cell carcinoma Laterality: right Qualified Code(s): C64.1 - Malignant neoplasm of right kidney, except renal pelvis
[2021-09-27] MEDS: ASCORBIC ACID 500 MG TAB PO SCH (11:06)
[2021-09-27] MEDS: PANTOprazole 40 MG in SYRINGE 0 ML IV SCH (11:06)
--- NOTE | 2021-09-27 11:42 | Critical Care Progress Note ---
Date of Service September 27, 2021 Assessment & Plan (1) Shock: Plan: Reason Critically Ill: 61-year-old female with metastatic renal cell carcinoma and solitary kidney presents to the ICU in shock requiring vasopressor support Neuro - [facility] ICU: Negative Cardiac - [facility] septic versus adrenal insufficiency -See ID below for treatment of sepsis -Possible adrenal insufficiency as patient has been weaned from prednisone recently. Received 150 mg hydrocortisone in the ED. Will proceed with 50 mg every 6 -Received 2.5 L crystalloid bolus. Continue with IV fluid resuscitation -Hold antihypertensives -Central line inserted for vasopressors. Currently on Levophed drip and will titrate for maps greater than 65 Respiratory - No history of pulmonary disease. Currently maintaining oxygen saturation on room air without labored breathing. Continuous monitoring pulse ox GI - N.p.o. Famotidine RENAL/LYTES - Acute renal failurecreatinine 3.86 with baseline 0.96 and patient with solitary kidney. Improving. -Likely ATN secondary to hypotension -Follow-up US duplex renal artery -Continue maintain maps greater than 65 -Continue with IV fluid resuscitation -Avoid nephrotoxins and renally adjust medications -Monitor with routine BMPs Metastatic renal cell carcinomainitial stage of three with mets to liver, left kidney, IVC, left hilar -Most recent scan without evidence of metastasis -Currently maintained on Keytruda which she states she received Wednesday - Foleystrict I's and O's ENDO - No history of diabetes, ICU hyperglycemic protocol Hypothyroidcontinue Synthroid HEME - H&H stable, monitor routine CBCs ID - Sepsis?Patient with normal WBC and afebrile but currently in shock with elevated procalcitonin. Without clear source patient on chemotherapy and steroids. -Continue broad-spectrum antibiotics cefepime, vancomycin -Follow-up urine and blood culture LINES/IV ACCESS - Right internal jugular line DVT PROPHYLAXIS - SCDs, Heparin 5000 units TID Remain in ICU while on levophed (2) Back pain at L4-L5 level: (3) GERD (gastroesophageal reflux disease): (4) ARF (acute renal failure): (5) Metastatic renal cell carcinoma: (6) Solitary kidney: Admission and Anticipated Discharge Date Admission Date: September 26, 2021 Subjective Patient without complaint. Remains on low dose levo. Review of Systems Review of Systems: All systems reviewed & are unremarkable except as noted in Subjective Physical Exam Constitutional: cooperative and comfortable Eyes: PERRL, conjunctivae normal, anicteric sclerae ENMT: external ear and nose normal, oropharynx normal Neck: trachea midline, no thyromegaly Respiratory: normal respiratory effort, lungs clear to auscultation Cardiovascular: RRR, no murmur, no edema Heart Sounds: normal S1 and normal S2 Vessels: no JVD Extremities: normal capillary refill Gastrointestinal (Abdomen): normal bowel sounds, soft, nontender, no hepatosplenomegaly Musculoskeletal: no cyanosis or clubbing, extremities motor strength 5/5 Skin: no rashes, warm and dry Neurologic: PERRL, EOMI, accommodation nl, no face palsy, no dysarthria Psychiatric: A+Ox3, euthymic affect Genitourinary: Indwelling Mart catheter present Results & Data Results & Data ([facility]) Vital Signs (Past 12 Hours) Vital Signs Temp Pulse Pulse Resp BP BP BP 09/27/21 06:30 80 22 97/66 L 09/27/21 06:00 77 16 116/70 09/27/21 05:30 83 14 138/87 09/27/21 05:00 86 20 96/70 L 09/27/21 04:30 87 18 111/65 09/27/21 04:00 37 C 84 20 105/68 09/27/21 03:30 85 17 105/72 09/27/21 03:00 90 89 18 105/70 09/27/21 02:01 92 H 18 100/64 09/27/21 01:30 85 14 106/74 09/27/21 01:00 81 13 117/76 09/27/21 00:30 87 14 118/80 09/27/21 00:25 36.4 C L 92 H 16 66/36 L 09/27/21 00:00 85 12 120/70 09/26/21 23:51 85 16 123/89 09/26/21 23:45 88 21 Pulse Ox 09/27/21 06:30 97 09/27/21 06:00 95 09/27/21 05:30 95 09/27/21 05:00 94 09/27/21 04:30 93 09/27/21 04:00 94 09/27/21 03:30 96 09/27/21 03:00 89 L 09/27/21 02:01 92 09/27/21 01:30 94 09/27/21 01:00 95 09/27/21 00:30 94 09/27/21 00:25 98 09/27/21 00:00 95 09/26/21 23:51 94 09/26/21 23:45 95 Coding Level of Care Code 46213 Subseq Hosp Care Lvl 2 Diagnoses Shock R57.9 Back pain at L4-L5 level M54.50 GERD (gastroesophageal reflux disease) K21.9 ARF (acute renal failure) N17.9 Metastatic renal cell carcinoma C64.1 Laterality: right Solitary kidney Q60.0 (1) Metastatic renal cell carcinoma Laterality: right Qualified Code(s): C64.1 - Malignant neoplasm of right kidney, except renal pelvis
[2021-09-27] MEDS: CEFEPIME 2,000 MG in SYRINGE 0 ML IV SCH (16:07)
[2021-09-27] MEDS: NOREPINEPHRINE/D5W 8 MG/508 ML BAG IV SCH (18:49)
[2021-09-27] MEDS ORDERED: CEFEPIME 2,000 MG in SYRINGE 0 ML IV SCH (20:00)
--- NOTE | 2021-09-27 20:55 | XCELERA ---
[id number] \\[id number]_[id number]
[2021-09-27] MEDS ORDERED: VANCOMYCIN HCL 1,000 MG in SODIUM CHLORIDE 0.9% 250 ML IV SCH (22:00)
[2021-09-27] MEDS: oxyCODONE HCL IR 5 MG TAB (IMMEDIATE RELEASE) PO PRN (22:51)
[2021-09-28] MEDS: NORMOSOL-R 1,000 ML IV SCH (02:54)
[2021-09-28] MEDS: CEFEPIME 2,000 MG in SYRINGE 0 ML IV SCH ×2 (03:44→15:21)
[2021-09-28] MEDS: HYDROCORTISONE SOD 50 MG in SYRINGE 0 ML IV SCH ×3 (03:44→20:36)
[2021-09-28] MEDS: HEPARIN SOD 5,000 UNIT/0.5 ML VIAL SQ SCH ×3 (05:34→20:36)
[2021-09-28 05:43] LABS: Hematocrit (blood only) 33.1 % (37-47); Hemoglobin 11.3 g/dL (12.0-16.0); Immature Granulocytes # (auto) 0.01 K/uL (0.00-0.02); Immature Granulocytes % (auto) 0.1 %; Lymphocytes # (auto) 0.61 K/uL (1.2-3.4); Lymphocytes % (auto) 6.8 %; Mean Corpuscular Hemoglobin 28.3 pg (25-34); Mean Corpuscular Hgb Conc 34.1 g/dL (32-36); Neutrophils # (auto) 7.51 K/uL (1.4-6.5); Neutrophils % (auto) 84.1 %; Platelet Count 266 K/uL (130-400); RDW Coefficient of Variation 16.4 % (11.5-14.5); RDW Standard Deviation 49.2 fL (36.4-46.3); Red Blood Count 3.99 M/uL (4.2-5.4); White Blood Count 8.93 K/uL (4.8-10.8)
[2021-09-28 06:19] LABS: Albumin Level 2.8 gm/dl (3.4-5.0); BUN Creatinine Ratio 22.1 (10-20); Bilirubin,Total 0.4 mg/dl (0.2-1.0); C Reactive Protein 5.11 mg/dl (0-0.5); Calcium 7.1 mg/dl (8.5-10.1); Creatinine Clr Calc Pharmacy 59.7 ml/min; Est GFR (African American) 74.9 ml/min; Est GFR (Non-African American) 64.6 ml/min; Magnesium 2.3 mg/dl (1.7-2.4); Phosphorus 1.8 mg/dl (2.5-4.9); Potassium 3.4 mmol/L (3.5-5.1); Total Protein 4.7 gm/dl (6.0-8.3)
[2021-09-28] MEDS ORDERED: POTASSIUM PHOS 3 MMOL/1 ML INFUSION IV STA ×2 (06:45→10:33)
[2021-09-28] MEDS ORDERED: POTASSIUM PHOSPHATE 30 MMOL in SODIUM CHLORIDE 0.9% 500 ML IV ONE (07:15)
[2021-09-28] MEDS: FAMOTIDINE 20 MG TAB PO SCH ×2 (08:17→20:35)
--- NOTE | 2021-09-28 10:34 | Critical Care Progress Note ---
Date of Service September 28, 2021 Assessment & Plan (1) Shock: Plan: Reason Critically Ill: 61-year-old female with metastatic renal cell carcinoma and solitary kidney presents to the ICU in shock requiring vasopressor support Neuro - [facility] ICU: Negative Cardiac - Shockresolved. Echo with normal LVEF. Wean hydrocortisone over the next 2 to 3 days. Respiratory - No history of pulmonary disease. Currently maintaining oxygen saturation on room air without labored breathing. Continuous monitoring pulse ox GI - N.p.o. Famotidine RENAL/LYTES - Acute renal failureresolving. Likely from ischemic ATN. Replacing electrolytes. Metastatic renal cell carcinomainitial stage of three with mets to liver, left kidney, IVC, left hilar -Most recent scan without evidence of metastasis -Currently maintained on Keytruda which she states she received Wednesday - Foleystrict I's and O's ENDO - No history of diabetes, ICU hyperglycemic protocol Hypothyroidcontinue Synthroid HEME - H&H stable, monitor routine CBCs ID - Sepsis?Patient with normal WBC and afebrile but currently in shock with elevated procalcitonin. Without clear source patient on chemotherapy and steroids. -Continue broad-spectrum antibiotics cefepime, vancomycin -Follow-up urine and blood culture LINES/IV ACCESS - Right internal jugular line can be removed DVT PROPHYLAXIS - SCDs, Heparin 5000 units TID Stable for downgrade from the ICU. (2) Back pain at L4-L5 level: (3) GERD (gastroesophageal reflux disease): (4) ARF (acute renal failure): (5) Metastatic renal cell carcinoma: (6) Solitary kidney: Admission and Anticipated Discharge Date Admission Date: September 26, 2021 Subjective Hemodynamically stable and off vasopressor since yesterday afternoon. Tolerating diet. No complaints today. Review of Systems Review of Systems: All systems reviewed & are unremarkable except as noted in HPI & below Physical Exam Constitutional: cooperative and comfortable Eyes: PERRL, conjunctivae normal, anicteric sclerae ENMT: external ear and nose normal, oropharynx normal Neck: trachea midline, no thyromegaly Respiratory: normal respiratory effort, lungs clear to auscultation Cardiovascular: RRR, no murmur, no edema Heart Sounds: normal S1 and normal S2 Vessels: no JVD Extremities: normal capillary refill Gastrointestinal (Abdomen): normal bowel sounds, soft, nontender, no hepatosplenomegaly Musculoskeletal: no cyanosis or clubbing, extremities motor strength 5/5 Skin: no rashes, warm and dry Neurologic: PERRL, EOMI, accommodation nl, no face palsy, no dysarthria Psychiatric: A+Ox3, euthymic affect Genitourinary: Indwelling Mart catheter present Results & Data Results & Data ([facility]) Vital Signs (Past 12 Hours) Vital Signs Temp Pulse Pulse Resp BP BP Pulse Ox 09/28/21 06:03 80 20 94 09/28/21 04:00 36.9 C 79 14 135/77 94 09/28/21 02:00 73 20 118/59 L 93 09/28/21 01:00 85 17 91/62 L 93 09/28/21 00:00 37.2 C 86 15 117/73 93 09/27/21 23:00 86 16 111/66 94 Coding Level of Care Code 14933 Subseq Hosp Care Lvl 2 Diagnoses Shock R57.9 Back pain at L4-L5 level M54.50 GERD (gastroesophageal reflux disease) K21.9 ARF (acute renal failure) N17.9 Metastatic renal cell carcinoma C64.1 Laterality: right Solitary kidney Q60.0 (1) Metastatic renal cell carcinoma Laterality: right Qualified Code(s): C64.1 - Malignant neoplasm of right kidn ey, except renal pelvis
[2021-09-28] MEDS: ASCORBIC ACID 500 MG TAB PO SCH (11:13)
[2021-09-28] MEDS: PANTOprazole 40 MG in SYRINGE 0 ML IV SCH (11:15)
--- NOTE | 2021-09-28 12:23 | Hospitalist Progress Note ---
Date of Service September 28, 2021 Assessment & Plan (1) Shock: Plan: Shock requiring Levophed infusion to maintain MAPS Improved. Now off Levophed - can be transferred to med/tele from ICU. - DDX: Sepsis vs. Adrenal insufficiency vs. hypovolemia - most likely adrenal insufficiency from history - Patient resuscitated with 2L crystalloid. Now off IV fluids. - Responded to stress dose steroid- continue Hydrocortisone 50mg IV q8 - reduced by ICU team today, will continue to wean - Blood and urine culture pending- PCT 4.32 - negative @ 24 hours - Continue Vanco and Cefepime pending 48 hours negative blood cultures; can be discontinued if negative at 48 hours - TSH is normal - random cortisol not taken on admission - No new medications and no BB/CA channel blockers as cause (2) ARF (acute renal failure): Plan: Resolved. 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 - Patient is maintained on Pembrolizumab her Axitinib is on hold - will discuss with oncology as notable prior side effects of Pembrolizumab which was helped by steroids previously - Last treatment was last week. (4) Back pain at L4-L5 level: Plan: Suspect related to muscle spasms as not just contained to her back. ?secondary to Pembrolizumab +/- adrenal insufficiency. Will use lorazepam for muscle spasms and hopefully will improve with stopping Pembrolizumab and treatment of adrenal insufficiency. (5) Hypothyroidism: Plan: Stable TSH and T4 (6) Numbness and tingling of both legs: Plan: CK mildly elevated 267 - Consider MRI once stable - Has been ongoing so not acute change (7) GERD (gastroesophageal reflux disease): Plan: Changed PPI to IV while on high dose steroids and vasopressor Plan: VTE Prophylaxis - heparin 5000 units Q8H Diet - Low Na Disposition - stable for transfer to med/tele Admission and Anticipated Discharge Date Admission Date: September 26, 2021 Subjective Having severe muscle cramps still, especially at night. Reports relatively new onset of these symptoms in the past 4 weeks which has not resolved with IV hydrocortisone. No prior history of restless legs and she does not feel her legs moving but more intense pain. Tried baclofen and cyclobenzaprine as outpatient for this without resolution of symptom. Symptoms appear to correlate with Keytruda restarting. Otherwise appetite is good. No nausea or vomiting. No dizziness or lightheadedness. Review of Systems Review of Systems: All systems reviewed & are unremarkable except as noted in Subjective Physical Exam Constitutional: WD/WN, vitals as above Eyes: + anicteric sclerae; normal pupil size ENMT: external ear and nose normal, oropharynx normal Neck: trachea midline, no thyromegaly Respiratory: normal respiratory effort, lungs clear to auscultation Cardiovascular: RRR, no murmur, no edema Gastrointestinal (Abdomen): normal bowel sounds, soft, nontender, no he patosplenomegaly Musculoskeletal: no cyanosis or clubbing, extremities motor strength 5/5 Skin: no rashes, warm and dry Neurologic: moves all extremities and awake; not confused Psychiatric: Orientation: alert and oriented x 3 Affect: + tearful affect Results & Data Results & Data ([facility]) Vital Signs (Past 12 Hours) Vital Signs Temp Pulse Pulse Resp BP BP Pulse Ox 09/28/21 12:01 36.8 C 09/28/21 12:00 89 19 09/28/21 11:26 87 18 118/74 98 09/28/21 11:00 90 19 97 09/28/21 10:00 84 14 96 09/28/21 09:00 93 H 21 96 09/28/21 08:46 85 20 117/57 L 95 09/28/21 08:01 36.7 C 09/28/21 08:00 89 18 95 09/28/21 07:00 78 15 94 09/28/21 06:03 80 20 94 09/28/21 04:00 36.9 C 79 14 135/77 94 09/28/21 02:00 73 20 118/59 L 93 09/28/21 01:00 85 17 91/62 L 93 PG Care Time/CCT Total # of Minutes Spent Total Time Spent with Patient: Total time spent is greater than 50% in coordination of care (as documented) at patient's floor/unit and/or counseling patient: Coding Level of Care Code 11745 Subseq Hosp Care Lvl 2 Diagnoses Shock R57.9 ARF (acute renal failure) N17.9 Metastatic renal cell carcinoma C64.1 Laterality: right Back pain at L4-L5 level M54.50 Hypothyroidism E03.9 Numbness and tingling of both legs R20.0; R20.2 GERD (gastroesophageal reflux disease) K21.9 (1) Metastatic renal cell carcinoma Laterality: right Qualified Code(s): C64.1 - Malignant neoplasm of right kidney, except renal pelvis
[2021-09-28 12:47] LABS: Ferritin 412.5 ng/ml (8-388)
[2021-09-28] MEDS ORDERED: POTASSIUM CHLORIDE CRTAB 20 MEQ TABCR PO STA (13:36)
[2021-09-28] MEDS ORDERED: VANCOMYCIN HCL 1,000 MG in SODIUM CHLORIDE 0.9% 250 ML IV SCH ×2 (16:00→23:59)
--- NOTE | 2021-09-28 17:35 | Electrocardiogram Report ---
Test Reason : Blood Pressure : / mmHG Vent. Rate : 081 BPM Atrial Rate : 081 BPM P-R Int : 152 ms QRS Dur : 088 ms QT Int : 444 ms P-R-T Axes : 049 -03 057 degrees QTc Int : 515 ms Normal sinus rhythm Nonspecific T wave abnormality Prolonged QT Abnormal ECG When compared with ECG of 27-SEP-2020 05:43, QT has shortened Confirmed by Bartolo Ramirez ([id number]) on 09/28/2021 5:35:30 PM Referred By: Carloz Infante Confirmed By:Bartolo Ramirez
--- NOTE | 2021-09-28 17:53 | Electrocardiogram Report ---
Test Reason : Blood Pressure : / mmHG Vent. Rate : 085 BPM Atrial Rate : 085 BPM P-R Int : 138 ms QRS Dur : 072 ms QT Int : 484 ms P-R-T Axes : 052 006 071 degrees QTc Int : 575 ms Normal sinus rhythm Nonspecific ST and T wave abnormality Prolonged QT Abnormal ECG When compared with ECG of 27-SEP-2020 05:43, (unconfirmed) No significant change Confirmed by Bartolo Ramirez ([id number] on 09/28/2021 5:53:12 PM Referred By: Carloz Infante Confirmed By:Bartolo Ramirez
[2021-09-28] MEDS ORDERED: LORazepam 0.5 MG/1 ML VIAL IV PRN (19:12)
[2021-09-29 05:05] LABS: Hematocrit (blood only) 33.3 % (37-47); Hemoglobin 11.3 g/dL (12.0-16.0); Immature Granulocytes # (auto) 0.02 K/uL (0.00-0.02); Immature Granulocytes % (auto) 0.2 %; Lymphocytes # (auto) 1.06 K/uL (1.2-3.4); Lymphocytes % (auto) 12.3 %; Mean Corpuscular Hgb Conc 33.9 g/dL (32-36); Mean Corpuscular Volume 82.6 fL (80-100); Mean Platelet Volume 9.2 fL (7.4-10.4); Monocytes # (auto) 0.77 K/uL (0.11-0.59); Monocytes % (auto) 8.9 %; Neutrophils # (auto) 6.77 K/uL (1.4-6.5); Neutrophils % (auto) 78.6 %; Platelet Count 272 K/uL (130-400); RDW Coefficient of Variation 16.6 % (11.5-14.5); RDW Standard Deviation 49.9 fL (36.4-46.3); Red Blood Count 4.03 M/uL (4.2-5.4); White Blood Count 8.62 K/uL (4.8-10.8)
[2021-09-29 05:34] LABS: Albumin Level 2.9 gm/dl (3.4-5.0); BUN Creatinine Ratio 24.7 (10-20); Bilirubin Direct 0.1 mg/dl (0-0.2); Bilirubin,Total 0.4 mg/dl (0.2-1.0); Creatinine Clr Calc Pharmacy 77.7 ml/min; Est GFR (Non-African American) 88.9 ml/min; Magnesium 2.3 mg/dl (1.7-2.4); Phosphorus 1.8 mg/dl (2.5-4.9); Potassium 3.4 mmol/L (3.5-5.1); Total Protein 4.8 gm/dl (6.0-8.3)
[2021-09-29] MEDS: LEVOTHYROXINE SODIUM 100 MCG TABLET PO SCH (06:03)
[2021-09-29] MEDS: HYDROCORTISONE SOD 50 MG in SYRINGE 0 ML IV SCH ×2 (06:03→07:30)
[2021-09-29] MEDS: HEPARIN SOD 5,000 UNIT/0.5 ML VIAL SQ SCH ×3 (06:04→23:50)
[2021-09-29] MEDS ORDERED: POTASSIUM CHLORIDE CRTAB 20 MEQ TABCR PO STA (06:44)
[2021-09-29] MEDS: NORMOSOL-R 1,000 ML IV SCH (07:30)
[2021-09-29] MEDS: NOREPINEPHRINE/D5W 8 MG/508 ML BAG IV SCH (07:30)
[2021-09-29] MEDS: POT PHOSPHATE MONOBASIC W/ SOD TAB PO SCH ×4 (08:34→23:50)
[2021-09-29] MEDS: FAMOTIDINE 20 MG TAB PO SCH (08:34)
[2021-09-29] MEDS: PANTOprazole 40 MG TAB PO SCH (08:34)
--- NOTE | 2021-09-29 12:54 | Hospitalist Progress Note ---
Date of Service September 29, 2021 Assessment & Plan (1) Shock: Plan: Shock in setting of anti-hypertensives requiring Levophed infusion to maintain MAPS Resolved - DDX: Sepsis (now ruled out) vs. Adrenal insufficiency vs. 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 - Patient is maintained on Pembrolizumab her Axitinib is on hold - will discuss with oncology as notable prior side effects of Pembrolizumab which was helped by steroids previously - Last treatment was last week. (4) Back pain at L4-L5 level: Plan: Suspect related to muscle spasms as not just contained to her back. ?secondary to Pembrolizumab +/- adrenal insufficiency. Continue lorazepam at night but reduce dose to 0.25mg IV given sedation with 0.5mg IV (5) Hypothyroidism: Plan: Stable TSH and T4 (6) Numbness and tingling of both legs: Plan: CK mildly elevated 267 - No acute change since MRI in February (7) GERD (gastroesophageal reflux disease): Plan: Switch pantoprazole IV back to PO Can discontinue famotidine Plan: VTE Prophylaxis - heparin 5000 units Q8H Diet - Low Na Disposition - stable for transfer to med/tele Admission and Anticipated Discharge Date Admission Date: September 26, 2021 Subjective Slept through the night with 0.5mg IV lorazepam given for muscle spasms. Had good effect on muscle spasm but too sedating. 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 No abdominal pain, nausea or vomiting. Review of Systems Review of Systems: All systems reviewed & are unremarkable except as noted in Subjective Physical Exam Constitutional: WD/WN, vitals as above Eyes: + anicteric sclerae; normal pupil size Respiratory: normal respiratory effort, lungs clear to auscultation Cardiovascular: RRR, no murmur, no edema Gastrointestinal (Abdomen): normal bowel sounds, soft, nontender, no hepatosplenomegaly Musculoskeletal: currently having bilateral calf muscle spasms Skin: no rashes, warm and dry Neurologic: moves all extremities and awake; not confused Psychiatric: Orientation: alert and oriented x 3 Affect: euthymic affect Results & Data Results & Data ([facility]) Vital Signs (Past 12 Hours) Vital Signs Temp Pulse Resp BP Pulse Ox 09/29/21 08:30 37.1 C 84 16 121/65 95 09/29/21 04:00 36.9 C 84 20 137/77 96 PG Care Time/CCT Total # of Minutes Spent Total Time Spent with Patient: Total time spent is greater than 50% in coordination of care (as documented) at patient's floor/unit and/or counseling patient: Coding Level of Care Code 27418 Subseq Hosp Care Lvl 2 Diagnoses Shock R57.9 ARF (acute renal failure) N17.9 Metastatic renal cell carcinoma C64.1 Laterality: right Back pain at L4-L5 level M54.50 Hypothyroidism E03.9 Numbness and tingling of both legs R20.0; R20.2 GERD (gastroesophageal reflux disease) K21.9 (1) Metastatic renal cell carcinoma Laterality: right Qualified Code(s): C64.1 - Malignant neoplasm of right kidney, except renal pelvis
[2021-09-29] MEDS ORDERED: LORazepam 0.5 MG/1 ML VIAL IV PRN (13:26)
[2021-09-29] MEDS: HYDROCORTISONE SOD 25 MG in SYRINGE 0 ML IV SCH ×2 (13:32→23:51)
[2021-09-29] MEDS: ASCORBIC ACID 500 MG TAB PO SCH (13:32)
[2021-09-29] MEDS: LORazepam 0.25 MG/0.5 ML VIAL IV PRN (23:09)
[2021-09-30] MEDS: LORazepam 0.25 MG/0.5 ML VIAL IV PRN (03:47)
[2021-09-30] MEDS: LEVOTHYROXINE SODIUM 100 MCG TABLET PO SCH (06:30)
[2021-09-30] MEDS: HEPARIN SOD 5,000 UNIT/0.5 ML VIAL SQ SCH ×3 (06:30→21:15)
[2021-09-30] MEDS: oxyCODONE HCL IR 5 MG TAB (IMMEDIATE RELEASE) PO PRN ×2 (06:37→21:14)
[2021-09-30 08:22] LABS: Calcium 7.2 mg/dl (8.5-10.1); Creatinine Clr Calc Pharmacy 91.7 ml/min; Est GFR (African American) 112.8 ml/min; Est GFR (Non-African American) 97.3 ml/min; Potassium 3.4 mmol/L (3.5-5.1)
[2021-09-30 08:35] LABS: Phosphorus 1.4 mg/dl (2.5-4.9)
[2021-09-30 09:04] LABS: Urea Nitrogen, Random Urine 328 mg/dL
[2021-09-30] MEDS: POT PHOSPHATE MONOBASIC W/ SOD TAB PO SCH ×4 (09:17→21:16)
[2021-09-30] MEDS: HYDROCORTISONE 10 MG TAB PO SCH ×2 (09:17→16:39)
[2021-09-30] MEDS: PANTOprazole 40 MG TAB PO SCH (09:17)
[2021-09-30] MEDS ORDERED: LORazepam 0.5 MG/1 ML VIAL IV PRN (11:06)
[2021-09-30] MEDS: POTASSIUM CHLORIDE CRTAB 20 MEQ TABCR PO SCH ×2 (11:25→21:15)
[2021-09-30] MEDS: ASCORBIC ACID 500 MG TAB PO SCH (11:25)
--- NOTE | 2021-09-30 16:08 | Hospitalist Progress Note ---
Date of Service September 30, 2021 Assessment & Plan (1) Shock: Plan: Shock in setting of anti-hypertensives requiring Levophed infusion to maintain MAPS Resolved - DDX: Sepsis (now ruled out) vs. Adrenal insufficiency vs. 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 - Blood culture negative @ 48 hours - antibiotics discontinued - TSH is normal - random cortisol not taken on admission - holding home anti-hypertensives - rocha catheter removed -Replacement given for hypophosphatemia and hypokalemia. (2) Adrenal insufficiency: Plan: As above hydrocortisone 20/10mg PO - can be discharged on this dose. 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 (3) ARF (acute renal failure): Plan: Resolved. 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 - Patient is maintained on Pembrolizumab her Axitinib is on hold - will discuss with oncology as notable prior side effects of Pembrolizumab which was helped by steroids previously - Last treatment was last Wednesday. (5) Back pain at L4-L5 level: Plan: Suspect related to muscle spasms as not just contained to her back. ?secondary to Pembrolizumab +/- adrenal insufficiency. Continue lorazepam at night; will increase back to 0.5mg IV (6) Hypothyroidism: Plan: Stable TSH and T4 (7) Numbness and tingling of both legs: Plan: CK mildly elevated 267 - No acute change since MRI in February (8) GERD (gastroesophageal reflux disease): Plan: Switched pantoprazole IV back to PO Plan: VTE Prophylaxis - heparin 5000 units Q8H Diet - Low Na Disposition -continue on med telemetry due to electrolyte derangements Admission and Anticipated Discharge Date Admission Date: September 26, 2021 Subjective Increased muscle spasm pain last night with reduced dose of lorazepam. Otherwise doing well with her appetite and blood pressure appears stable. Review of Systems Review of Systems: All systems reviewed & are unremarkable except as noted in Subjective Physical Exam Constitutional: WD/WN, vitals as above Eyes: + anicteric sclerae; normal pupil size ENMT: external ear and nose normal, oropharynx normal Neck: trachea midline, no thyromegaly Respiratory: normal respiratory effort, lungs clear to auscultation Cardiovascular: RRR, no murmur, no edema Gastrointestinal (Abdomen): normal bowel sounds, soft, nontender, no hepatosplenomegaly Musculoskeletal: no cyanosis or clubbing, extremities motor strength 5/5 Skin: no rashes, warm and dry Neurologic: moves all extremities and awake; not confused Psychiatric: A+Ox3, euthymic affect Results & Data Results & Data ([facility]) Vital Signs (Past 12 Hours) Vital Signs Temp Pulse Pulse Resp BP Pulse Ox 09/30/21 15:57 36.5 C 82 20 128/81 97 09/30/21 15:56 84 09/30/21 11:48 36.3 C L 77 20 126/82 98 09/30/21 08:08 36.9 C 71 20 130/78 95 09/30/21 07:14 72 PG Care Time/CCT Total # of Minutes Spent Total Time Spent with Patient: Total time spent is greater than 50% in coordination of care (as documented) at patient's floor/unit and/or counseling patient: Coding Level of Care Code 64267 Subseq Hosp Care Lvl 2 Diagnoses Shock R57.9 ARF (acute renal failure) N17.9 Metastatic renal cell carcinoma C64.1 Laterality: right Back pain at L4-L5 level M54.50 Hypothyroidism E03.9 Numbness and tingling of both legs R20.0; R20.2 GERD (gastroesophageal reflux disease) K21.9 Adrenal insufficiency E27.40 (1) Metastatic renal cell carcinoma Laterality: right Qualified Code(s): C64.1 - Malignant neoplasm of right kidney, except renal pelvis
[2021-10-01] MEDS: LEVOTHYROXINE SODIUM 100 MCG TABLET PO SCH (06:09)
[2021-10-01] MEDS: HEPARIN SOD 5,000 UNIT/0.5 ML VIAL SQ SCH ×2 (06:09→13:01)
[2021-10-01 06:36] LABS: Calcium 7.3 mg/dl (8.5-10.1); Creatinine Clr Calc Pharmacy 104.8 ml/min; Est GFR (African American) 117.3 ml/min; Est GFR (Non-African American) 101.2 ml/min; Magnesium 1.9 mg/dl (1.7-2.4); Phosphorus 2.3 mg/dl (2.5-4.9); Potassium 4.2 mmol/L (3.5-5.1)
[2021-10-01] MEDS: HYDROCORTISONE 10 MG TAB PO SCH ×2 (08:38→16:23)
[2021-10-01] MEDS: POT PHOSPHATE MONOBASIC W/ SOD TAB PO SCH ×3 (08:38→16:23)
[2021-10-01] MEDS: PANTOprazole 40 MG TAB PO SCH (08:39)
[2021-10-01] MEDS ORDERED: POTASSIUM CHLORIDE CRTAB 20 MEQ TABCR PO SCH (09:00)
[2021-10-01] MEDS: ASCORBIC ACID 500 MG TAB PO SCH (11:43)
[2021-10-01 15:11] VITALS: TEMP 97.9; O2SAT 98
[2021-10-01 16:16] VITALS: BP 97/72; PULSE 79
--- NOTE | 2021-10-02 09:33 | Discharge Summary ---
Date of Service October 01, 2021 Admission HPI Per Admitting Provider 61 YOF with past medical history of: HTN, Hypothyroidism, solitary kidney and Renal cell carcinoma with right sided nephrectomy 2019 who has been battling side effects including weakness in bilateral extremities and diarrhea, appetite loss and weight loss. She has been on steroids to assist manage these symptoms of 5mg PO daily, which has been weaned off in late Aug. She has had ongoing lower back pain starting in Sep 06 with muscle spasms that are causing her to have her muscles tighten up as well as her legs and she has to spend most of her time lying down. She was evaluated by orthopaedics for her pain following a CT AP in without metastic disease and normal appearing left kidney and adrenal gland. 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 For her appetite loss she has recently stopped her Axitinib. She was to have a AM cortisol drawn within the upcoming weeks. Patient is mentating well and is appropriate at this time. She deneis any new medications starting, or having any fevers, chills, urinary symptoms or loss of bowels or bladder. Her back pain is in the lower lumbar region and is steady and sharp ache in nature, worsens with bending forward or sitting. Relieved somewhat by lying down. She has seen chiropractor recently and denies any injections. Patient comes to the EMD today following PCP evaluation where she was noted to be hypotensive, unsteadiness when getting up from standing. She did not endorse labored breathing or hypoxia however PCP note states she started showing signs of labored breathing and EMS was called. She arrived to the EMD remaining hypotensive and hypothermic, a septic workup was initiated to include blood culture, procalcitonin, lactate and VBG as well as routine CBC and BMP. She was initiated on Levophed infusion that was escalated to 0.12mcg/kg/min to maintain MAPS ~65. 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 PCT was elevated to 4 with normal lactate. She had CT of abdomen and pelvis done with no acute process, CXR without opacities or pneumothorax. She has no focal neurological deficits. Patient was initially given 50mg IV hydrocortisone without effect, and re-dose 100mg hydrocortisone for total of 150mg Hydrocortisone with increase in her BP and MAPS currently. Her TSH is normal and her electrolytes are within normal range. Urine was obtained for UA, renal lytes, renal ultrasound with Doppler ordered, She was started on Cefepime and Vancomycin for empiric coverage. ICU was consulted for admission. Principal Diagnosis Adrenal insufficiency (suspected due to Keytruda) Hypervolemic shock Acute kidney injury Discharge Exam Constitutional WD/WN, vitals as above Eyes + anicteric sclerae; normal pupil size ENMT external ear and nose normal, oropharynx normal Neck trachea midline, no thyromegaly Respiratory normal respiratory effort, lungs clear to auscultation Cardiovascular RRR, no murmur, no edema Gastrointestinal (Abdomen) normal bowel sounds, soft, nontender, no hepatosplenomegaly Musculoskeletal no cyanosis or clubbing, extremities motor strength 5/5 Skin no rashes, warm and dry Neurologic moves all extremities and awake; not confused Psychiatric A+Ox3, euthymic affect Discharge Data Allergies Allergy/AdvReac Type Severity Reaction Status Date / Time hydromorphone [From Dilaudid] AdvReac Intermediate N/V Verified 09/26/21 16:07 Consultations 09/26/21 21:06 ED Decision to Admit Stat 09/26/21 21:50 Consult Machinist 2Nd Shift Routine Ordered Studies 09/26/21 19:13 CT abd pelvis wo con Stat IMPRESSION: No acute abnormalities. 09/26/21 21:59 US duplex renal artery Routine IMPRESSION: 1. Prior right nephrectomy. 2. No evidence for left renal artery stenosis. Hospital Course (1) Shock: Margarita Mccormick is a 61 year old female admitted to from September 26-2021 due to reduced appetite, weakness, muscle spasms and low blood pressure. She was diagnosed with suspected adrenal insufficiency secondary to Keytruda and started on intravenous steroids, fluids and vasopressors in the intensive care unit. She responded to intravenous hydrocortisone and was able to be weaned off vasopressors after 24 hours. She has now been weaned to hydrocortisone 20 mg in the morning and 10 mg in the afternoon. Her antihypertensives have been discontinued. Recommend she follows up with her primary care physician for ongoing blood pressure management. 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 Her case was discussed with her oncologist (Gayathri Holguin) during her stay and they will arrange follow up to decide on future chemotherapy. Sepsis work-up was negative and antibiotics were stopped after 48 hours. Low phosphorus and potassium levels were replaced as her diet improved. Please continue supplements as prescribed for this and follow-up with your primary care physician for repeat lab work to see if these are continuously needed. Suspect she can stop the phosphorus supplementation after 1 week. Suspect her muscle spasms are either a separate side effect of Keytruda or part of your adrenal insufficiency and should improve with time. She is still having these especially at night on discharge however they do appear to be improving with treatment for her adrenal insufficiency. Lorazepam 0.5 mg p.o. has been helpful during her hospitalization therefore this was prescribed for her on discharge for short course but recommend not continued indefinitely. Oxycodone was discontinued as her pain is muscle spasm related and recommend she does not take both lorazepam and oxycodone. Please repeat BMP in approximately 1 to 2 weeks after discharge to monitor hypokalemia. (2) Adrenal insufficiency: (3) ARF (acute renal failure): (4) Metastatic renal cell carcinoma: (5) Back pain at L4-L5 level: (6) Hypothyroidism: (7) Numbness and tingling of both legs: (8) GERD (gastroesophageal reflux disease): Total Time Total Time Spent Total Time Spent (In Minutes): 45 Discharge Plan Discharge Items Patient Disposition: Home - Home Health Services Reason For Visit: HYPOTENSION, THAO, R/O SEPSIS Discharge Diagnosis: Adrenal insufficiency (suspected due to Keytruda) Shock Acute kidney injury Activity: Resume your previous activity Non-emergency contact: Primary Care Provider Call non-emergency contact if: you have any medication questions and your symptoms worsen Follow-up/Referrals: Carloz Infante DO [Primary Care Provider] - 10/08/21 11:20 am Gayathri Montenegro PA-C [Physician French Polisher] - (Outpatient appointment to be arranged) Diet: Low Sodium (2gm) Addtl Attending Provider Instructions: You were admitted to from September 26-2021 due to reduced appetite, weakness, muscle spasms and low blood pressure. He was diagnosed with suspected adrenal insufficiency secondary to Keytruda and started on intravenous steroids, fluids and vasopressors in the intensive care unit. Your blood pressure continuously improved with weaning of hydrocortisone and on discussion with endocrinology recommend continuing on 20 mg in the morning and 10 mg 8 hours after this. Your blood pressure medication has been discontinued due to low blood pressure, please follow-up with your primary care physician for ongoing management of this. Sepsis work-up was negative and antibiotics were stopped after 48 hours. Low phosphorus and potassium levels were replaced as your diet improved. Please continue supplements as prescribed for this and follow-up with your primary care physician for repeat lab work to see if these are continuously needed. Suspect you can stop the phosphorus supplementation after 1 week. Suspect your muscle spasms are either a separate side effect of Keytruda or part of your adrenal insufficiency and should improve with time. Until then will prescribe a short course of lorazepam to help with muscle spasms at night. Please do not take this during the day due to sedation. Recommend discontinuation of your oxycodone as combination of these medications can cause oversedation, increased risk of falls, confusion, hallucinations. Do not recommend returning to work especially with any heavy machinery or sharp objects until cleared by your primary care physician if appropriate on follow-up. Pending Studies at Discharge: No Stand-Alone Forms: [facility], Work/School Release, Smoking Cessation Medications and DC Order Prescriptions: New Phospha 250 Neutral 250 mg Tablet 1 tab PO QID 7 Days Qty: 28 RF: 0 hydrocortisone 10 mg tablet See Rx Instructions .ROUTE .COMPLEX Qty: 90 RF: 0 lorazepam 0.5 mg tablet 0.5 mg PO HS PRN (Reason: muscle spasm) Qty: 14 RF: 0 Continued Keytruda 25 mg/mL solution 2 mg/kg IV .EVERY 6 WEEKS RF: 0 levothyroxine 100 mcg tablet 100 mcg PO .COMPLEX 90 Days Qty: 90 RF: 0 Inlyta 1 mg tablet 2 mg PO .ON HOLD SINCE09/24/21 RF: 0 multivitamin tablet 1 tab PO QDL RF: 0 Prolia 60 mg/mL syringe 60 mg subcut UD RF: 0 nystatin 100,000 unit/gram powder 1 applic topical BID PRN (Reason: Rash) RF: 0 ascorbic acid (vitamin C) [Vitamin C] 1,000 mg Tablet 1 g PO QDL RF: 0 cholecalciferol (vitamin D3) [Vitamin D3] 25 mcg (1,000 unit) Tablet 1,000 unit PO QAM RF: 0 potassium gluconate 595 mg (99 mg) Tablet 595 mg PO QDL RF: 0 ondansetron HCl 8 mg tablet 8 mg PO Q8 PRN (Reason: Nausea) RF: 0 pantoprazole 40 mg tablet,delayed release (DR/EC) 40 mg PO DAILY RF: 0 Discontinued lisinopril-hydrochlorothiazide 20-12.5 mg tablet 0.5 tab PO QAM Qty: 90 RF: 1 oxycodone 5 mg tablet 5 mg PO .EVERY 4-6 HOURS PRN (Reason: Pain) RF: 0 cyclobenzaprine 10 mg tablet 10 mg PO HS PRN (Reason: Muscle Spasm) RF: 0 Discharge Orders: Discharge Order (Routine); Ordered 10/01/21 Ordered By: Alok More Admission Data Admit Date/Time: 09/26/21 21:50 Attending Provider: Alok More Admit Provider: Patty Gates Primary Care Provider: Carloz Infante Other Providers: [facility] ; [place] ; Patty Gates ; Vijay Adams Other Interventions: Discharge Summary Assessment (RN) Last Done: 10/01/21 16:15 Coding Level of Care Code D/C DAY MANAGEMENT >30 MINS Diagnoses Shock R57.9 Adrenal insufficiency E27.40 ARF (acute renal failure) N17.9 Metastatic renal cell carcinoma C64.1 Laterality: right Back pain at L4-L5 level M54.50 Hypothyroidism E03.9 Numbness and tingling of both legs R20.0; R20.2 GERD (gastroesophageal reflux disease) K21.9 Home Health Attestation I certify that this patient is under my care and that I, or a physicians minister assistant working with me, had a face to-face encounter that meets the home health [id number] encounter requirements with this patient. The encounter with the patient was in whole, or in part, for the following medical condition, which is the primary reason for home health care (list medical condition): I certify that, based on my findings, the following services are medically necessary home health services: My clinical findings support the need for the above services because: Further, I certify that my clinical findings support that this patient is homebound (i.e. absences from home require considerable and taxing effort and are for medical reasons or mosque services or infrequently or of short duration when for other reasons) because: Certification for Home Health Services: Based on the above findings, I certify that this patient is confined to the home and needs intermittent mcc care, physical therapy and/or speech therapy or continues to need occupational therapy. The patient is under my care, and I have initiated the establishment of the plan of care. This patient will be followed by a physician who will periodically review the plan of care.
== END 2021-10-01 17:42 | disposition home health service (06) | DRG 643 ==
LOC: ED 17:14 → SUATTDRO 21:50 → 1E 21:50 → 2N 09-29 18:06